=== PATIENT | male | born 1935 | race Caucasian/White ===

== ENCOUNTER 2017-05-18 08:46 | Observation (INO) | payer OTHER ==
[2017-05-10 13:59] VITALS: BMI 27.0
--- NOTE | 2017-05-10 14:23 | PAT Medication Instructions ---
Service Date May 10, 2017. Current Home Medication List Ascorbic Acid (Vitamin C/Janine Hips Tr), 1 TAB PO QAM Ciprofloxacin (Ciprofloxacin HCl), 1 TAB PO BID Finasteride (Proscar), 5 MG PO QAM Multiple Vitamins W/ Minerals (Centrum Silver Adult 50+), 1 TAB PO QAM Omeprazole (Prilosec), 20 MG PO QAM Sennosides-Docusate Sodium (Stool Softener), 2 TAB PO QAM Medication Instructions For Your Scheduled Surgery - Continue as directed: Ciprofloxacin (Ciprofloxacin HCl), 1 TAB PO BID - Hold the following medications the morning of surgery: Sennosides-Docusate Sodium (Stool Softener), 2 TAB PO QAM Multiple Vitamins W/ Minerals (Centrum Silver Adult 50+), 1 TAB PO QAM Ascorbic Acid (Vitamin C/Janine Hips Tr), 1 TAB PO QAM - Take the following medications the morning of surgery with a sip of water OTHERWISE NOTHING TO EAT OR DRINK AFTER MIDNIGHT: Finasteride (Proscar), 5 MG PO QAM Omeprazole (Prilosec), 20 MG PO QAM If you have any questions please call us at [phone] or [phone] or [phone]
--- NOTE | 2017-05-10 15:08 | DIAGNOSTIC IMAGING REPORT ---
CHEST 2 VIEWS ROUTINE CLINICAL HISTORY: pat preoperative evaluation COMPARISON STUDY: 10/07/2014 FINDINGS: Chronic fibrotic change medial left base. Lungs otherwise are clear. Diaphragms smooth. Costophrenic angles are sharp. IMPRESSION: Chronic change. No acute process. Electronically signed by: Duc Sahu M.D. 05/10/2017 3:07 PM Dictated Date/Time: 05/10/2017 3:06 PM
[2017-05-10 15:40] LABS: BASO % 0.1 %; BASO ABS # 0.01 K/uL (0-0.2); COMPLETE YES; HEMATOCRIT 37.5 % (42-52); IG% 0.2 %; LYMPH ABS # 1.25 K/uL (1.2-3.4); MEAN CELL VOLUME 89.1 fL (80-100); MEAN CORPUSCULAR HEMOGLOBIN 29.7 pg (25-34); MEAN CORPUSCULAR HGB CONC 33.3 g/dl (32-36); MEAN PLATELET VOLUME 9.5 fL (7.4-10.4); NEUT % 70.7 %; PLATELET COUNT 262 K/uL (130-400); RED BLOOD COUNT 4.21 M/uL (4.7-6.1); WHITE BLOOD COUNT 8.34 K/uL (4.8-10.8)
[2017-05-10 15:53] LABS: BUN/CREATININE RATIO 20.7 (10-20); CALCIUM 8.3 mg/dl (8.5-10.1)
[2017-05-10 15:59] LABS: INR 1.2 (0.9-1.1); PARTIAL THROMBOPLASTIN RATIO 1.2; PROTHROMBIN TIME (PATIENT) 12.5 SECONDS (9.0-12.0)
[2017-05-18] VITALS (9 sets, daily range): BP systolic 101–189; BP diastolic 50–90; PULSE 53–79; TEMP 36.4–36.6; O2SAT 93–97; Ht 165.1 cm; Wt 74.6 kg
[~2017-05-18] VITALS: Ht 165.1 cm; Wt 74.6 kg
[~2017-05-18 08:46] MED LIST: CPR250 PO; FINA5TAB PO; GENTAMICIN INJ 240 MG in DEXTROSE 5% 100ML 100 ML IV SCH; LACTATED RINGER'S 1000ML 1,000 ML IV SCH; MULT-845 PO; PRLSR20 PO; SENNTAB23 PO; [UNRECOGNIZED DRUG - CODE] PO
[2017-05-18] MEDS ORDERED: NITR-5 PO (09:30)
[2017-05-18] MEDS ORDERED: DEXAMETHASONE SOD INJ 4 MG/ML VIAL ONE (09:48)
[2017-05-18] MEDS ORDERED: PROPOFOL IV EMULSION 10 MG/ML 20 ML VIAL IV ONE (09:48)
[2017-05-18] MEDS ORDERED: ONDANSETRON INJ 2 MG/ML 2 ML VIAL ONE (09:48)
[2017-05-18] MEDS ORDERED: LIDOCAINE HCL 2% 2 ML VIAL (20MG/ML) ONE (09:48)
[2017-05-18] MEDS ORDERED: FENTANYL CITRATE INJ 50 MCG/1 ML 2 ML VIAL ONE (09:48)
[2017-05-18] MEDS ORDERED: EpHEDrine SULFATE INJ 50 MG/ML AMP IV PRN (10:00)
[2017-05-18] MEDS ORDERED: ATROPINE SULFATE 0.1 MG/ML 5ML SYR IV PRN (10:00)
[2017-05-18] MEDS ORDERED: FENTANYL CITRATE INJ 50 MCG/1 ML 2 ML VIAL IV PRN (10:00)
[2017-05-18] MEDS ORDERED: MoRPHine SULFATE 2 MG/ML CARP ONE ×2 (10:18→12:56)
--- NOTE | 2017-05-18 11:04 | History & Physical Bridge Note ---
H&P Re-Evaluation Bridge Note: I have examined the patient, reviewed the History & Physical and in the interval since the performance of the History & Physical I have noted the following changes of clinical significance: No changes noted
--- NOTE | 2017-05-18 11:25 | Anesthesiology Progress Note ---
Anesthesia Post Op Note Date & Time May 18, 2017 at 11:25 Vital Signs Pain Intensity: 0 Vital Signs Past 12 Hours Date Time Temp Pulse Resp B/P (MAP) Pulse Ox O2 Delivery O2 Flow Rate FiO2 05/18/17 09:00 36.5 65 20 170/82 (111) 95 Room Air Notes Mental Status: alert / awake / arousable, participated in evaluation Pt Amnestic to Procedure: Yes Nausea / Vomiting: adequately controlled Pain: adequately controlled Airway Patency, RR, SpO2: stable & adequate BP & HR: stable & adequate Hydration State: stable & adequate Anesthetic Complications: no major complications apparent
[2017-05-18] MEDS ORDERED: EpHEDrine SULFATE INJ 50 MG/ML AMP ONE (11:30)
--- NOTE | 2017-05-18 13:29 | [facility] Post Operative Brief Note ---
Immediate Operative Summary Operative Date May 18, 2017. Pre-Operative Diagnosis Urinary retention, benign prostate hypertrophy Post-Operative Diagnosis Same as pre-op Procedure(s) Performed Transuretheral Resection of Prostate, Bladder Biopsy Surgeon Dr Arzate Peanut Butter Maker Surgeon(s) None Estimated Blood Loss 50 Findings posterior wall of bladder with papillary changes that could not be distinguished between bladder cancer and catheter trauma was biopsied pt with moderate sized obstructing prostate Specimens A: Posterior Wall, Bladder biopsy B. prostate chips
[2017-05-18] MEDS ORDERED: MoRPHine SULFATE 2 MG/ML CARP IV PRN (13:30)
[2017-05-18] MEDS ORDERED: HYDROCODONE/ACETAMOPHEN 5/325MG TAB PO PRN (13:30)
--- NOTE | 2017-05-18 13:40 | [facility] Operative Report ---
Operative Report Operative Date May 18, 2017. Pre-Operative Diagnosis Urinary retention, benign prostate hypertrophy Surgeon Dr Arzate Cognos Bi Administrator Surgeon(s) None Estimated Blood Loss 50 Findings obstructed prostate papillary changes on posterior wall Specimens A: Posterior Wall, Bladder biopsy B. prostate chips Drains 22 polo w 30 cc ballon Disposition Recovery Room / PACU Description of Procedure The patient was taken to the cystoscopy suite where general anesthesia was administered. He was given gentamicin preoperatively and had Venodyne stockings placed prior to anesthesia. Cystoscopy was performed with a 21 Syrian cystoscope. Papillary changes on the posterior wall were biopsied and these areas were cauterized. Resectoscope was passed using the bipolar button resection was performed of the patient's prostate. The 1. loop was used to resect some prostate tissue. And then the button was replaced. Then of the procedure there was a good channel from the vera montanum into the bladder all the chips were retrieved from the bladder. The ureteral orifices were seen and away from the resection. There is no evidence of any bleeding in the prostatic urethra. A 22 Syrian Polo catheter was passed with a catheter guide and 30 mL were placed in the balloon. The catheter was irrigated and the urine was clear. The patient was transferred to the recovery room in stable condition. I attest to the content of the Intraoperative Record and any orders documented therein. Any exceptions are noted below.
[2017-05-18] MEDS ORDERED: IV FLUIDS COMPLETED PRN (13:45)
[2017-05-18] MEDS: SODIUM CHLORIDE 0.9% 1000ML 1,000 ML IV SCH (14:33)
--- NOTE | 2017-05-18 15:56 | Medical Consult ---
Consultation Date of Consultation: May 18, 2017. Attending Physician: Jeovanny Arzate M.D. Reason for Consultation: Medical Management History of Present Illness This is a 81 yo M with PMHx of urinary retention, BPH, remote smoking history from age [age] with unspecified amount, recent hx of indwelling polo x 6 weeks and now s/p TURP by Dr. Arzate. The patient, his , and daughter are all present at bedside. The patient was seen and examined this afternoon, he is doing very well s/p TURP, and reports not having any pain. He has not yet been up and moving about since the procedure, normally he ambulates without any assistance. He is wearing oxygen, but asked me why the oxygen needs to be on, he doesn't require any supplemental O2 at baseline. The patient denies passing gas or having a bowel movement yet. He has been ordered a diet although has not eaten anything yet, he is requesting to be fed. He reports that he has not previously followed with the PCP, but that he most recently saw Renaldo Townsend PA-C, in [facility]. I have asked the patient and his to follow up with him within 1-2 weeks after discharge. Past Medical/Surgical History Urinary Retention BPH s/p Turp Social History Smoking Status: Former Smoker Smokeless Tobacco Use: No Alcohol Use: none Drug Use: none Marital Status: Housing Status: lives with significant other Occupation Status: employed Allergies Coded Allergies: No Known Allergies (Unverified , 05/18/17) Current Inpatient Medications Current Inpatient Medications Medications (Trade) Dose Ordered Sig/Jolynn Route Start Time Stop Time Status Last Admin Dose Admin Lactated Ringer's 1,000 ml @ 15 mls/hr Q24H IV 05/18/17 06:00 05/19/17 05:59 05/18/17 09:10 15 MLS/HR Gentamicin Sulfate 240 mg/ Dextrose 106 ml @ 100 mls/hr PREOP@0600 IV 05/18/17 06:00 05/18/17 16:00 05/18/17 11:10 100 MLS/HR Sodium Chloride 1,000 ml @ 80 mls/hr [id number] IV 05/18/17 13:29 06/17/17 13:28 05/18/17 14:33 80 MLS/HR Morphine Sulfate (MoRPHine SULFATE INJ) 2 mg Q1H PRN IV 05/18/17 13:30 06/01/17 13:29 Acetaminophen/ Hydrocodone Bitart ([place] 5/325 Tab) 1 tab Q4H PRN PO 05/18/17 13:30 06/01/17 13:29 Trimethoprim/ Sulfamethoxazole (Septra 400/80MG Tab) 1 tab Q12H PO 05/18/17 13:45 05/19/17 13:44 UNV Miscellaneous (Iv Fluids Completed) 1 ea PRN PRN N/A 05/18/17 13:45 05/18/18 13:44 Review of Systems Constitutional: No fever, sweats or chills Eyes: No diplopia, no worsening or blurred vision ENT: normal hearing, no trouble swallowing Respiratory: No cough, sputum, dyspnea at rest or on exertion Cardiovascular: No chest pain, tightness or palpitations Abdomen: No pain, nausea, vomiting, diarrhea or constipation Musculoskeletal: No joint pain, calf pain, swelling Neurologic: No weakness, numbness/tingling, or balance problems Psychiatric: No anxiety or depression Skin: No rash or itch Physical Exam Date Time Temp Pulse Resp B/P (MAP) Pulse Ox O2 Delivery O2 Flow Rate FiO2 05/18/17 15:15 36.4 53 18 174/89 (117) 97 Nasal Cannula 3.0 05/18/17 15:07 189/89 (122) 05/18/17 14:45 53 15 188/80 (116) 96 Nasal Cannula 2.0 05/18/17 14:15 93 Nasal Cannula 3.0 05/18/17 14:15 Nasal Cannula 3.0 05/18/17 13:50 36.5 59 14 158/91 95 Nasal Cannula 3 05/18/17 13:40 64 14 145/87 96 Nasal Cannula 3 05/18/17 13:30 57 14 156/86 96 Mask 10 05/18/17 13:20 73 14 146/75 95 Mask 10 05/18/17 13:13 36.6 80 14 163/88 97 Mask 10 05/18/17 09:00 36.5 65 20 170/82 (111) 95 Room Air General: awake, alert, no apparent distress Head: Normocephalic, atraumatic ENT: PERRL, EOMI, no pharyngeal exudate, mucous membranes moist Chest: On 2 L O2 via NC, + faint crackles at bilateral bases, no wheezes rales. Cardiac: Regular rate and rhythm, no murmur, no JVD, normal peripheral pulses, good capillary refill Abdominal: NABS x 4 quadrants, soft, nontender to palpation, no rebound, guarding or tenderness : indwelling Polo catheter in place, draining clear yellow urine, no hematuria, no clots Extremities: Normal inspection, no peripheral edema or erythema, calfs nontender to palpation Psych: Normal mood and affect Neuro: AAO x 3, strength intact bilaterally and related 5/5, no motor deficits, speech is clear, no peripheral sensory deficits Skin: dark and light pigmentation changes over skin on face, chest and back. Assessment & Plan This is a 81 yo M with PMHx of urinary retention, BPH, remote smoking history from age [age] with unspecified amount, recent hx of indwelling polo x 6 weeks and now s/p TURP by Dr. Arzate. BPH / Urinary retention s/p TURP by Dr. Arzate on 05/18/17 - Pain control with [place] 1 tab Q4H prn & morphine 1 mg IV Q2H prn per the primary team - Continue indwelling Polo for now, void trial per the primary team - Patient received 1 dose of gentamicin prior to procedure, continue Bactrim Q12H per primary team - Flomax currently held Hypertension - Medical service consulted for this reason - Likely chronic as the patient has not followed with PCP in the past, and patient reports that his BP is commonly in the 140s to 150s. Today SBP has been in 160s to 180s, patient denies anxiety or pain at all today. The patient's heart rate has been in the 50s and 60s, so will not add on a beta joselo at this time. - Start the patient on lisinopril 5 mg daily, first dose now. His Cr. is good at 1.00 currently, baseline appears to be 1.1-1.2 - IV hydralazine 25 mg IV Q6H for SBP > 160 - Patient will require follow-up with newly designated PCP, Renaldo Vasqeuz, in [place] within 1-2 weeks after discharge DVT prophylaxis: Teds, SCDs CODE STATUS: Full code Disposition: Patient from home, lives with his , likely discharge within 1- 2 days. Thank you for this consultation, we will continue to follow along. Patient is seen postoperatively from a TURP, he has a history of hypertension, he presents now with continued persistent hypertension postop The patient has not had frequent medical care however this TURP resulted from BPH requiring a chronic indwelling Polo catheter Despite his hypertension he said no chest pain pressure shortness of breath Vital signs show blood pressures be elevated 170 over 90s heart rate is not tachycardic Cardiac is regular slight lungs are clear there is no peripheral edema Hypertension in poor control, the patient was started on low-dose lisinopril with backup hydralazine when necessary with instructions to follow-up his primary care provider after discharge for further titration of his medications
[2017-05-18] MEDS ORDERED: HydrALAZINE HCL 20 MG/ML VIAL IV. PRN (16:45)
[2017-05-18] MEDS: LISINOPRIL 5 MG TAB PO SCH (17:26)
[2017-05-18] MEDS: SULFAMETHOXAZOLE/TRIMETHOPRIM 400/80MG TAB PO SCH (21:15)
[2017-05-18] MEDS ORDERED: SODIUM CHLORIDE 0.65% NA SOLN 45 ML (OCEAN) ONE (23:24)
[2017-05-18] MEDS ORDERED: NURSING VERBAL MED ORDER ONE (23:30)
[2017-05-18] MEDS ORDERED: SODIUM CHLORIDE 0.65% NA SOLN 45 ML (OCEAN) PRN (23:45)
[2017-05-19] MEDS: SODIUM CHLORIDE 0.9% 1000ML 1,000 ML IV SCH (01:53)
[2017-05-19 03:32] VITALS: BP 132/55; PULSE 62; TEMP 36.6; O2SAT 96
[2017-05-19 06:55] VITALS: BP 152/71; PULSE 70; TEMP 36.6; O2SAT 97
[2017-05-19] MEDS: SULFAMETHOXAZOLE/TRIMETHOPRIM 400/80MG TAB PO SCH (07:13)
[2017-05-19] MEDS: LISINOPRIL 5 MG TAB PO SCH (07:13)
[2017-05-19] MEDS ORDERED: HydrALAZINE HCL 20 MG/ML VIAL IV. PRN (08:45)
--- NOTE | 2017-05-19 09:44 | Progress Note ---
Subjective Date of Service: May 19, 2017. Subjective Pt evaluation today including: conversation w/ patient, physical exam, chart review Voiding: polo catheter in place 81 year old male POD#[address] Arzate. Pt noted to have increased BP post op. He reports his BP is usually high. Appreciate Hospitalist input. Started on oral lisinopril as well as prn hydralazine. BP at a more normal range for pt. Otherwise he is doing well post op. Denies pain, nausea or vomiting. Ambulating in room. Tolerating diet. Polo intact draining clear yellow urine. He was on Macrobid prior to surgery for small amount (10,000) enterococcus in his urine. He has been afebrile. Review of Systems Constitutional: No fever, No chills Eyes: No worsening of vision ENT: No hearing loss Respiratory: No cough, No wheezing, No shortness of breath, No dyspnea on exertion Cardiac: No chest pain Abdomen: No pain, No nausea, No vomiting, No diarrhea, No constipation Male : + see HPI Psychiatric: No depression symptoms Heme: No abnormal bleeding/bruising Endo: No fatigue Objective Vital Signs Date Time Temp Pulse Resp B/P (MAP) Pulse Ox O2 Delivery O2 Flow Rate FiO2 05/19/17 07:15 Nasal Cannula 05/19/17 06:55 36.6 70 17 152/71 (98) 97 Nasal Cannula 3.0 05/19/17 03:32 36.6 62 16 132/55 (80) 96 Nasal Cannula 2.0 05/18/17 23:07 36.6 79 18 101/50 (67) 94 Nasal Cannula 3.0 05/18/17 20:51 36.5 57 18 167/83 (111) 95 Nasal Cannula 3.0 05/18/17 20:00 Nasal Cannula 3.0 05/18/17 17:15 36.5 56 16 177/82 (113) 97 Nasal Cannula 3.0 05/18/17 16:15 36.4 58 20 187/90 (122) 97 Nasal Cannula 3.0 05/18/17 15:15 36.4 53 18 174/89 (117) 97 Nasal Cannula 3.0 05/18/17 15:07 189/89 (122) 05/18/17 14:45 53 15 188/80 (116) 96 Nasal Cannula 2.0 05/18/17 14:15 93 Nasal Cannula 3.0 05/18/17 14:15 Nasal Cannula 3.0 05/18/17 13:50 36.5 59 14 158/91 95 Nasal Cannula 3 05/18/17 13:40 64 14 145/87 96 Nasal Cannula 3 05/18/17 13:30 57 14 156/86 96 Mask 10 05/18/17 13:20 73 14 146/75 95 Mask 10 05/18/17 13:13 36.6 80 14 163/88 97 Mask 10 Physical Exam General Appearance: WD/WN, no apparent distress Eyes: normal inspection ENT: hearing grossly normal Neck: no JVD Respiratory/Chest: no respiratory distress, no accessory muscle use Extremities: normal range of motion, non-tender Neurologic/Psychiatric: alert, normal mood/affect, oriented x 3 Assessment and Plan BPH with urinary retention s/p TURP BP decreased with lisinopril- will send him home on this and he will follow up with his PCP in 1-2 weeks. Doing well post op otherwise. Polo was removed without issue. Plan to d/c pt home today once he voids. He will continue the Macrobid he has at home until finished.
[2017-05-19] MEDS ORDERED: LISI-729 PO (09:48)
[2017-05-19] MEDS ORDERED: HYDR-5688 PO (09:48)
--- NOTE | 2017-05-19 09:52 | Discharge Instructions ---
Discharge Instructions Date of Service May 19, 2017. Admission Reason for Admission: Urinary Retention, Benign Prostatic Hyperplasia Discharge Discharge Diagnosis / Problem: Urinary retention; Benign Prostatic hyperplasia. Discharge Goals Goal(s): Improve function, Increase independence, Improve disease control, Prevent Disease Progression Activity Recommendations Activity Limitations: per Instructions/Follow-up section . Instructions / Follow-Up Instructions / Follow-Up 1. Do not lift >10lbs until follow up with Dr. Arzate. You may engage in light activity such as walking and stairs as tolerated. 2. Do not drive while taking narcotics. 3. Finish all of the antibiotic you have been prescribed. Macrobid 100 mg BID x 10 days. 4. Follow-up with your primary care provider in 1-2 weeks to discuss blood pressure. Prescription given to start Lisinopril 5 mg daily at home. 5. Follow up with Urology as scheduled. Please call our office at [phone] if you need to reschedule for any reason. . Current Hospital Diet Hospital Diet(s): Regular Diet Discharge Diet Recommended Diet: Regular Diet Procedures Procedures Performed: Transuretheral Resection of Prostate, Bladder Biopsy Pending Studies Studies pending at discharge: no Medical Emergencies . Who to Call and When: Medical Emergencies: If at any time you feel your situation is an emergency, please call 911 immediately. . Non-Emergent Contact Non-Emergency issues call your: Primary Care Provider, Urologist Call Non-Emergent contact if: temperature is above 101.5, your pain is not controlled . . "Provider Documentation" section prepared by Rosalie Ramires. . VTE Core Measure Inpt VTE Proph given/why not?: Unfractionated heparin SQ, SCD's [place] Drug Monitoring Program Search Results: no issues identified
[2017-05-19 10:27] VITALS: BP 152/71; PULSE 70; TEMP 36.6; O2SAT 97
--- NOTE | 2017-05-19 16:17 | Progress Note ---
Subjective Date of Service: May 19, 2017. Subjective Pt evaluation today including: conversation w/ patient, conversation w/ family , physical exam, chart review, lab review, review of inpatient medication list being discharged by urology. no complaints. notes that to the best of his knowledge BP only up when he's in the hospital and has had procedures done. has BP cuff at home, but he only checks his BP randomly and not frequently. relates he thinks he typically runs 140/90 or less as outpt Review of Systems all other ROS otherwise negative except for as above Objective Vital Signs Date Time Temp Pulse Resp B/P (MAP) Pulse Ox O2 Delivery O2 Flow Rate FiO2 05/19/17 10:27 36.6 70 17 97 Room Air 05/19/17 07:15 Nasal Cannula 05/19/17 06:55 36.6 70 17 152/71 (98) 97 Nasal Cannula 3.0 05/19/17 03:32 36.6 62 16 132/55 (80) 96 Nasal Cannula 2.0 05/18/17 23:07 36.6 79 18 101/50 (67) 94 Nasal Cannula 3.0 05/18/17 20:51 36.5 57 18 167/83 (111) 95 Nasal Cannula 3.0 05/18/17 20:00 Nasal Cannula 3.0 05/18/17 17:15 36.5 56 16 177/82 (113) 97 Nasal Cannula 3.0 05/18/17 16:15 36.4 58 20 187/90 (122) 97 Nasal Cannula 3.0 Physical Exam General Appearance: no apparent distress Eyes: EOMI ENT: hearing grossly normal (slightly MATCH-E-BE-NASH-SHE-WISH BAND but able to hear well with sl loud voice) Neck: trachea midline Respiratory/Chest: no respiratory distress, no accessory muscle use Extremities: normal range of motion Neurologic/Psychiatric: gold charmer II-XII nml as tested, alert, normal mood/affect Skin: normal color, warm/dry Assessment and Plan elevated BP without clear dx of HTN -since he's fairly sure he runs better at home, and is not in hypertensive crisis ranges in hospital - d/c home on no new meds -- follow BP at least daily , randomly, then f/u w PCP 1-2 weeks to review readings. if truly running high then can start lisinopril, if not then would hold off. saw that urology had written for lisinopril at discharge - will have RN Emilio contact pt to hold off on taking this for now until follows BP readings at home and better determines if truly necessary medically appears stable/acceptable for home
--- NOTE | 2017-06-20 22:24 | DISCHARGE SUMMARY ---
HISTORY OF PRESENTATION AND HOSPITAL COURSE: The patient is an 81-year-old man, who presented with acute urinary retention, who came to the hospital for a transurethral resection of his prostate on 05/18/2017. This procedure went without difficulty. Please refer to the operative report for this procedure's description. Postoperatively, he had an indwelling Zimmer catheter with relatively clear urine. He did well overnight without any significant complications. The next day, his catheter was removed and he was able to void without difficulty. His urine was relatively clear. He was discharged to home in stable condition, able to void, with an appointment to follow up in several weeks.
== END 2017-05-19 11:41 | disposition home or self-care (01) ==
LOC: C.ACU 08:46 → C.MSW 13:33 → ENRESERV 13:56
PROVIDERS: ADMIT Urology; ATTEND Urology
DX: C67.4 Malignant neoplasm of posterior wall of bladder (principal); N40.1 Benign prostatic hyperplasia with lower urinary tract symptoms; N13.8 Other obstructive and reflux uropathy; N41.1 Chronic prostatitis; Z79.899 Other long term (current) drug therapy

== ENCOUNTER → 2017-10-06 | Outpatient (CLI) | payer OTHER ==
[~2017-10-06] MED LIST changes: -CPR250 PO; -FINA5TAB PO; -GENTAMICIN INJ 240 MG in DEXTROSE 5% 100ML 100 ML IV SCH; -LACTATED RINGER'S 1000ML 1,000 ML IV SCH; +POLY335019 PO; -SENNTAB23 PO
== END | disposition home or self-care (01) ==
LOC: C.LABSPEC 15:26
PROVIDERS: ATTEND Urology
DX: R33.9 Retention of urine, unspecified (principal); N39.0 Urinary tract infection, site not specified

== ENCOUNTER → 2017-11-09 | Outpatient (CLI) | payer OTHER | END | disposition home or self-care (01) | LOC: C.LABSPEC 16:42 | PROVIDERS: ATTEND Urology | DX: R33.9 Retention of urine, unspecified (principal); N39.0 Urinary tract infection, site not specified ==

== ENCOUNTER → 2017-12-21 | Outpatient (CLI) | payer OTHER | END | disposition home or self-care (01) | LOC: C.LABSPEC 17:19 | PROVIDERS: ATTEND Urology | DX: R33.9 Retention of urine, unspecified (principal); N40.1 Benign prostatic hyperplasia with lower urinary tract symptoms ==

== ENCOUNTER 2018-06-29 14:25 | Emergency (ER) | payer OTHER ==
[~2018-06-29] VITALS: Ht 165.1 cm; Wt 74.7 kg
[2018-06-29 14:29] VITALS: Ht 165.1 cm; Wt 74.7 kg
[2018-06-29] MEDS ORDERED: SODIUM CHLORIDE 0.9% 500ML 500 ML IV STA (15:42)
[2018-06-29] MEDS ORDERED: SODIUM CHLORIDE 0.9% 1000ML 1,000 ML IV STA (15:42)
--- NOTE | 2018-06-29 15:57 | EMERGENCY ROOM VISIT NOTE ---
History Report prepared by Miki: Benita Butler Under the Supervision of: Dr. Celina Urrutia M.D. First contact with patient: 15:35 Chief Complaint: URINARY SYMPTOMS Stated Complaint: PASSING BLOOD CLOTS THROUGH URIN Nursing Triage Summary: pt c/o urinary frequency, passing clots. "I felt like I needed to go, but couldn't get anything out". Attempted to cath himself at home. Blood inurine. reports hx of Prostate Hx by Dr Arzate last year, it closed up and pt had it redone. Dr Arzate then suggested a catheter 2x/daily to keep it open, pt reports he had been doing that through May. Then decreased to every other day. Pt reports Bladder infection tried to take Azo at home. History of Present Illness The patient is an 82 year old male who presents to the Emergency Room with complaints of urinary symptoms this morning. The patient reports that this morning he felt like he had to urinate but was unable to do so. The patient states that when he was able to go that he was passing blood clots and that he had burning with urination. The patient reports that he then used a catheter and that he was able to get a good amount out but he reports that it was all bloody. Patient has urinated on his own since the catheterization. He reports a history of prostate issues and that he had laser surgery done by Dr. Arzate twice and subsequently had a polo catheter. Once the catheter was d/c, pt did straight cath twice per day from January to May 2018. He no longer requires this on a regular basis. The patient denies being on blood thinners. Source of History: patient Onset: this morning Position: other (bladder) Quality: other (urinary symptoms) Timing: constant Review of Systems See HPI for pertinent positives & negatives. A total of 10 systems reviewed and were otherwise negative. Past Medical & Surgical Medical Problems: (1) GERD (gastroesophageal reflux disease) (2) Osteoarthritis (3) Retention of urine Surgical Problems: (1) History of arthroplasty of right knee (2) History of hernia repair Family History Patient reports no known family medical history. Social History Smoking Status: Never Smoker Drug Use: none Marital Status: Housing Status: lives with significant other Occupation Status: employed Current/Historical Medications Scheduled Ascorbic Acid (Vitamin C/Janine Hips Tr), 1 TAB PO QAM Methenamine Hippurate (Methenamine Hippurate), 1 GM PO BID Multiple Vitamins W/ Minerals (Centrum Silver Adult 50+), 1 TAB PO QAM Omeprazole (Prilosec), 20 MG PO QAM Tamsulosin Hcl (Flomax), 0.8 MG PO DAILY Scheduled PRN Polyethylene Glycol 3350 (Miralax), 17 GM PO DAILY PRN for Constipation Allergies Coded Allergies: No Known Allergies (Unverified , 06/29/18) Physical Exam Vital Signs Date Time Temp Pulse Resp B/P (MAP) Pulse Ox O2 Delivery O2 Flow Rate FiO2 06/29/18 19:04 36.6 67 22 130/74 93 06/29/18 16:55 67 22 130/65 93 Room Air 06/29/18 16:30 20 117/66 06/29/18 16:15 68 06/29/18 14:29 36.6 76 18 165/86 96 Room Air Physical Exam Vital signs reviewed. General: Well-appearing elderly male, in no significant distress. HEENT: No scleral icterus, PERRLA, neck supple. Atraumatic. Cardiovascular: Regular rate and rhythm, no extra sounds. Pulmonary: Clear to auscultation bilaterally, normal work of breathing. Abdomen: Soft, mild suprapubic discomfort, nondistended, positive bowel sounds. Musculoskeletal: Atraumatic, no peripheral edema. No CVA tenderness. : Normal male genitals, no particular swelling or deformity to the scrotum/ testicles. Neurologic: Patient awake alert and oriented x 3 Skin: Warm, dry, no rash Medical Decision & Procedures ER Provider Diagnostic Interpretation: Radiology results as stated below per my review and radiologist interpretation: CT SCAN OF THE ABDOMEN AND PELVIS WITHOUT IV CONTRAST CLINICAL HISTORY: Hematuria. COMPARISON STUDY: No priors. TECHNIQUE: CT scan of the abdomen and pelvis is performed from the lung bases to the proximal femora. Images are reviewed in the axial, sagittal, and coronal planes. IV contrast was not administered for this examination as per the referring clinician. A dose lowering technique was utilized adhering to the principles of ALARA. CT DOSE: 637.64 mGycm FINDINGS: Lung bases: The heart is inlet and without pericardial effusion. There are coronary artery calcifications. A small hiatal hernia is noted. There is mild bibasilar scarring/atelectasis. No airspace consolidation or pleural effusion is identified. Liver: The unenhanced liver is normal in size, contour, and attenuation. There is no intrahepatic biliary ductal dilatation. There are scattered calcified hepatic granulomas. Gallbladder: Unremarkable. Spleen: Normal in size and attenuation. There are calcified splenic granulomas. Pancreas: The unenhanced pancreas is atrophic and grossly unremarkable. Adrenal glands: Unremarkable. Kidneys: The unenhanced kidneys are normal in size and without hydronephrosis. There is mild fullness of the right renal collecting system. There is a 3 mm nonobstructing calculus in the right upper pole. A 4 cm cyst is noted in the left upper pole. Additional subcentimeter cortical hypodensities also likely represent cysts but are too small for definitive characterization. Abdominal vasculature: The abdominal aorta is normal in course and caliber noting moderate atherosclerotic calcification. Bowel: There is moderate colonic diverticulosis without CT evidence of acute diverticulitis. No bowel obstruction is seen. Moderate fecal retention is noted in the right colon. The appendix is not clearly identified. Peritoneum: There is no intraperitoneal free air or abdominal ascites. There is a fat-containing umbilical hernia. Lymphadenopathy: None. Pelvic viscera: The bladder is decompressed around a Polo catheter and not well assessed. There is an approximately 7 x 4.5 cm hyperdense structure in the right hemipelvis seen on image #353. The density is consistent with hematoma, and this may be contained within a bladder diverticulum. The prostate gland is enlarged and heterogeneous. Skeletal structures: The skeletal structures are osteopenic. Mild/moderate lumbosacral spondylosis is observed. Degenerative change and partial fusion is noted in the sacroiliac joints. No lytic or blastic lesions are seen. IMPRESSION: 1. There is an approximately 7 x 4.5 cm hyperdense structure in the right pelvis. The attenuation values are typical for blood products/hematoma, and this may represent blood clots within a large bladder diverticulum. A hemorrhagic mass lesion is considered less likely but cannot be excluded. Follow-up with urology is recommended. 2. The bladder is decompressed around a Polo catheter and not well evaluated. 3. Nonobstructing right renal calculus. 4. Cardiomegaly. 5. Moderate colonic diverticulosis without CT evidence of acute diverticulitis. 6. Additional findings as above. Electronically signed by: Declan Nicholson M.D. 06/29/2018 5:06 PM Dictated Date/Time: 06/29/2018 4:49 PM Laboratory Results 06/29/18 16:06 Red Blood Count 3.79, Mean Corpuscular Volume 90.0, Mean Corpuscular Hemoglobin 30.3, Mean Corpuscular Hemoglobin Concent 33.7, Mean Platelet Volume 9.3, Neutrophils (%) (Auto) 87.1, Lymphocytes (%) (Auto) 7.5, Monocytes (%) (Auto) 4.9, Eosinophils (%) (Auto) 0.2, Basophils (%) (Auto) 0.1, Neutrophils # (Auto) 11.44, Lymphocytes # (Auto) 0.99, Monocytes # (Auto) 0.65, Eosinophils # (Auto) 0.02, Basophils # (Auto) 0.01 06/29/18 18:10 Test 06/29/18 15:46 06/29/18 16:06 06/29/18 17:49 06/29/18 18:10 Urine Color RED Urine Appearance CLOUDY (CLEAR) Urine pH (4.5-7.5) Urine Specific Fountain 1.017 (1.000-1.030) Urine Protein POS (NEG) Urine Glucose (UA) (NEG) Urine Ketones (NEG) Urine Occult Blood (NEG) Urine Nitrite (NEG) Urine Bilirubin (NEG) Urine Urobilinogen (NEG) Urine Leukocyte Esterase (NEG) Urine RBC >30 /hpf (0-4) Urine WBC >30 /hpf (0-5) Urine Epithelial Cells 5-10 /lpf (0-5) Urine Bacteria NEG (NEG) White Blood Count 13.14 K/uL (4.8-10.8) Red Blood Count 3.79 M/uL (4.7-6.1) Hemoglobin 11.5 g/dL (14.0-18.0) Hematocrit 34.1 % (42-52) Mean Corpuscular Volume 90.0 fL (80-100) Mean Corpuscular Hemoglobin 30.3 pg (25-34) Mean Corpuscular Hemoglobin Concent 33.7 g/dl (32-36) Platelet Count 284 K/uL (130-400) Mean Platelet Volume 9.3 fL (7.4-10.4) Neutrophils (%) (Auto) 87.1 % Lymphocytes (%) (Auto) 7.5 % Monocytes (%) (Auto) 4.9 % Eosinophils (%) (Auto) 0.2 % Basophils (%) (Auto) 0.1 % Neutrophils # (Auto) 11.44 K/uL (1.4-6.5) Lymphocytes # (Auto) 0.99 K/uL (1.2-3.4) Monocytes # (Auto) 0.65 K/uL (0.11-0.59) Eosinophils # (Auto) 0.02 K/uL (0-0.5) Basophils # (Auto) 0.01 K/uL (0-0.2) RDW Standard Deviation 42.7 fL (36.4-46.3) RDW Coefficient of Variation 13.1 % (11.5-14.5) Immature Granulocyte % (Auto) 0.2 % Immature Granulocyte # (Auto) 0.03 K/uL (0.00-0.02) Total Bilirubin 0.5 mg/dl (0.2-1) Direct Bilirubin 0.1 mg/dl (0-0.2) Aspartate Amino Transf (AST/SGOT) 19 U/L (15-37) Alanine Aminotransferase (ALT/SGPT) 22 U/L (12-78) Alkaline Phosphatase 134 U/L (45-117) Total Protein 6.8 gm/dl (6.4-8.2) Albumin 3.6 gm/dl (3.4-5.0) Bedside Hemoglobin 10.2 g/dl (14.0-18.0) Bedside Hematocrit 30 % (42-52) Bedside Sodium 128 mEq/L (135-144) Bedside Potassium 7.0 mEq/L (3.3-5.0) Bedside Chloride 94 mEq/L (101-112) Bedside Total CO2 28 mEq/l (24-31) Bedside Blood Urea Nitrogen 32 mg/dl (7-18) Bedside Creatinine 1.3 mg/dl (0.6-1.3) Bedside Glucose (other) 103 mg/dl (70-99) Bedside Ionized Calcium (Delmar) 1.04 mmol/l (1.12-1.32) Prothrombin Time 12.0 SECONDS (9.0-12.0) Prothromb Time International Ratio 1.1 (0.9-1.1) Anion Gap 6.0 mmol/L (3-11) Est Creatinine Clear Calc Drug Dose 45.2 ml/min Estimated GFR () 66.4 Estimated GFR (Non- 57.3 BUN/Creatinine Ratio 19.7 (10-20) Calcium Level 8.1 mg/dl (8.5-10.1) Laboratory results per my review. Medications Administered Medications (Trade) Dose Ordered Sig/Jolynn Route Start Time Stop Time Status Last Admin Dose Admin Sodium Chloride 500 ml @ 999 mls/hr Q31M STAT IV 06/29/18 15:42 06/29/18 16:12 DC 06/29/18 15:42 999 MLS/HR Sodium Chloride 1,000 ml @ 125 mls/hr Q8H STAT IV 06/29/18 15:42 06/29/18 19:21 DC 06/29/18 15:42 125 MLS/HR ECG Per My Interpretation Indication: other (hyperkalemia) Rate (beats per minute): 67 Rhythm: normal sinus Findings: no acute ischemic change, no ectopy, other (No T wave abnl identified ) ED Course 1546: Past medical records reviewed. The patient was evaluated in room B5. A complete history and physical examination was performed. 1708: I checked on the patient. His urine is still bloody. The nurse will continue to irrigate his catheter until it is clear. 1738: I irrigated the patient's catheter. It looks good and is clear. They will do an i-STAT on the patient. Medical Decision The patient is an 82 year old male who presents to the ED with complaints of urinary symptoms. Differentials include bladder mass, hemorrhagic cystitis, prostatitis, renal mass, anticoagulation, and kidney stone. This patient was evaluated and appeared to be in no significant distress. IV access was obtained and laboratory work was drawn. Polo catheter was placed and bladder was irrigated until clear. CT scan of the abdomen and pelvis was ordered and reveals a hematoma with a likely bladder diverticulum. Review of past records was performed and reveals a bladder diverticulum visualized on cystoscopy last year. Patient's urine had returned to dark red. Additional irrigation was performed by myself and the nurse. Polo catheter was draining well and urine was clear. Patient's laboratory work reveals a creatinine of 1.3 with a sodium of 129 and K of 5.3. I-STAT labs were performed with a potassium of 7. This is felt to be erroneous as the EKG is normal, renal function is normal. A repeat laboratory PRP was performed with a normal potassium of 4.9. She is also found to be mildly hyponatremic. Patient prefers to be discharged if possible. He was given instruction regarding irrigation of the Polo catheter if it becomes blocked. Will follow up with urology this week for reevaluation. He is advised to return to the ED for worsening of symptoms or any medical concerns. Medication Reconcilliation Current Medication List: was personally reviewed by me Blood Pressure Screening Patient's blood pressure: Elevated blood pressure Blood pressure disposition: Elevated BP felt to be situational Impression Primary Impression: Gross hematuria Additional Impression: Bladder diverticulum Scribe Attestation The scribe's documentation has been prepared under my direction and personally reviewed by me in its entirety. I confirm that the note above accurately reflects all work, treatment, procedures, and medical decision making performed by me. Departure Information Referrals Renaldo Webb PA-C (PCP) Patient Instructions My [facility] Problem Qualifiers
[2018-06-29 16:23] LABS: BASO % 0.1 %; BASO ABS # 0.01 K/uL (0-0.2); EOS % 0.2 %; EOS ABS # 0.02 K/uL (0-0.5); HEMATOCRIT 34.1 % (42-52); HEMOGLOBIN 11.5 g/dL (14.0-18.0); IG# 0.03 K/uL (0.00-0.02); LYMPH % 7.5 %; LYMPH ABS # 0.99 K/uL (1.2-3.4); MEAN CORPUSCULAR HEMOGLOBIN 30.3 pg (25-34); MEAN CORPUSCULAR HGB CONC 33.7 g/dl (32-36); MEAN PLATELET VOLUME 9.3 fL (7.4-10.4); MONO % 4.9 %; MONO ABS # 0.65 K/uL (0.11-0.59); NEUT % 87.1 %; NEUT ABS # 11.44 K/uL (1.4-6.5); PLATELET COUNT 284 K/uL (130-400); RED CELL DISTRIBUTION WIDTH CV 13.1 % (11.5-14.5); RED CELL DISTRIBUTION WIDTH SD 42.7 fL (36.4-46.3); WHITE BLOOD COUNT 13.14 K/uL (4.8-10.8)
[2018-06-29] MEDS ORDERED: TAMS0.4C38 PO (16:34)
[2018-06-29] MEDS ORDERED: METH-1305 PO (16:34)
[2018-06-29 16:45] LABS: ALBUMIN 3.6 gm/dl (3.4-5.0); CALCIUM 8.5 mg/dl (8.5-10.1); CREATININE 1.31 mg/dl (0.60-1.40); POTASSIUM 5.3 mmol/L (3.5-5.1); TOTAL PROTEIN 6.8 gm/dl (6.4-8.2)
--- NOTE | 2018-06-29 17:08 | DIAGNOSTIC IMAGING REPORT ---
CT SCAN OF THE ABDOMEN AND PELVIS WITHOUT IV CONTRAST CLINICAL HISTORY: Hematuria. COMPARISON STUDY: No priors. TECHNIQUE: CT scan of the abdomen and pelvis is performed from the lung bases to the proximal femora. Images are reviewed in the axial, sagittal, and coronal planes. IV contrast was not administered for this examination as per the referring clinician. A dose lowering technique was utilized adhering to the principles of ALARA. CT DOSE: 637.64 mGycm FINDINGS: Lung bases: The heart is inlet and without pericardial effusion. There are coronary artery calcifications. A small hiatal hernia is noted. There is mild bibasilar scarring/atelectasis. No airspace consolidation or pleural effusion is identified. Liver: The unenhanced liver is normal in size, contour, and attenuation. There is no intrahepatic biliary ductal dilatation. There are scattered calcified hepatic granulomas. Gallbladder: Unremarkable. Spleen: Normal in size and attenuation. There are calcified splenic granulomas. Pancreas: The unenhanced pancreas is atrophic and grossly unremarkable. Adrenal glands: Unremarkable. Kidneys: The unenhanced kidneys are normal in size and without hydronephrosis. There is mild fullness of the right renal collecting system. There is a 3 mm nonobstructing calculus in the right upper pole. A 4 cm cyst is noted in the left upper pole. Additional subcentimeter cortical hypodensities also likely represent cysts but are too small for definitive characterization. Abdominal vasculature: The abdominal aorta is normal in course and caliber noting moderate atherosclerotic calcification. Bowel: There is moderate colonic diverticulosis without CT evidence of acute diverticulitis. No bowel obstruction is seen. Moderate fecal retention is noted in the right colon. The appendix is not clearly identified. Peritoneum: There is no intraperitoneal free air or abdominal ascites. There is a fat-containing umbilical hernia. Lymphadenopathy: None. Pelvic viscera: The bladder is decompressed around a Zimmer catheter and not well assessed. There is an approximately 7 x 4.5 cm hyperdense structure in the right hemipelvis seen on image #353. The density is consistent with hematoma, and this may be contained within a bladder diverticulum. The prostate gland is enlarged and heterogeneous. Skeletal structures: The skeletal structures are osteopenic. Mild/moderate lumbosacral spondylosis is observed. Degenerative change and partial fusion is noted in the sacroiliac joints. No lytic or blastic lesions are seen. IMPRESSION: 1. There is an approximately 7 x 4.5 cm hyperdense structure in the right pelvis. The attenuation values are typical for blood products/hematoma, and this may represent blood clots within a large bladder diverticulum. A hemorrhagic mass lesion is considered less likely but cannot be excluded. Follow-up with urology is recommended. 2. The bladder is decompressed around a Zimmer catheter and not well evaluated. 3. Nonobstructing right renal calculus. 4. Cardiomegaly. 5. Moderate colonic diverticulosis without CT evidence of acute diverticulitis. 6. Additional findings as above. Electronically signed by: Declan Nicholson M.D. 06/29/2018 5:06 PM Dictated Date/Time: 06/29/2018 4:49 PM
[2018-06-29 18:04] LABS: ISTAT CREATININE 1.3 mg/dl (0.6-1.3); ISTAT IONIZED CALCIUM 1.04 mmol/l (1.12-1.32)
[2018-06-29 18:31] LABS: INR 1.1 (0.9-1.1)
[2018-06-29 18:37] LABS: CALCIUM 8.1 mg/dl (8.5-10.1); CREATININE 1.17 mg/dl (0.60-1.40); POTASSIUM 4.9 mmol/L (3.5-5.1)
[2018-06-29 19:04] VITALS: BP 130/74; PULSE 67; TEMP 36.6; O2SAT 93
== END 2018-06-29 19:05 | disposition home or self-care (01) ==
LOC: C.EDB 14:26
DX: R31.9 Hematuria, unspecified (principal); N32.3 Diverticulum of bladder; K21.9 Gastro-esophageal reflux disease without esophagitis; M19.90 Unspecified osteoarthritis, unspecified site

== ENCOUNTER 2018-07-01 11:44 | Emergency (ER) | payer OTHER ==
[~2018-07-01] VITALS: Ht 165.1 cm; Wt 74.1 kg
[~2018-07-01 11:44] MED LIST changes: +METH-1305 PO; +TAMS0.4C38 PO
[2018-07-01 11:46] VITALS: TEMP 36.6; Ht 165.1 cm; Wt 74.1 kg
[2018-07-01] MEDS ORDERED: SODIUM CHLORIDE 0.9% 1000ML 1,000 ML IV STA (12:01)
--- NOTE | 2018-07-01 12:02 | EMERGENCY ROOM VISIT NOTE ---
History Report prepared by Miki: Benita Butler Under the Supervision of: Dr. Celina Urrutia M.D. First contact with patient: 11:51 Chief Complaint: URINARY SYMPTOMS Stated Complaint: BLOOD IN URINE History of Present Illness The patient is an 82 year old male who presents to the Emergency Room with complaints of constant urinary symptoms beginning over the last several days. The patient states that he was here 2 days ago for blood in his urine and states that he has still had blood in his urine. The patient reports a history of a laser surgery to his prostate. He also reports feeling a little "woozy" this morning. The patient denies being on blood thinners. The patient's records were reviewed. He has a history of prostate cancer. He had it lasered. He has a bladder neck stricture and a history of bladder cancer. He was supposed to follow up with urology in January but skipped his appointment. Urology contacted him in May and he never followed through. Source of History: patient Onset: over the last several days Position: other (bladder) Quality: other (urinary symptoms) Timing: constant Associated Symptoms: + weakness Review of Systems See HPI for pertinent positives & negatives. A total of 10 systems reviewed and were otherwise negative. Past Medical & Surgical Medical Problems: (1) GERD (gastroesophageal reflux disease) (2) Osteoarthritis (3) Retention of urine Surgical Problems: (1) History of arthroplasty of right knee (2) History of hernia repair Family History Patient reports no known family medical history. Social History Smoking Status: Never Smoker Drug Use: none Marital Status: Housing Status: lives with significant other Occupation Status: employed Current/Historical Medications Scheduled Ascorbic Acid (Vitamin C/Janine Hips Tr), 1 TAB PO QAM Ciprofloxacin Hcl (Cipro), 500 MG PO BID Methenamine Hippurate (Methenamine Hippurate), 1 GM PO BID Omeprazole (Prilosec), 20 MG PO QAM Scheduled PRN Polyethylene Glycol 3350 (Miralax), 17 GM PO DAILY PRN for Constipation Allergies Coded Allergies: No Known Allergies (Unverified , 06/29/18) Physical Exam Vital Signs Date Time Temp Pulse Resp B/P (MAP) Pulse Ox O2 Delivery O2 Flow Rate FiO2 07/01/18 15:14 60 19 178/62 96 07/01/18 14:20 62 16 181/83 97 Room Air 07/01/18 13:27 66 18 171/95 97 07/01/18 11:46 36.6 127 18 171/79 97 Room Air Physical Exam Vital signs reviewed. General: Well-appearing male, in no significant distress. Zimmer catheter in place has dark red sanguinous urine. No clot appreciated. HEENT: No scleral icterus, PERRLA, neck supple. Atraumatic. Cardiovascular: Regular rate and rhythm, no extra sounds. Pulmonary: Clear to auscultation bilaterally, normal work of breathing. Abdomen: Soft, nontender, nondistended, positive bowel sounds. Musculoskeletal: Atraumatic, no peripheral edema. Neurologic: Patient awake alert and oriented x 3 Skin: Warm, dry, no rash Medical Decision & Procedures Laboratory Results 07/01/18 12:20 Red Blood Count 3.74, Mean Corpuscular Volume 89.8, Mean Corpuscular Hemoglobin 30.2, Mean Corpuscular Hemoglobin Concent 33.6, Mean Platelet Volume 9.0, Neutrophils (%) (Auto) 76.5, Lymphocytes (%) (Auto) 13.0, Monocytes (%) (Auto) 8.6, Eosinophils (%) (Auto) 1.5, Basophils (%) (Auto) 0.1, Neutrophils # (Auto) 5.92, Lymphocytes # (Auto) 1.01, Monocytes # (Auto) 0.67, Eosinophils # (Auto) 0.12, Basophils # (Auto) 0.01 07/01/18 12:20 Test 07/01/18 12:20 White Blood Count 7.75 K/uL (4.8-10.8) Red Blood Count 3.74 M/uL (4.7-6.1) Hemoglobin 11.3 g/dL (14.0-18.0) Hematocrit 33.6 % (42-52) Mean Corpuscular Volume 89.8 fL (80-100) Mean Corpuscular Hemoglobin 30.2 pg (25-34) Mean Corpuscular Hemoglobin Concent 33.6 g/dl (32-36) Platelet Count 250 K/uL (130-400) Mean Platelet Volume 9.0 fL (7.4-10.4) Neutrophils (%) (Auto) 76.5 % Lymphocytes (%) (Auto) 13.0 % Monocytes (%) (Auto) 8.6 % Eosinophils (%) (Auto) 1.5 % Basophils (%) (Auto) 0.1 % Neutrophils # (Auto) 5.92 K/uL (1.4-6.5) Lymphocytes # (Auto) 1.01 K/uL (1.2-3.4) Monocytes # (Auto) 0.67 K/uL (0.11-0.59) Eosinophils # (Auto) 0.12 K/uL (0-0.5) Basophils # (Auto) 0.01 K/uL (0-0.2) RDW Standard Deviation 42.9 fL (36.4-46.3) RDW Coefficient of Variation 13.1 % (11.5-14.5) Immature Granulocyte % (Auto) 0.3 % Immature Granulocyte # (Auto) 0.02 K/uL (0.00-0.02) Anion Gap 5.0 mmol/L (3-11) Est Creatinine Clear Calc Drug Dose 49.2 ml/min Estimated GFR () 74.0 Estimated GFR (Non- 63.9 BUN/Creatinine Ratio 13.8 (10-20) Calcium Level 8.2 mg/dl (8.5-10.1) Laboratory results per my review. Medications Administered Medications (Trade) Dose Ordered Sig/Jolynn Route Start Time Stop Time Status Last Admin Dose Admin Sodium Chloride 1,000 ml @ 150 mls/hr Q6H40M STAT IV 07/01/18 12:01 07/01/18 15:39 DC 07/01/18 12:26 150 MLS/HR Ciprofloxacin (Cipro Tab) 500 mg NOW STAT PO 07/01/18 14:33 07/01/18 14:34 DC 07/01/18 15:09 500 MG ED Course 1156: Past medical records reviewed. The patient was evaluated in room C11B. A complete history and physical examination was performed. 1240: We will put in a bigger catheter, use a coude, and will irrigate. 1440: Upon reevaluation, the patient's catheter is now draining clear urine. I discussed findings with him. He verbalized agreement of the treatment plan. He was discharged home. Medical Decision The patient is an 82 year old male who presents to the ED with complaints of urinary symptoms. Differentials include bladder mass, hemorrhagic cystitis, prostatitis, renal mass, kidney stone, bladder neck contracture, or prostatic hemorrhage. This patient was evaluated and appeared to be in no significant distress. He does seem to be somewhat concerned about the recurrence of bleeding in the catheter. He has irrigated it at home however denies any occlusion of the catheter. The patient does have a history of a bladder neck stricture, chronic prostatitis status post laser surgery, bladder diverticulum. This time I suspect the prostate as well as bleeding. A larger catheter was placed by nursing staff. Patient's urine was almost clear with just a pink tinge. He will be placed on Cipro 500 mg twice daily for 3 weeks to cover a chronic prostatitis and advised to follow-up with urology as soon as possible. He has expressed an understanding and agrees. Medication Reconcilliation Current Medication List: was personally reviewed by me Blood Pressure Screening Patient's blood pressure: Elevated blood pressure Blood pressure disposition: Referred to PCP Impression Primary Impression: Chronic prostatitis with hematuria Scribe Attestation The scribe's documentation has been prepared under my direction and personally reviewed by me in its entirety. I confirm that the note above accurately reflects all work, treatment, procedures, and medical decision making performed by me. Departure Information Dispostion Home / Self-Care Prescriptions Ciprofloxacin Hcl (CIPRO) 500 Mg Tab 500 MG PO BID, #42 TAB Prov: Celina Urrutia M.D. 07/01/18 Referrals Jose Webb DO (PCP) Jeovanny Arzate M.D. Forms HOME CARE DOCUMENTATION FORM, IMPORTANT VISIT INFORMATION Patient Instructions My [facility] Additional Instructions Diagnosis: Chronic prostatitis with hematuria Please irrigate the catheter as needed if it becomes obstructed. Cipro 500 mg twice daily for 7 days. You can stop your other antibiotic, methenamine, until otherwise instructed by urology. Drink plenty of clear fluids to keep the Zimmer catheter flushed. Case management will help arrange short-term follow-up within the next week with urology. Return to the emergency department for worsening of symptoms or any medical concerns.
[2018-07-01 12:29] LABS: BASO % 0.1 %; BASO ABS # 0.01 K/uL (0-0.2); EOS % 1.5 %; EOS ABS # 0.12 K/uL (0-0.5); HEMATOCRIT 33.6 % (42-52); HEMOGLOBIN 11.3 g/dL (14.0-18.0); IG# 0.02 K/uL (0.00-0.02); LYMPH ABS # 1.01 K/uL (1.2-3.4); MEAN CELL VOLUME 89.8 fL (80-100); MEAN CORPUSCULAR HEMOGLOBIN 30.2 pg (25-34); MEAN CORPUSCULAR HGB CONC 33.6 g/dl (32-36); MONO % 8.6 %; MONO ABS # 0.67 K/uL (0.11-0.59); NEUT % 76.5 %; NEUT ABS # 5.92 K/uL (1.4-6.5); PLATELET COUNT 250 K/uL (130-400); RED CELL DISTRIBUTION WIDTH CV 13.1 % (11.5-14.5); RED CELL DISTRIBUTION WIDTH SD 42.9 fL (36.4-46.3); WHITE BLOOD COUNT 7.75 K/uL (4.8-10.8)
[2018-07-01 12:46] LABS: CALCIUM 8.2 mg/dl (8.5-10.1); CREATININE 1.07 mg/dl (0.60-1.40); POTASSIUM 4.9 mmol/L (3.5-5.1)
[2018-07-01] MEDS ORDERED: CIPROFLOXACIN 500 MG TAB PO STA (14:33)
[2018-07-01] MEDS ORDERED: CIPR-255 PO (14:54)
[2018-07-01 15:14] VITALS: BP 178/62; PULSE 60; O2SAT 96
== END 2018-07-01 15:16 | disposition home or self-care (01) ==
LOC: C.EDB 11:45 → C.EDC 15:16
DX: N41.1 Chronic prostatitis (principal); R31.9 Hematuria, unspecified; K21.9 Gastro-esophageal reflux disease without esophagitis; Z98.890 Other specified postprocedural states; Z79.899 Other long term (current) drug therapy; Z85.46 Personal history of malignant neoplasm of prostate; Z85.51 Personal history of malignant neoplasm of bladder; Z96.0 Presence of urogenital implants

== ENCOUNTER → 2018-07-10 | Outpatient (CLI) | payer OTHER ==
[~2018-07-10] MED LIST changes: +CIPR-255 PO; -MULT-845 PO; -TAMS0.4C38 PO
== END | disposition home or self-care (01) ==
LOC: C.PATHSPEC 17:14
PROVIDERS: ATTEND Urology
DX: R82.8 Abnormal findings on cytological and histological examination of urine (principal); C67.9 Malignant neoplasm of bladder, unspecified

== ENCOUNTER 2024-08-02 18:23 | Inpatient (IN) ==
[2024-08-02 19:30] LABS: Basophils # (auto) 0.02 K/uL (0.00-0.20); Basophils % (auto) 0.2 %; Eosinophils # (auto) 0.05 K/uL (0.00-0.50); Eosinophils % (auto) 0.5 %; Hematocrit (blood only) 31.2 % (42.0-52.0); Hemoglobin 10.9 g/dl (14.0-18.0); Immature Granulocytes # (auto) 0.03 K/uL (0.01-0.20); Immature Granulocytes % (auto) 0.3 %; Lymphocytes % (auto) 4.2 %; Mean Corpuscular Hemoglobin 30.4 pg (25.0-34.0); Mean Corpuscular Hgb Conc 34.9 g/dL (32.0-36.0); Mean Corpuscular Volume 86.9 fL (80.0-100.0); Mean Platelet Volume 8.6 fL (9.4-12.4); Monocytes # (auto) 1.09 K/uL (0.11-0.59); Monocytes % (auto) 11.5 %; Neutrophils # (auto) 7.89 K/uL (1.40-6.50); Neutrophils % (auto) 83.3 %; Platelet Count 337 K/uL (130-400); RDW Coefficient of Variation 12.6 % (11.5-14.5); RDW Standard Deviation 40.2 fL (36.4-46.3); Red Blood Count 3.59 M/uL (4.70-6.10); White Blood Count 9.48 K/ul (4.8-10.8)
[2024-08-02 19:55] LABS: Alanine Aminotransferase 23 U/L (7-52); Albumin Globulin Ratio 1.7 (0.9-2); Albumin Level 4.3 gm/dl (3.4-5.0); Alkaline Phosphatase 178 U/L (34-104); Anion Gap 4 (3-11); Aspartate Aminotransferase 28 U/L (13-39); BUN Creatinine Ratio 13.8 (10-20); Bilirubin,Total 0.4 mg/dl (0.2-1.0); Blood Urea Nitrogen 20 mg/dl (6-23); Calcium 8.9 mg/dl (8.6-10.3); Carbon Dioxide 29 mmol/L (21-32); Chloride 83 mmol/L (98-107); Est GFR (African American) 49.1 ml/min; Est GFR (Non-African American) 42.4 ml/min; Globulin 2.5 gm/dl (2.5-4.0); Glucose 113 mg/dl (70-99(Fasting)); Lipase 7 U/L (11-82); Potassium 5.5 mmol/L (3.5-5.1); Sodium 116 mmol/L (136-145); Total Protein 6.8 gm/dl (6.0-8.3)
[2024-08-02] MEDS: SODIUM CHLORIDE 0.9% 500 ML IV ONE (20:14)
--- NOTE | 2024-08-02 20:29 | Emergency Department Note ---
Impression & Plan Weakness, Anemia, Vomiting, Acute hyponatremia, Acute UTI ED Provider Note NAME: WOO GREGORIO AGE: 88 SEX: M : 1935 ARRIVES VIA: Walk-In INFORMANT: [Patient][family] ED PROVIDER(S): [Declan Gaviria MD] CHIEF COMPLAINT: Vomiting, weak HISTORY OF PRESENT ILLNESS: The patient is an 88-year-old male whose had some issues recently with his urinary flow. He had some procedures performed and then after, developed a UTI. He has been on Bactrim now for around 10 days. This week, for the last few days, the patient has been weak and vomiting. No one-sided weakness, he is just generally weak. There has been no chest pain or abdominal pain. No fever, he appears to be a bit short of breath when he is up and doing things. No cough or congestion. PMHx/PSHx/Social Hx: See Below PHYSICAL EXAM: GENERAL: Patient is in no acute distress. HEENT: No acute trauma, normocephalic atraumatic, mucous membranes moist, no nasal congestion. NECK: No stridor, no adenopathy, no meningismus, trachea is midline. LUNGS: Clear to auscultation bilaterally, no wheeze, no rhonchi, breath sounds equal. HEART: Without murmurs gallops or rubs, regular rate and rhythm. ABDOMEN: Soft, nontender, no peritonitis. EXTREMITIES: No cyanosis, full range of motion of all the joints without pain or difficulty. NEUROLOGIC: Oriented x 3, no acute motor or sensory deficits, no focal weakness. SKIN: No jaundice, no diaphoresis. Slightly pale. DIFFERENTIAL DIAGNOSIS: Dehydration, medication reaction, electrolyte imbalance, UTI, renal failure, among others. EMERGENCY DEPARTMENT PROCEDURES: MEDICAL DECISION MAKING: There is no leukocytosis. There is an anemia present however, this appears baseline. There was a normal platelet count. Sodium was quite low at 116. Chloride was low at 87. Potassium somewhat elevated at just over 5. There was some mild acute kidney injury with a slight elevation to the creatinine. No concerning liver enzyme elevation. No evidence for pancreatitis. Urinalysis does show findings of infection. Abdominal and pelvis CT did not show any urinary obstruction, constipation was noted. ECG showed a sinus rhythm, no ischemia. Cardiac enzyme testing x 1 was not consistent with acute cardiac injury. On exam, the patient was not febrile or toxic. The patient was found to be quite hyponatremic. He was dehydrated. He still appeared to have a UTI. Hospitalization was indicated. The patient received IV Zofran for nausea. He was given IV saline for hydration and to help correct his hyponatremia. He received IV ceftriaxone as coverage for his UTI. I did speak with the patient and family, I spoke with case management, the on- call hospitalist was consulted. Prior/Outside records/notes reviewed: None ECG per my interpretation: Indication was weakness. The ECG shows a normal sinus rhythm with a rate of 72. There is no acute ST elevation, no PVCs. The QTc is 411. Continuous Cardiac Monitoring per my interpretation: An order was placed for continuous cardiac monitoring. The monitor shows a rate of 72 with normal sinus rhythm. Imaging/x-ray results per my interpretation: Chronic Medical/Social conditions affecting care: Advanced age. Care/Management discussed with: Case management, the on-call hospitalist. Level of care consideration(s): After review of the information above and other included data: --I believe the patient requires escalation of care to admission DISPOSITION: Admission Past Med/Surg History Problem List (Updated 08/03/24 @ 12:17 by Declan Gaviria MD) Acute UTI (Acute) Acute hyponatremia (Acute) Vomiting (Acute) Anemia (Acute) Weakness (Acute) Hyperkalemia Vomiting Hyponatremia VERENICE (acute kidney injury) Osteoarthritis (Chronic) GERD (gastroesophageal reflux disease) (Chronic) Post-operative state (Acute 11/24/14) Post-operative state (Acute 01/05/15) History of arthroplasty of right knee (Chronic) "11/2014" History of hernia repair (Chronic) Retention of urine Medical History Anemia UTI (urinary tract infection) Social History Smoking Status: Never smoker Hx Alcohol Use: No Hx Substance Use: No Preferred Language: Greek Watch Repairer Required: No Current Living Situation: Spouse Feels Safe at Home: Yes Safety Concerns: Feels Safe At This Time Assistive Devices: None Allergies Allergies Allergy/AdvReac Type Severity Reaction Status Date / Time No Known Allergies Allergy Unverified 06/29/18 16:34 Home Meds Home Medications Medication Instructions Recorded Confirmed OMEPRAZOLE (PRILOSEC) 20 mg PO QAM #0 caps 05/10/17 08/02/24 amlodipine 5 mg tablet 5 mg PO DAILY 08/02/24 08/02/24 loratadine-pseudoephedrine ER 10 1 tab PO DAILY 08/02/24 08/02/24 mg-240 mg tablet,extended [id number] (Claritin-D 24 Hour) omeprazole 20 mg tablet,delayed 20 mg PO DAILY 08/02/24 08/02/24 release polyethylene glycol 3350 17 gram 17 g PO DAILY 08/02/24 08/02/24 oral powder packet (Miralax) Results & Data (ED) Vital Signs Vital Signs - 24 hr 08/02/24 18:24 08/02/24 20:25 08/02/24 20:30 Temperature 36.6 C Temperature Source Temporal Artery Scan Pulse Rate 72 67 Pulse Rate from SpO2 Sensor Respiratory Rate 18 Blood Pressure 148/77 H 142/68 H Blood Pressure Mean 100 106 Pulse Oximetry 99 Sepsis Recent Fever Within 48 Hours No Sepsis New/Unexplained Change in Mental Status N/A Sepsis Action Taken by Nursing No Action Required 08/02/24 20:30 08/02/24 20:33 08/02/24 21:00 Temperature Temperature Source Pulse Rate 68 72 Pulse Rate from SpO2 Sensor 70 72 Respiratory Rate 22 23 Blood Pressure 142/68 H 153/73 H Blood Pressure Mean 106 99 Pulse Oximetry 91 96 Sepsis Recent Fever Within 48 Hours Sepsis New/Unexplained Change in Mental Status Sepsis Action Taken by Retirement Medications Current Medication List: was personally reviewed by me Laboratory Data Attestation: I reviewed the patient's lab results. 08/03/24 02:59 08/03/24 02:59 Lab Results 08/02/24 08/02/24 08/02/24 Range/Units 19:15 19:18 21:12 WBC 9.48 (4.8-10.8) K/ul RBC 3.59 L (4.70-6.10) M/uL Hgb 10.9 L (14.0-18.0) g/dl Hct 31.2 L (42.0-52.0) % MCV 86.9 (80.0-100.0) fL MCH 30.4 (25.0-34.0) pg MCHC 34.9 (32.0-36.0) g/dL RDW Std Deviation 40.2 (36.4-46.3) fL RDW Coeff of Callie 12.6 (11.5-14.5) % Plt Count 337 (130-400) K/uL MPV 8.6 L (9.4-12.4) fL Immature Gran % (Auto) 0.3 % Neut % (Auto) 83.3 % Lymph % (Auto) 4.2 % [place] % (Auto) 11.5 % Eos % (Auto) 0.5 % Baso % (Auto) 0.2 % Neut # (Auto) 7.89 H (1.40-6.50) K/uL Lymph # (Auto) 0.40 L (1.20-3.40) K/uL [place] # (Auto) 1.09 H (0.11-0.59) K/uL Eos # (Auto) 0.05 (0.00-0.50) K/uL Baso # (Auto) 0.02 (0.00-0.20) K/uL Immature Gran # (Auto) 0.03 (0.01-0.20) K/uL Sodium 116 L* (136-145) mmol/L Potassium 5.5 H (3.5-5.1) mmol/L Chloride 83 L (98-107) mmol/L Carbon Dioxide 29 (21-32) mmol/L Anion Gap 4 (3-11) BUN 20 (6-23) mg/dl Creatinine 1.45 H (0.6-1.4) mg/dl Est Cr Clr Drug Dosing Not Reportable Est GFR ( Amer) 49.1 ml/min Est GFR (Non-Af Amer) 42.4 ml/min BUN/Creatinine Ratio 13.8 (10-20) Glucose 113 H (70-99(Fasting)) mg/dl Osmolality 253 L (280-300) mOsm/kg Calcium 8.9 (8.6-10.3) mg/dl Magnesium 2.1 (1.7-2.4) mg/dl Total Bilirubin 0.4 (0.2-1.0) mg/dl AST 28 (13-39) U/L ALT 23 (7-52) U/L Alkaline Phosphatase 178 H (34-104) U/L Troponin I High Sens 4.8 (0-20) pg/ml Total Protein 6.8 (6.0-8.3) gm/dl Albumin 4.3 (3.4-5.0) gm/dl Globulin 2.5 (2.5-4.0) gm/dl Albumin/Globulin Ratio 1.7 (0.9-2) Lipase 7 L (11-82) U/L Urine Color Yellow Urine Appearance Turbid A (Clear) Urine pH 8.0 H (4.5-7.5) Ur Specific [place] 1.010 (1.000-1.030) Urine Protein 1+ H (Negative) Urine Glucose (UA) Negative (Negative) Urine Ketones Negative (Negative) Urine Blood 2+ H (Negative) Urine Nitrite Negative (Negative) Urine Bilirubin Negative (Negative) Urine Urobilinogen Negative (Negative) Ur Leukocyte Esterase 3+ H (Negative) Urine WBC (Auto) >50 H (0-5) /hpf Urine RBC (Auto) >20 H (0-2) /hpf U Hyaline Cast (Auto) 0-2 (0-2) /lpf U Epithel Cells (Auto) 0-2 (0-2) /hpf Urine Bacteria (Auto) 2+ H (None Seen) Urine Osmolality 300 L (500-800) mOsm/kg Ur Random Sodium 37 mmol/L Administered Medications Amlodipine Besylate (Amlodipine Besylate 5 Mg Tab) 5 mg PO DAILY BERT Stop: 09/02/24 08:59 Last Admin: 08/03/24 08:41 Dose: 5 mg Documented By: ENRIQUE Heparin Sodium (Porcine) (Heparin Sod 5,000 Unit/0.5 Ml Vial) 5,000 units SQ Q12 BERT Stop: 09/02/24 08:59 Last Admin: 08/03/24 08:40 Dose: 5,000 units Documented By: MLK Sodium Chloride (Nss) 1,000 mls @ 100 mls/hr IV .Q10H BERT Stop: 08/03/24 17:44 Last Admin: 08/03/24 08:40 Dose: 100 mls/hr Documented By: Infusion: 08/03/24 08:21 Dose: Infused Documented By: Admin: 08/02/24 22:21 Dose: 100 mls/hr Documented By: ALLISON Pantoprazole Sodium (Pantoprazole 40 Mg Tab) 40 mg PO DAILY BERT Stop: 09/02/24 08:59 Last Admin: 08/03/24 08:41 Dose: 40 mg Documented By: ENRIQUE Polyethylene Glycol (Polyethylene (Miralax) 17 Gm Pack) 17 gm PO DAILY BERT Stop: 09/02/24 08:59 Last Admin: 08/03/24 08:40 Dose: 17 gm Documented By: ENRIQUE Sodium Chloride (Sodium Chloride 1 Gm Tablet) 1 gm PO BID BERT Stop: 09/02/24 08:59 Last Admin: 08/03/24 08:41 Dose: 1 gm Documented By: ENRIQUE Discontinued Medications Docusate Sodium (Docusate Sodium 100 Mg Cap) 100 mg PO NOW ONE Stop: 08/03/24 07:51 Last Admin: 08/03/24 08:41 Dose: 100 mg Documented By: ENRIQUE Sodium Chloride (Nss) 500 mls @ 999 mls/hr IV .Q31M ONE Stop: 08/02/24 20:40 Last Infusion: 08/02/24 22:19 Dose: Infused Documented By: Admin: 08/02/24 20:14 Dose: 999 mls/hr Documented By: ALLISON Ceftriaxone Sodium (Rocephin) 2,000 mg in 50 mls @ 100 mls/hr IV NOW STA Stop: 08/02/24 21:11 Last Infusion: 08/02/24 22:18 Dose: Infused Documented By: Admin: 08/02/24 21:06 Dose: 100 mls/hr Documented By: ALLISON Lidocaine HCl (Lidocaine 2% Jelly 5 Ml Tube) Confirm Administered Dose 5 ml EXT .STK-MED ONE Stop: 08/02/24 23:09 Last Admin: 08/03/24 07:05 Dose: Not Given Documented By: KILEY Ondansetron HCl (Ondansetron Inj 2 Mg/Ml 2 Ml Vial) 4 mg IV NOW STA Stop: 08/02/24 20:24 Last Admin: 08/02/24 21:06 Dose: 4 mg Documented By: ALLISON Sodium Chloride (Sodium Chloride 1 Gm Tablet) 1 gm PO NOW STA Stop: 08/02/24 22:01 Last Admin: 08/02/24 22:19 Dose: 1 gm Documented By: ALLISON Tamsulosin HCl (Tamsulosin Hcl 0.4 Mg Cap) 0.4 mg PO NOW ONE Stop: 08/02/24 22:26 Last Admin: 08/02/24 23:11 Dose: 0.4 mg Documented By: BMK Discharge Plan Visit Data Chief Complaint: Vomiting Stated Complaint: VOMIT, WEAK, UTI ED Provider: Declan Gaviria Discharge Problem: Weakness, Anemia, Vomiting, Acute hyponatremia, Acute UTI Patient Disposition: Admitted As Inpatient Condition: Fair Discharge Instructions Interventions: ED Discharge Assessment Last Done: 08/03/24 02:17 Discharge Problem: Anemia Qualifiers: Anemia type: unspecified type Qualified Code(s): D64.9 - Anemia, unspecified Vomiting Qualifiers: Vomiting type: unspecified Nausea presence: with nausea Qualified Code(s): R 11.2 - Nausea with vomiting, unspecified
[2024-08-02 20:30] LABS: Appearance Urine Turbid (Clear); Bacteria Urine Automated 2+ (None Seen); Bilirubin Urine Negative (Negative); Blood Urine 2+ (Negative); Cast Urine Automated 0-2 /lpf (0-2); Color Urine Yellow; Epithelial Cell Urine Auto 0-2 /hpf (0-2); Glucose Urine UA Negative (Negative); Ketones Urine Negative (Negative); Leukocyte Esterase Urine 3+ (Negative); Nitrite Urine Negative (Negative); Protein Urine 1+ (Negative); RBC Urine Automated >20 /hpf (0-2); Urobilinogen Urine Negative (Negative); WBC Urine Automated >50 /hpf (0-5)
--- NOTE | 2024-08-02 20:37 | History & Physical Report ---
Date of Service August 02, 2024 Assessment & Plan (1) VERENICE (acute kidney injury): Plan: Patient came in on 08/02 for nausea, vomiting, and fatigue Patient was placed on Bactrim x 10 days for UTI on Tuesday 07/24 BUN 20, creatinine 1.45 (only other baseline is 1.07 from 2018), EGFR 42.4 Avoid nephrotoxic agents where possible IVF resuscitation with NSS at 100mL/hr x 2 L A.m. CBC, BMP, mag (2) Hyponatremia: Plan: Severe acute hyponatremia at 116 on arrival Suspect this is secondary to VERENICE/UTI SIADH labs ordered, pending Sodium chloride tablets 1000 mg BID NSS 1000 mL bolus + IVF maintenance (as above) Trend BMP q4h for now; monitor for overcorrection (3) UTI (urinary tract infection): Plan: UA positive on arrival Clinically, patient endorses hematuria and burning with urination (which have largely resolved over the past week) Working to obtain records from Dr. Delgado's office for notes on recent urologic procedures + prior UCxs Ceftriaxone 2000 mg IV q24h for now (4) Retention of urine: Plan: Post-void residual on bladder scan was 560cc Zimmer ordered Tansulosin 0.4mg HS (5) Vomiting: Plan: Nausea x 3 days, and acute onset of vomiting around noon on 08/02 A/P CT without contrast ordered, pending IV antiemetics as needed (6) Hyperkalemia: Plan: K 5.5 on arrival In the setting of VERENICE IVF (as above) Continuous telemetry monitoring Trend BMP; signed out to overnight team to add calcium gluconate, insulin, D5 if K>6.0 (7) Anemia: Plan: Chronic; mild; Hgb 10.9 on arrival; MCV WNL at 86.9 No signs of bleeding on clinical exam Recheck a.m. CBC [facility] Full [facility] Regular diet VTE PPx: Heparin 5000u SQ q12h History of Present Illness Chief Complaint: Vomiting Primary Care Provider: DO Jameson Mcdowell is an 88-year-old male with PMH of urinary retention, GERD, and osteoarthritis. He presented on 08/02 for new onset nausea, vomiting, and generalized weakness. Patient reports that he was started on Bactrim 800-160 mg BID last Tuesday 07/24 for his UTI. He completed the course of 10 days and was set to take his last pill tonight. Patient reports he has had nausea over the past 3 days and began vomiting today around noon. He has had decreased appetite, and is only been able to eat things like Jell-O. Patient took his regular morning medications today; only recent change in medication was Bactrim. He was previously having burning with urination, but this has resolved. He al so reports that he had blood in his urine a couple days ago but this also resolved. He has had decreased urine Marlo frequency over the past week. Patient had a surgical procedure a couple months ago with Dr. Nathan Delgado (Urology) at [facility]. He was having urinary retention, he reports he had a procedure done to "open up". After this he had a CAUTI and had to have a second procedure done. Besides recent UTIs, he has had not had UTIs in the past several years. No supplemental oxygen at baseline. No CPAP at night. He denies any recent falls or injuries to the abdomen or pelvis. Patient denies smoking, tobacco use, or recent alcohol use. He is hypertensive at 148/77 at time of admission; vitals otherwise stable. ED course: Rocephin 2000 mg IV Zofran 4 mg IV NSS 500 mL IV ROS: Patient endorses dizziness, lightheadedness, nausea, loss of appetite, vomiting x 1, hematuria (resolved several days ago), decreased urinary frequency, and dry cough. Patient denies fever, chills, night-sweats, CESPEDES, CP, SOB, abdominal pain, burning with urination, dysuria, lower back pain, or numbness/tingling in the legs. Allergies Allergy/AdvReac Type Severity Reaction Status Date / Time No Known Allergies Allergy Unverified 06/29/18 16:34 Home Medications Medication Instructions Recorded Confirmed Type OMEPRAZOLE (PRILOSEC) 20 mg PO QAM #0 caps 05/10/17 08/02/24 History amlodipine 5 mg tablet 5 mg PO DAILY 08/02/24 08/02/24 History loratadine-pseudoephedrine ER 10 1 tab PO DAILY 08/02/24 08/02/24 History mg-240 mg tablet,extended [id number] (Claritin-D 24 Hour) omeprazole 20 mg tablet,delayed 20 mg PO DAILY 08/02/24 08/02/24 History release polyethylene glycol 3350 17 gram 17 g PO DAILY 08/02/24 08/02/24 History oral powder packet (Miralax) Past Med/Surg History Problem List (Updated 08/03/24 @ 15:04 by Kayla Foote MD) Acute hyponatremia (Acute) Vomiting (Acute) Anemia (Acute) Weakness (Acute) Hyperkalemia Vomiting Hyponatremia VERENICE (acute kidney injury) Osteoarthritis (Chronic) GERD (gastroesophageal reflux disease) (Chronic) Post-operative state (Acute 11/24/14) Post-operative state (Acute 01/05/15) History of arthroplasty of right knee (Chronic) "11/2014" History of hernia repair (Chronic) Retention of urine Medical History Anemia UTI (urinary tract infection) Social History Smoking Status: Never smoker Hx Alcohol Use: No Hx Substance Use: No Preferred Language: Pashto Manager Presentation Required: No Current Living Situation: Spouse Feels Safe at Home: Yes Safety Concerns: Feels Safe At This Time Assistive Devices: None Review of Systems Review of Systems: See HPI above Physical Exam Physical Exam: General: no acute distress; pleasant affect; non-toxic appearing; frail appearing; cooperative; SpO2 90% on RA HEENT: normocephalic, atraumatic; no scleral icterus; PERRLA; vision intact; hard of hearing Neck: supple; no lymphadenopathy; trachea midline Skin: warm, dry without signs of tenting; no cyanosis; no rashes, bruising, lesions, or erythema noted CV: chest wall NTP; RRR; S1/S2 normal; no murmurs/rubs/gallops; pulses intact and symmetric at radial, DP, and PT Lungs: no acute respiratory distress; symmetrical chest wall expansion; clear breath sounds across all lung thrasher w/o adventitious sounds; no wheezing ABD: Soft, NTP; negative suprapubic tenderness; BS present; no rebound/guarding; no distention; no rashes or bruising on the abdomen Back: Negative CVA tenderness bilaterally MSK: no tics or fasciculations; +1 pitting edema around the ankles bilaterally, nonerythematous Neuro: A&Ox3; normal mood and affect; fluent speech; no focal deficits; sensation grossly intact in the LEs b/l Results & Data Results & Data Vital Signs (Past 12 Hours) Vital Signs Temp Pulse Resp BP Pulse Ox 08/02/24 20:25 67 08/02/24 18:24 36.6 C 72 18 148/77 H 99 Laboratory Results Abnormal lab results 08/02/24 08/02/24 Range/Units 19:15 19:18 RBC 3.59 L (4.70-6.10) M/uL Hgb 10.9 L (14.0-18.0) g/dl Hct 31.2 L (42.0-52.0) % MPV 8.6 L (9.4-12.4) fL Neut # (Auto) 7.89 H (1.40-6.50) K/uL Lymph # (Auto) 0.40 L (1.20-3.40) K/uL [place] # (Auto) 1.09 H (0.11-0.59) K/uL Sodium 116 L* (136-145) mmol/L Potassium 5.5 H (3.5-5.1) mmol/L Chloride 83 L (98-107) mmol/L Creatinine 1.45 H (0.6-1.4) mg/dl Glucose 113 H (70-99(Fasting)) mg/dl Alkaline Phosphatase 178 H (34-104) U/L Lipase 7 L (11-82) U/L Urine Appearance Turbid A (Clear) Urine pH 8.0 H (4.5-7.5) Urine Protein 1+ H (Negative) Urine Blood 2+ H (Negative) Ur Leukocyte Esterase 3+ H (Negative) Urine WBC (Auto) >50 H (0-5) /hpf Urine RBC (Auto) >20 H (0-2) /hpf Urine Bacteria (Auto) 2+ H (None Seen) ECG Additional Comments: ECG revealed NSR 72 bpm; QTc 411 Code Status & VTE Plan Code Status Full code VTE Prophylaxis Plan VTE Prophylaxis will be ordered: Yes Supervising Physician Co-Signing Physician Notes Attending addendum: I have physically seen this patient, have supervised the CIPRIANO's activities, and agree with the H&P unless as otherwise noted. Assessment and Plan: Acute kidney injury- Creatinine 1.45 with baseline 1.07 May be secondary to being on bactrim for 10 days Placed on NSS at 100 mL/h for 2 L Recheck laboratories in a.m. Hyponatremia/hyperkalemia- Sodium 116 admission Potassium 5.5. Give calcium gluconate 1 g IV now, and repeat after rehydration Order serum osmolality and urine osmolality Associated with VERENICE and use of Bactrim Sodium chloride 1 g p.o. twice daily NSS 1 L bolus now, and then 100mL per hour x 2 L Urinary tract infection/urinary retention- Previously on Bactrim as outpatient Ceftriaxone 2 g IV daily Add tamsulosin 0.4 daily6 PG Care Time/CCT Total # of Minutes Spent Total Time Spent with Patient: Total time spent is greater than 50% in coordination of care (as documented) at patient's floor/unit and/or counseling patient: [place] [address] INT INP/OBS CARE 3/75MIN Patient Type New Medical Decision Making High Complexity Diagnoses VERENICE (acute kidney injury) N17.9 Hyponatremia E87.1 UTI (urinary tract infection) N39.0 Retention of urine R33.9 Vomiting R11.10 Hyperkalemia E87.5 Anemia D64.9
[2024-08-02 20:40] LABS: Magnesium 2.1 mg/dl (1.7-2.4); Troponin I High Sensitivity 4.8 pg/ml (0-20)
[2024-08-02] MEDS: cefTRIAXone SODIUM 2,000 MG/50 ML BAG IV STA (21:06)
[2024-08-02] MEDS: ONDANSETRON INJ 2 MG/ML 2 ML VIAL IV STA (21:06)
[2024-08-02] MEDS ORDERED: LACTATED RINGER'S 1,000 ML IV SCH (21:45)
[2024-08-02] MEDS ORDERED: PLASMA-LYTE A 1,000 ML IV SCH (21:45)
--- OUTSIDE RECORDS SUMMARY | 2024-08-02 22:17 | External Medical Summary | Continuity of Care Document ---
Author Name Unknown Address [address] [place] [address] Phone Organization [facility] Address [address] [place] [address] Phone Support Name Relationship Address Phone Mark Ocampo Primary Care Provider [address] [place] [address] Jb Garber Emergency Provider [address] [place] [address] Tripp Rice Emergency Provider [address] [place] [address] Nathan Delgado Attending Provider [address] [place] [address] Chief Complaint and Reason for Visit Chief Complaint CULTURE polo placement urinary catheter problem labs Allergies, Adverse Reactions, Alerts No known allergies Social History Smoking Status Status Start Date End Date Date of Observa tion Never smoked tobacco (finding) June 20, 2024 11:29am Observation Status Observation Response Date of Response Current Tobacco Use None June 17, 024 4:02pm Current Tobacco Use None June 20, 2024 11:29am Additional Data Assigned Sex Male Family History Relationship Condition Age at Onset Recorded Date/T selene Not Specified No pertinent family history Unknown Problems Active Problems Medical Problem Onset Date Status BPH (benign prostatic hyperplasia) Active Polo catheter problem Active Status post right knee replacement Active Status post left knee replacement Active Hyponatremia Active Chronic hypertension April 11, 2019 Active Otitis media Active Urinary retention Active Status post hernia repair Active Left shoulder pain Active Right shoulder pain Active Bilateral shoulder pain Active HTN (hypertension) Active Inactive/Resolved Problems Medical Problem Onset Date Status History of bilateral knee replacement Resolved History of hernia repair Resolve d Medications Medication Status Dose Units Route Directions Qty Days St art Date End Date Instructions Omeprazole Active 20 MG PO daily y 2020 7:19am Amlodipine Besylate (Norvasc) 5 mg tablet Active 5 MG PO Daily June 08, 2021 3:54pm Amlodipine Besylate (Norvasc) 5 MG tablet Discontin ued 5 MG PO Daily March 29, 2019 12:00am June 30, 2020 2:00pm Amoxicillin Discontin ued 875 MG PO Twice Daily July 12, 2020 12:00am [facility] 3:24pm Cefuroxime Axetil (Ceftin) 500 MG tablet Active 500 MG PO Twice Daily June 17, 2024 12:00am Tamsulosin Hcl (Flomax) 0.4 MG capsule Active 0.4 MG PO Daily June 17, 2024 12:00am Amlodipine Besylate (Norvasc) 5 mg tablet Discontin ued 5 MG PO Daily June 30, 2020 1:59pm June 08, 2021 3:54pm Magnesium Oxide (Mag-Ox) 400 mg (241.3 mg magnesium) tablet Active 400 MG PO daily June 30, 2020 12:00am garlic 5,000 mcg tablet Active 5 MG PO Once December 17, 2020 1:00am Tramadol Hcl Discontin ued 50 MG PO Every Night December 18, 2020 1:00am Februa ry 2020 1:02am continued therapy Multivitamin Active 1 TAB PO daily Apr l 2019 12:00am Omeprazole Discontin ued 20 MG PO daily February 24, 2020 12:00am ua 2020 7:19am Ascorbic Acid (Vitamin C) 1,000 mg tablet Active 1 G PO daily February 24, 2020 12:00am Prednisone Discontin ued 0 PO per package directions December 03, 2020 1:00am Januar y 2020 3:58pm PO PER PKG DIR Tramadol Hcl Discontin ued 50 MG PO Q12H 60 December 03, 2020 1:00am Januar y 2020 3:58pm Immunizations Immunization Event Date Not Given Reason Dose Number Wrapper Sheeter Lot Number Vaccine Information Statement (VIS) Detail SARS-COV-2 (COVID-19) MODERNA July 11, 2021 [id number] Procedures Procedure Date Performed Status Urine Culture June 17, 2024 completed Urine Culture June 17, 2024 completed Relevant Diagnostic Tests and/or Laboratory Data Laboratory Results Test Date/Time Result Interpretation Reference Range Result Comment Performing Site White Blood Count June 17, 2024 4:13pm 7.6 10^3/uL 4.1-10.2 [facility] [id number] [address] [facility] [place] [address] Red Blood Count June 17, 2024 4:13pm 3.89 10^6/uL 4.20-5.80 [facility] [id number] [address] [facility] [place] [address] Hemoglobin June 17, 2024 4:13pm 11.8 g/dL 13.0-17.0 [facility] [id number] [address] [facility] [place] [address] Hematocrit June 17, 2024 4:13pm 35.4 % 38-51 [facility] [id number] [address] [facility] [place] [address] Mean Corpuscular Volume June 17, 2024 4:13pm 91.0 fL 82.0-98.0 [facility] [id number] [address] [facility] [place] [address] Mean Corpuscular Hemoglobin June 17, 2024 4:13pm 30.3 pg 27.0-34.0 [facility] [id number] [address] [facility] [place] [address] Mean Corpuscular Hemoglobin Concent June 17, 2024 4:13pm 33.3 g/dL 31.0-36.0 [facility] [id number] [address] [facility] [place] [address] RDW Standard Deviation June 17, 2024 4:13pm 43.4 fL 37-49 [facility] [id number] [address] [facility] [place] [address] RDW Coefficient of Variation June 17, 2024 4:13pm 13.2 % 11.8-14.8 [facility] [id number] [address] [facility] [place] [address] Platelet Count June 17, 2024 4:13pm 300 10^3/uL 150-360 [facility] [id number] [address] [place] [address] Mean Platelet Volume June 17, 2024 4:13pm 8.9 fL 9.4-12.4 [facility] [id number] [address] [facility] [place] [address] Neutrophils (%) (Auto) June 17, 2024 4:13pm 72.8 % 42-75 [facility] [id number] [address] [facility] [place] [address] Lymphocytes (%) (Auto) June 17, 2024 4:13pm 15.2 % 14-42 [facility] [id number] [address] [facility] [place] [address] Monocytes (%) (Auto) June 17, 2024 4:13pm 8.5 % 4-13 [facility] [id number] [address] [facility] [place] [address] Eosinophils (%) (Auto) June 17, 2024 4:13pm 3.3 % 0-6 [facility] [id number] [address] [facility] [place] [address] Basophils (%) (Auto) June 17, 2024 4:13pm 0.1 % 0-2 [facility] [id number] [address] [facility] [place] [address] Immature Granulocytes % June 17, 2024 4:13pm 0.1 % 0.0-0.7 [facility] [id number] [address] [facility] [place] [address] Neutrophils # (Auto) June 17, 2024 4:13pm 5.5 10^3uL 1.8-6.6 [facility] [id number] [address] [facility] [place] [address] Lymphocytes # (Auto) June 17, 2024 4:13pm 1.2 10^3/uL 1.0-3.1 [facility] [id number] [address] [facility] [place] [address] Monocytes # (Auto) June 17, 2024 4:13pm 0.6 10^3uL 0.0-1.0 [facility] [id number] [address] [place] [address] Eosinophils # (Auto) June 17, 2024 4:13pm 0.3 10^3uL 0.0-0.5 [facility] [id number] [address] [place] [address] Basophils # (Auto) June 17, 2024 4:13pm 0.0 10^3/uL 0.0-0.1 [facility] [id number] [address] [place] [address] Urine Color June 17, 2024 4:05pm Lt yellow [facility] [id number] [address] [place] [address] Urine Color July 19, 2024 4:19pm Dk. yellow [facility] [id number] [address] [place] [address] Urine Clarity June 17, 2024 4:05pm Cloudy Clear [facility] [id number] [address] [place] [address] Urine Clarity July 19, 2024 4:19pm Slightly cloudy Clear [facility] [id number] [address] [place] [address] Urine pH June 17, 2024 4:05pm 6.0 6.0-8.0 [facility] [id number] [address] [place] [address] Urine pH July 19, 2024 4:19pm 6.0 6.0-8.0 [facility] [id number] [address] [place] [address] Urine Specific [place] June 17, 2024 4:05pm 1.007 1.000-1.03 0 [facility] [id number] [address] [place] [address] Urine Specific [place] July 19, 2024 4:19pm 1.010 1.000-1.03 0 [facility] [id number] [address] [place] [address] Urine Protein June 17, 2024 4:05pm Negative Negative [facility] [id number] [address] [place] [address] Urine Protein July 19, 2024 4:19pm 1+ Negative [facility] [id number] [address] [place] [address] Urine Glucose (UA) June 17, 2024 4:05pm Negative Negative [facility] [id number] [address] [place] [address] Urine Glucose (UA) July 19, 2024 4:19pm Trace Negative [facility] [id number] [address] [place] [address] Urine Ketones June 17, 2024 4:05pm Negative Negative [facility] [id number] [address] [place] [address] Urine Ketones July 19, 2024 4:19pm Negative Negative [facility] [id number] [address] [place] [address] Urine Occult Blood June 17, 2024 4:05pm Negative Negative [facility] [id number] [address] [place] [address] Urine Occult Blood July 19, 2024 4:19pm 3+ Negative [facility] [id number] [address] [place] [address] Urine Nitrate June 17, 2024 4:05pm Positive Negative [facility] [id number] [address] [place] [address] Urine Nitrate July 19, 2024 4:19pm Positive Negative [facility] [id number] [address] [place] [address] Urine Bilirubin June 17, 2024 4:05pm Negative Negative [facility] [id number] [address] [place] [address] Urine Bilirubin July 19, 2024 4:19pm Negative Negative [facility] [id number] [address] [place] [address] Urine Urobilinogen June 17, 2024 4:05pm 0.2 0.2-1.0 [facility] [id number] [address] [place] [address] Urine Urobilinogen July 19, 2024 4:19pm 1.0 0.2-1.0 [facility] [id number] [address] [place] [address] Urine Leukocyte Esterase June 17, 2024 4:05pm 3+ Negative [facility] [id number] [address] [place] [address] Urine Leukocyte Esterase July 19, 2024 4:19pm 3+ Negative [facility] [id number] [address] [place] [address] Urine RBC July 19, 2024 4:19pm Tntc /HPF 0-3 [facility] [id number] [address] [place] [address] Urine WBC June 17, 2024 4:05pm 20-30 /HPF 0-3 [facility] [id number] [address] [place] [address] Urine WBC July 19, 2024 4:19pm Tntc /HPF 0-3 [facility] [id number] [address] [place] [address] Urine Culture Indicated June 17, 2024 4:05pm Yes Urine culture to follow. [facility] [id number] [address] [place] [address] Urine Culture Indicated July 19, 2024 4:19pm Yes Urine culture to follow. [facility] [id number] [address] [place] [address] Urine Epithelial Cells July 19, 2024 4:19pm 3-6 /HPF 0-4 [facility] [id number] [address] [place] [address] Urine Bacteria June 17, 2024 4:05pm 2+ /HPF NONE SEEN [facility] [id number] [address] [place] [address] Urine Bacteria July 19, 2024 4:19pm 3+ /HPF NONE SEEN [facility] [id number] [address] [facility] [place] [address] Sodium Level June 17, 2024 4:13pm 124 mmol/L 136-145 Results checked & Critical results called to JINNY IN ER on 06/17/24 at 1649 by YOLANDA. [facility] [id number] [address] [facility] [place] [address] Potassium Level June 17, 2024 4:13pm 4.5 mmol/L 3.5-5.1 [facility] [id number] [address] [facility] [place] [address] Chloride Level June 17, 2024 4:13pm 93 mmol/L 98-107 [facility] [id number] [address] [facility] [place] [address] Carbon Dioxide Level June 17, 2024 4:13pm 27 mmol/L 21-32 [facility] [id number] [address] [facility] [place] [address] Anion Gap June 17, 2024 4:13pm 4.0 MMOL/L 1.0-15.0 [facility] [id number] [address] [facility] [place] [address] Blood Urea Nitrogen June 17, 2024 4:13pm 24 mg/dL 7-18 [facility] [id number] [address] [facility] [place] [address] Creatinine June 17, 2024 4:13pm 1.24 mg/dL 0.70-1.30 [facility] [id number] [address] [facility] [place] [address] Estimated GFR (MDRD) June 17, 2024 4:13pm 55 UNITS= mL/min/1.73m squared Unable to flag low results Results less than 60 may warrant further investigationPat ients race is not known. If the patient is , multiply the calculated GFR result provided by 1.21. GFR Estimate should not be used to alter drug dosages. [facility] [id number] [address] [facility] [place] [address] BUN/Creatinine Ratio June 17, 2024 4:13pm 19.4 10.0-20.00 [facility] [id number] [address] [facility] [place] [address] Glucose Level June 17, 2024 4:13pm 112 mg/dL 70-99 [facility] [id number] [address] [facility] [place] [address] Calculated Osmolality June 17, 2024 4:13pm 255 275-295 [facility] [id number] [address] [facility] [place] [address] Calcium Level June 17, 2024 4:13pm 8.7 mg/dL 8.5-10.1 [facility] [id number] [address] [facility] [place] [address] Aspartate Amino Transf (AST/SGOT) June 17, 2024 4:13pm 21 U/L 15-37 [facility] [id number] [address] [facility] [place] [address] Alanine Aminotransfera se (ALT/SGPT) June 17, 2024 4:13pm 25 U/L 16-61 [facility] [id number] [address] [facility] [place] [address] Alkaline Phosphatase June 17, 2024 4:13pm 156 U/L 45-117 [facility] [id number] [address] [facility] [place] [address] Total Bilirubin June 17, 2024 4:13pm 0.35 mg/dL 0.20-1.00 [facility] [id number] [address] [facility] [place] [address] Total Protein June 17, 2024 4:13pm 6.9 g/dL 6.40-8.20 [facility] [id number] [address] [facility] [place] [address] Albumin June 17, 2024 4:13pm 3.7 g/dL 3.4-5.0 [facility] [id number] [address] [facility] [place] [address] Globulin June 17, 2024 4:13pm 3.2 Ratio 1.3-4.9 [facility] [id number] [address] [facility] [place] [address] Albumin/Globul in Ratio June 17, 2024 4:13pm 1.2 Ratio 1.2-2.3 [facility] [id number] [address] [facility] [place] [address] Microbiology Results Procedure Source Result Collection Date/Time Result Date/Time Result Comment Performing Site Urine Culture Urine,Evelia n Catch Escherichia coli June 17, 2024 3:31pm June 20, 2024 7:36am [facility] [id number] [address] [facility] [place] [address] Urine,Evelia n Catch Strep-alpha hemolytic June 17, 2024 3:31pm June 20, 2024 7:36am [facility] [id number] [address] [facility] [place] [address] Urine Culture Urine,Evelia n Catch June 17, 2024 4:19pm June 18, 2024 8:24am [facility] [id number] [address] [facility] [place] [address] Vital Signs Vital Reading Result Reference Range Collection Date/Time Weight 74.84 kg June 17, 2024 3:48pm Body Temperature 98 [degF] 97.6-99.6 June 17, 2024 3:48pm Heart Rate 64 /min 60-90 June 17, 2024 3:48pm Respiratory rate 18 /min -June 17, 2024 3:48pm Oxygen saturation by Pulse oximetry 95 % 95-100 June 17, 2024 3:48 pm BP Systolic 112 mm[Hg] June 17, 2024 3:48pm BP Diastolic 101 mm[Hg] June 17, 2024 3:48pm Height 65 [in_i] June 20 11:29am Weight 72.57 kg June 20 11:29am Body Temperature 99.2 [degF] 97.6-99.6 June 20, 2024 11:29am Heart Rate 76 /min 60-90 June 20 11:29am Respiratory rate 20 /min -June 20, 2024 11:29am Oxygen saturation by Pulse oximetry 94 % 95-100 June 20, 2024 11: 29am BP Systolic 130 mm[Hg] June 20 11:29am BP Diastolic 70 mm[Hg] June 20 11:29am Advance Directives Advance Directive Response Recorded Date/ Time Do you have Advance Directives? No December 03, 2020 10:26am Insurance Providers Guarantor Jameson Reyes Cam Address [address] [facility] [address] [facility] [address] Contact Info. Home Phone: Payer Policy Id Coverage Id Subscriber's Name Subscriber Id Effective Date Expiration Date [employer] Medicare MCREP [id number] Jameson Levy [id number] Cristhian Gold MCREP [id number] Jameson Levy [id number] Self Pay Self N/A Encounters Encounter Location(s) Arrival/Admit Date Discharge/Depart Date Provider(s) Departed Referred [facility] Drop Off June 17, 2024 3:22pm June 17, 2024 3:23pm Mark Ocampo MD Departed Emergency [facility] June 17, 2024 3:47pm June 17, 2024 5:29pm null Departed Emergency [facility] June 20, 2024 11:29am June 20, 2024 1:27pm null Departed Referred [facility] y July 19, 2024 3:59pm July 19, 2024 4:00pm Nathan Delgado , Plan of Treatment Future Tests Future scheduled test information is unavailable Pending Tests Test Name Ordered Date Scheduled Date Urine Culture July 19, 2024 6:00pm Future Visits Future appointment information is unavailable Referrals to Other Providers Referral information is unavailable Future Procedures Future procedure information is unavailable Future Medications Future medication information is unavailable Patient Instructions Urinary Tract Infection, Filippo lt (DC) Hyponatremia (DC) Urinary Retention (DC) How to Care for Your Goran lucero, Male
--- OUTSIDE RECORDS SUMMARY | 2024-08-02 22:18 | External Medical Summary | Continuity of Care Document ---
Author Name [facility] [address] [facility] [place] [address] Phone [phone] Care Team Providers Care Utilities Service Investigator Name Role Phone Jb Garber DO Care Team Information Retail Manager In Training [phone] Jb Garber DO Primary Care Physician [phone] Problems Active Problems Provider Date Shoulder pain Onset: 1 Otitis media Onset: 0 Hypertensive disorder Onset: History of total knee arthroplasty Onset: 09/11/2018 Postoperative state Onset: 09/11 Social History Type Date Description Comments Sex Unknown Tobacco Use Reviewed: 06/17/24 Never Used Smokeless T obacco ETOH Use 06/22/2022 Denies alcohol use Tobacco Use Reviewed: 06/17/24 Patient has never smok ed Recreational Drug Use 06/22/2022 Denies Drug Use Smoking Status Reviewed: 06/17/24 Patient has never sm oked Allergies and adverse reactions Inactive Allergies Criticality Reaction | Severity Comment s Date No Known Substance Allergies Unable to assess criticality 12/22/2021 Medications Active Medications SIG Qnty Indications Order ing Provider Date Ciprofloxacin [id number] Tablets 1 tab by mouth twice a day for infection 14tabs Mark Ocampo MD 06/17/2024 Tamsulosin HCL0.4mg Capsules 1 by mouth every day at bedtime for prostate 30caps Mark Ocampo MD 06/17/2024 Amlodipine [id number] Tablets 1 by mouth every day 90tabs Jb Garber DO 06/08/[id number] daily 90tabs Unknown 12/22/2020 Magnesium Vuslt563(240Mg) mg Tablets daily 30tabs Unknown 06/30/2020 Vitamin [id number] Tablets daily Unknown 02/24/2020 Immunizations CPT Code Status Date Vaccine Lot # [id number] Given 07/11/2021 Moderna (Covid- 19) vaccine, mRNA, LNP-S, PF, 100 mcg/ 0.5 mL Vital Signs Date Vital Result Comment 06/17/2024 2:45pm Height 63 inches 5'3" Weight 165.12 lb Weight 74.901 kg BMI (Body Mass Index) 29.2 kg/m2 BP Systolic 132 mmHg BP Diastolic 66 mmHg Body Temperature 98.8 F Heart Rate 69 /min Respiratory Rate 20 /min O2 % BldC Oximetry 96 % Pain Level 10 leg cramps 08/15/2023 3:42pm Height 63 inches 5'3" Weight 162.38 lb Weight 73.653 kg BMI (Body Mass Index) 28.8 kg/m2 BP Systolic 140 mmHg BP Diastolic 82 mmHg Body Temperature 97.4 F Heart Rate 91 /min Respiratory Rate 20 /min O2 % BldC Oximetry 92 % Results Test Acquired Date Facility Test Result H/L Range Note Laboratory test finding 06/17/2024 [facility] [address] [facility] [place] [address] [phone] Urine Culture (SEE NOTE) 1 CBC W/ Auto Diff 06/17/2024 [facility] [address] [place] [address] [phone] White Blood Count 7.6 10^3/uL Normal 4.1-10.2 Red Blood Count 3.89 10^6/uL Low 4.20-5.80 Hemoglobin 11.8 g/dL Low 13.0-17.0 Hematocrit 35.4 % Low 38-51 Mean Corpuscular Volume 91.0 fL Normal 82.0-98.0 Mean Corpuscular Hemoglobin 30.3 pg Normal 27.0-34.0 Mean Corpuscular Hgb Conc 33.3 g/dL Normal 31.0-36.0 RDW-SD 43.4 fL Normal 37-49 RDW-CV 13.2 % Normal 11.8-14.8 Platelet Count 300 10^3/uL Normal 150-360 Mean Platelet Volume 8.9 fL Low 9.4-12.4 Neutrophils %(Auto) 72.8 % Normal 42-75 Lymphocytes % (Auto) 15.2 % Normal 14-42 Monocytes % (Auto) 8.5 % Normal 4-13 Eosinophils % (Auto) 3.3 % Normal 0-6 Basophils % (Auto) 0.1 % Normal 0-2 Immature Granulocytes % (Auto) 0.1 % Normal 0.0-0.7 NRBC% (Auto) 0.0 /100WBC Normal 0.0-0.2 Neutrophils # (Auto) 5.5 103uL Normal 1.8-6.6 Lymphocytes # (Auto) 1.2 10^3/uL Normal 1.0-3.1 Monocytes # (Auto) 0.6 103uL Normal 0.0-1.0 Eosinophils # (Auto) 0.3 103uL Normal 0.0-0.5 Basophils # (Auto) 0.0 10^3/uL Normal 0.0-0.1 Immature Granulocytes # (Auto) 0.0 10^3/uL Normal 0.0-0.0 NRBC # (Auto) 0.000 10^3/uL Normal 0.000-0.01 2 Comprehensive Metabolic Panel 06/17/2024 [facility] [place] [address] [facility] [place] [address] [phone] Sodium 124 mmol/L Critical low 136-145 2 Potassium 4.5 mmol/L Normal 3.5-5.1 Chloride 93 mmol/L Low 98-107 Carbon Dioxide 27 mmol/L Normal 21-32 [facility] Anion Gap 4.0 mmol/L Normal 1.0-15 .0 Blood Urea Nitrogen 24 mg/dL High 7-18 Creatinine,Ser um 1.24 mg/dL Normal 0.70-1.30 GFR 55 3 BUN/Creatinine Ratio 19.4 Normal 10.0-20.00 Glucose 112 mg/dL High 70-99 Osmolality,Romario culated 255 Low 275-295 Calcium 8.7 mg/dL Normal 8.5-10.1 Aspartate Aminotrans(Sgo t) 21 U/L Normal 15-37 Alanine Aminotran (SGPT) 25 U/L Normal 16-61 Alkaline Phosphatase 156 U/L High 45-117 Bilirubin,Tota l 0.35 mg/dL Normal 0.20-1.00 Total Protein 6.9 g/dL Normal 6.40-8.20 Albumin 3.7 g/dL Normal 3.4-5.0 Globulin 3.2 Ratio Normal 1.3-4.9 Albumin/Globul in Ratio 1.2 Ratio Normal 1.2-2.3 Urine Microscopic 06/17/[address] [address] Color,Urine Lt Yellow Yellow Clarity,Urine Cloudy Clear PH,Urine 6.0 Normal 6.0-8.0 Specific [place],Urine 1.007 Normal 1.000-1.03 0 Protein,Urine Negative Negative Glucose, Urine (Ua) Negative Negative Ketones,Urine Negative Negative Blood,Urine Negative Negative Nitrate,Urine Positive Negative Bilirubin,Urin e Negative Negative Urobilinogen,U rine 0.2 0.2-1.0 Leukocyte Esterase ,Urine 3+ Negative WBC,Urine 20-30 /HPF 0-3 Add Urine Culture YES 4 Bacteria,Urine 2+ /HPF None Seen Urine Culture 06/17/2024 [facility] [address] [place] [address] O:GNR Gram negative ro <SEE NOTE> 5 Urine Culture [place] Count 6 .Urinalysis 06/17/2024 Office In House Clia Ua Leukocytes Manual Count 3+ Ua Nitrate Positive Urine Urobilin QL Random Trace Ua Protein 6.0 Ua PH Test Strip Trace Ua Blood Qual Trace Urine Specific [place] 1.010 Urine Ketone Auto Test Strip Negative Urine Bilirubin Auto Test STRP Negative Urine Glucose, Dipstick QL Negative 1 Clean Catch See [id number] for work up 2 Results checked Crit ical results called to JINNY IN ER on 06/17/24 at 1649 by YOLANDA. 3 UNITS= mL/min/1.73m squared Unable to flag low results Results less than 60 may warrant further investigation Patients race is not known. If the patient is , multiply the calculated GFR result provided by 1.21. GFR Estimate should not be used to alter drug dosages. 4 Urine culture to fol low. 5 Gram negative rods 6 >100,000 Sensi ID SENSI TO FOLLOW Procedures Date Code Description Status 06/17/2024 3008F Body Mass Index (BMI), Docum ented (pv) Completed 06/17/2024 1125F Amnt Pain Noted; Pain Persis tant Completed Medical Devices Description No Information Available Encounters Description No Information Available Assessments Date Code Description Provider 06/17/2024 I10 Essential hypertension Mark Ocampo MD 06/17/2024 R30.0 Dysuria Mark Ocampo MD 06/17/2024 N40.1 Benign prostatic hyperplasia with lower urinary tract symptoms Mark Ocampo MD 06/17/2024 Z68.29 Body mass index [BMI] 29.0-2 9.9, adult Mark Ocampo MD Plan of Treatment 06/17/2024 - Mark Ocampo MD* I10 Essential hypertension * R30.0 Dysuria * N40.1 Benign prostatic hyperplasia with lower urinary tract symptoms * Z68.29 Body mass index [BMI] 29.0-29.9, adult* New Labs:* CBC W/ Auto Diff, Ordered: 06/17/24 * Comprehensive Metabolic Panel, Ordered: 06/17/24 * Lipid Panel, Ordered: 06/17/24 * PSA Screen, Ordered: 06/17/24 * Thyroid [place], Ordered: 06/17/24 * Comments:* Above Normal BMI, Diet counseling performed. Helpful resource: www.myplate.gov Exercise counseling performed. Helpful resource: www.nutrition.gov/topics/dxlvefyg-baj-wuvtfyf * Follow up:* 1 week * All* New Medication:* Ciprofloxacin HCL 500 mg - 1 tab by mouth twice a day for infection * Tamsulosin HCL 0.4 mg - 1 by mouth every day at bedtime for prostate Functional Status Description No Information Available Mental Status Description No Information Available Referrals Refer to Reason for Referral Status Appt Nathan Hale, DO Hard to Urinate and urine infe ction Sent 07/01/[address] [place] [address] [place] [address]
--- OUTSIDE RECORDS SUMMARY | 2024-08-02 22:18 | External Medical Summary | Continuity of Care Document ---
Author Name Unknown Address [address] [place] [address] [facility] Address [address] [place] [address] Phone Support Name Relationship Address Phone Mark Ocamop Primary Care Provider [address] [place] [address] Jb Garber Emergency Provider [address] [place] [address] Chief Complaint and Reason for Visit Chief Complaint CULTURE polo placement Allergies, Adverse Reactions, Alerts No known allergies Social History Smoking Status Status Start Date End Date Date of Observa tion Never smoked tobacco (finding) June 17, 2024 4:02pm Observation Status Observation Response Date of Response Current Tobacco Use None June 17 4:02pm Additional Data Assigned Sex Male Family History Relationship Condition Age at Onset Recorded Date/T selene Not Specified No pertinent family history Unknown Problems Active Problems Medical Problem Onset Date Status BPH (benign prostatic hyperplasia) Active Status post right knee replacement Active [...] Instructions Omeprazole Active 20 MG PO daily 2020 7:19am Amlodipine Besylate (Norvasc) 5 mg tablet Active 5 MG PO Daily June 08, 2021 3:54pm Amlodipine Besylate (Norvasc) 5 MG tablet Discontin ued 5 MG PO Daily March 29, 2019 12:00am June 30, 2020 2:00pm Amoxicillin Discontin ued 875 MG PO Twice Daily July 12, 2020 12:00am Decemb er 2019 3:24pm Cefuroxime Axetil (Ceftin) 500 MG [...] 5,000 mcg tablet Active 5 MG PO December 17, 2020 1:00am Tramadol Hcl Discontin ued 50 MG PO Every Night December 18, 2020 1:00am Februa ry 2020 1:02am continued therapy Multivitamin Active 1 TAB PO daily Apr2019 12:00am Omeprazole Discontin ued 20 MG PO daily February 24, 2020 12:00am Februa ry 2020 7:19am Ascorbic Acid (Vitamin C) 1,000 [...] Event Date Not Given Reason Dose Number [employer] As[employer]er Lot Number Vaccine Information Statement (VIS) Detail SARS-COV-2 (COVID-19) MODERNA July 11, 2021 [id number] Relevant Diagnostic Tests and/or Laboratory Data Laboratory Results Test Date/Time Result Interpretation Reference Range Result Comment Performing Site White Blood Count June 17, 2024 4:13pm 7.6 10^3/uL 4.1-10.2 [facility] [id number] [address] [place] [address] Red Blood Count June 17, 2024 4:13pm 3.89 10^6/uL 4.20-5.80 [facility] [id number] [address] [place] [address] Hemoglobin June 17, 2024 4:13pm 11.8 g/dL 13.0-17.0 [facility] [id number] [address] [place] [address] Hematocrit June 17, 2024 4:13pm 35.4 % 38-51 [facility] [id number] [address] [place] [address] Mean Corpuscular Volume June 17, 2024 4:13pm 91.0 fL 82.0-98.0 [facility] [id number] [address] [place] [address] Mean Corpuscular Hemoglobin June 17, 2024 4:13pm 30.3 pg 27.0-34.0 [facility] [id number] [address] [place] [address] Mean Corpuscular Hemoglobin Concent June 17, 2024 4:13pm 33.3 g/dL 31.0-36.0 [facility] [id number] [address] [place] [address] RDW Standard Deviation June 17, 2024 4:13pm 43.4 fL 37-49 [facility] [id number] [address] [facility] [place] [address] RDW Coefficient of Variation June 17, 2024 4:13pm 13.2 % 11.8-14.8 [facility] [id number] [address] [place] [address] Platelet Count June 17, 2024 4:13pm 300 10^3/uL 150-360 [facility] [id number] [address] [place] [address] Mean Platelet Volume June 17, 2024 4:13pm 8.9 fL 9.4-12.4 [facility] [id number] [address] [place] [address] Neutrophils (%) (Auto) June 17, 2024 4:13pm 72.8 % 42-75 [facility] [id number] [address] [facility] [place] [address] Lymphocytes (%) (Auto) June 17, 2024 4:13pm 15.2 % 14-42 [facility] [id number] [address] [facility] [place] [address] Monocytes (%) (Auto) June 17, 2024 4:13pm 8.5 % 4-13 [facility] [id number] [address] [facility] [place] [address] Eosinophils (%) (Auto) June 17, 2024 4:13pm 3.3 % 0-6 [facility] [id number] [address] [facility] [place] [address] Basophils (%) (Auto) June 17, 2024 4:13pm 0.1 % 0-2 [facility] [id number] [address] [place] [address] Immature Granulocytes % June 17, 2024 4:13pm 0.1 % 0.0-0.7 [facility] [id number] [address] [facility] [place] [address] Neutrophils # (Auto) June 17, 2024 4:13pm 5.5 10^3uL 1.8-6.6 [facility] [id number] [address] [facility] [place] [address] Lymphocytes # (Auto) June 17, 2024 4:13pm 1.2 10^3/uL 1.0-3.1 [facility] [id number] [address] [facility] [place] [address] Monocytes # (Auto) June 17, 2024 4:13pm 0.6 10^3uL 0.0-1.0 [facility] [id number] [address] [facility] [place] [address] Eosinophils # (Auto) June 17, 2024 4:13pm 0.3 10^3uL 0.0-0.5 [facility] [id number] [address] [facility] [place] [address] Basophils # (Auto) June 17, 2024 4:13pm 0.0 10^3/uL 0.0-0.1 [facility] [id number] [address] [place] [address] Urine Color June 17, 2024 4:05pm Lt yellow Yellow [facility] [id number] [address] [place] [address] Urine Clarity June 17, 2024 4:05pm Cloudy Clear [facility] [id number] [address] [place] [address] Urine pH June 17, 2024 4:05pm 6.0 6.0-8.0 [facility] [id number] [address] [place] [address] Urine Specific [place] June 17, 2024 4:05pm 1.007 1.000-1.03 0 [facility] [id number] [address] [place] [address] Urine Protein June 17, 2024 4:05pm Negative Negative [facility] [id number] [address] [place] [address] Urine Glucose (UA) June 17, 2024 4:05pm Negative Negative [facility] [id number] [address] [place] [address] Urine Ketones June 17, 2024 4:05pm Negative Negative [facility] [id number] [address] [place] [address] Urine Occult Blood June 17, 2024 4:05pm Negative Negative [facility] [id number] [address] [place] [address] Urine Nitrate June 17, 2024 4:05pm Positive Negative [facility] [id number] [address] [place] [address] Urine Bilirubin June 17, 2024 4:05pm Negative Negative [facility] [id number] [address] [place] [address] Urine Urobilinogen June 17, 2024 4:05pm 0.2 0.2-1.0 [facility] [id number] [address] [place] [address] Urine Leukocyte Esterase June 17, 2024 4:05pm 3+ Negative [facility] [id number] [address] [facility] [place] [address] Urine WBC June 17, 2024 4:05pm 20-30 /HPF 0-3 [facility] [id number] [address] [facility] [place] [address] Urine Culture Indicated June 17, 2024 4:05pm Yes Urine culture to follow. [facility] [id number] [address] [facility] [place] [address] Urine Bacteria June 17, 2024 4:05pm 2+ /HPF NONE SEEN [facility] [id number] [address] [facility] [place] [address] Sodium Level June 17, 2024 4:13pm 124 mmol/L 136-145 Results checked & Critical results called to JINNY IN ER on 06/17/24 at 1649 by YOLANDA. [facility] [id number] [address] [facility] [place] [address] Potassium Level June 17, 2024 4:13pm 4.5 mmol/L 3.5-5.1 [facility] [id number] [address] [facility] [place] [address] Chloride Level June 17, 2024 4:13pm 93 mmol/L 98-107 [facility] [id number] [address] [facility] [place] [address] Carbon Dioxide Level June 17, 2024 4:13pm 27 mmol/L 21-32 [facility] [id number] [address] [facility] [place] [address] Anion Gap June 17, 2024 4:13pm 4.0 MMOL/L 1.0-15.0 [facility] [id number] [address] [facility] [place] [address] Blood Urea Nitrogen June 17, 2024 4:13pm 24 mg/dL 7-18 [facility] [id number] [address] [facility] [place] [address] Creatinine June 17, 2024 4:13pm 1.24 mg/dL 0.70-1.30 [facility] [id number] [address] [place] [address] Estimated GFR (MDRD) June 17, 2024 4:13pm 55 UNITS= mL/min/1.73m squared Unable to flag low results Results less than 60 may warrant further investigationPat ients race is not known. If the patient is , multiply the calculated GFR result provided by 1.21. GFR Estimate should not be used to alter drug dosages. [facility] [id number] [address] [facility] [place] [address] BUN/Creatinine Ratio June 17, 2024 4:13pm 19.4 10.0-20.00 [facility] [id number] [address] [facility] [place] [address] Glucose Level June 17, 2024 4:13pm 112 mg/dL 70-99 [facility] [id number] [address] [facility] [place] [address] Calculated Osmolality June 17, 2024 4:13pm 255 275-295 [facility] [id number] [address] [facility] [place] [address] Calcium Level June 17, 2024 4:13pm 8.7 mg/dL 8.5-10.1 [facility] [id number] [address] [place] [address] Aspartate Amino Transf (AST/SGOT) June 17, 2024 4:13pm 21 U/L 15-37 [facility] [id number] [address] [facility] [place] [address] Alanine Aminotransfera se (ALT/SGPT) June 17, 2024 4:13pm 25 U/L 16-61 [facility] [id number] [address] [facility] [place] [address] Alkaline Phosphatase June 17, 2024 4:13pm 156 U/L 45-117 [facility] [id number] [address] [place] [address] [place] [address] Total Bilirubin June 17, 2024 4:13pm 0.35 mg/dL 0.20-1.00 [facility] [id number] [address] [facility] [place] [address] Total Protein June 17, 2024 4:13pm 6.9 g/dL 6.40-8.20 [facility] [id number] [address] [facility] [place] [address] Albumin June 17, 2024 4:13pm 3.7 g/dL 3.4-5.0 [facility] [id number] [address] [facility] [place] [address] Globulin June 17, 2024 4:13pm 3.2 Ratio 1.3-4.9 [facility] [id number] [address] [facility] [place] [address] Albumin/Globul in Ratio June 17, 2024 4:13pm 1.2 Ratio 1.2-2.3 [facility] [id number] [address] [facility] [place] [address] Vital Signs Vital Reading Result Reference Range Collection Date/Time Weight 74.84 kg June 17, 2024 3:48pm Body Temperature 98 [degF] 97.6-99.6 June 17, 2024 3:48pm Heart Rate 64 /min 60-90 June 17, 2024 3:48pm Respiratory rate 18 /min 12-24 June 17, 2024 3:48pm Oxygen saturation by Pulse oximetry 95 % 95-10 0 June 17, 2024 3:48pm BP Systolic 112 mm[Hg] June 17, 2024 3:48pm BP Diastolic 101 mm[Hg] June 17, 2024 3:48pm Advance Directives Advance Directive Response Recorded Date/ Time Do you have Advance Directives? No December 03, 2020 10:26am Insurance Providers Guarantor Jameson Levy Address [address] [place] [address] Contact Info. Home Phone: Payer Policy Id Coverage Id Subscriber's Name Subscriber Id Effective Date Expiration Date [employer] Medicare [facility] [id number] Jameson Levy [id number] [facility] Gold MCREP [id number] Jameson Levy [id number] Self Pay Self N/A Encounters Encounter Location(s) Arrival/Admit Date Discharge/Depart Date Provider(s) Departed Referred [facility]-Lab Drop Off June 17, 2024 3:22pm June 17, 2024 3:23pm Mark Ocampo MD Departed Emergency [facility]-Emergency Room June 17, 2024 3:47pm June 17, 2024 5:29pm null Plan of Treatment Future Tests Future scheduled test information is unavailable Pending Tests Test Name Ordered Date Scheduled Date Urine Culture June 17, 2024 3:31pm Urine Culture June 17, 2024 4:19pm Future Visits Future appointment information is unavailable Referrals to Other Providers Referral information is unavailable Future Procedures Future procedure information is unavailable Future Medications Future medication information is unavailable Patient Instructions Urinary Tract Infection, Filippo lt (DC) Hyponatremia (DC) Urinary Retention (DC)
--- OUTSIDE RECORDS SUMMARY | 2024-08-02 22:18 | External Medical Summary | Continuity of Care Document ---
Author Name Unknown Address [address] [place] [address] Phone Organization [facility] Address [address] [place] [address] Phone Support Name Relationship Address Phone Mark Ocampo Primary Care Provider [address] [place] [address] Jb Garber Emergency Provider [address] [place] [address] Chief Complaint and Reason for Visit Chief [...] Event Date Not Given Reason Dose Number [employer] Lot Number Vaccine Information Statement (VIS) Detail SARS-COV-2 (COVID-19) MODERNA July 11, 2021 [id number] Relevant Diagnostic Tests and/or Laboratory Data Laboratory Results Test Date/Time Result Interpretation Reference Range Result Comment Performing Site White Blood Count June 17, 2024 4:13pm 7.6 10^3/uL 4.1-10.2 [facility] [id number] [address] [place] [address] Red Blood Count June 17, 2024 4:13pm 3.89 10^6/uL 4.20-5.80 [facility] [id number] [address] [place] [address] Hemoglobin June 17, 2024 4:13pm 11.8 g/dL 13.0-17.0 [facility] [id number] [address] [place] [address] Hematocrit June 17, 2024 4:13pm 35.4 % 38-51 [facility] [id number] [address] [place] [address] Mean Corpuscular Volume June 17, 2024 4:13pm 91.0 fL 82.0-98.0 [facility] [id number] [address] [place] [address] Mean Corpuscular Hemoglobin June 17, 2024 4:13pm 30.3 pg 27.0-34.0 [facility] [id number] [address] [place] [address] Mean Corpuscular Hemoglobin Concent June 17, 2024 4:13pm 33.3 g/dL 31.0-36.0 [facility] [id number] [address] [place] [address] RDW Standard Deviation June 17, 2024 4:13pm 43.4 fL 37-49 [facility] [id number] [address] [facility] [place] [address] RDW Coefficient of Variation June 17, 2024 4:13pm 13.2 % 11.8-14.8 [facility] [id number] [address] [place] [address] Platelet Count June 17, 2024 4:13pm 300 10^3/uL 150-360 [facility] [id number] [address] [place] [address] Mean Platelet Volume June 17, 2024 4:13pm 8.9 fL 9.4-12.4 [facility] [id number] [address] [place] [address] Neutrophils (%) (Auto) June 17, 2024 4:13pm 72.8 % 42-75 [facility] [id number] [address] [facility] [place] [address] Lymphocytes (%) (Auto) June 17, 2024 4:13pm 15.2 % 14-42 [facility] [id number] [address] [facility] [place] [address] Monocytes (%) (Auto) June 17, 2024 4:13pm 8.5 % 4-13 [facility] [id number] [address] [facility] [place] [address] Eosinophils (%) (Auto) June 17, 2024 4:13pm 3.3 % 0-6 [facility] [id number] [address] [facility] [place] [address] Basophils (%) (Auto) June 17, 2024 4:13pm 0.1 % 0-2 [facility] [id number] [address] [place] [address] Immature Granulocytes % June 17, 2024 4:13pm 0.1 % 0.0-0.7 [facility] [id number] [address] [facility] [place] [address] Neutrophils # (Auto) June 17, 2024 4:13pm 5.5 10^3uL 1.8-6.6 [facility] [id number] [address] [facility] [place] [address] Lymphocytes # (Auto) June 17, 2024 4:13pm 1.2 10^3/uL 1.0-3.1 [facility] [id number] [address] [facility] [place] [address] Monocytes # (Auto) June 17, 2024 4:13pm 0.6 10^3uL 0.0-1.0 [facility] [id number] [address] [facility] [place] [address] Eosinophils # (Auto) June 17, 2024 4:13pm 0.3 10^3uL 0.0-0.5 [facility] [id number] [address] [facility] [facility] [place] [address] Basophils # (Auto) June 17, 2024 4:13pm 0.0 10^3/uL 0.0-0.1 [facility] [id number] [address] [place] [address] Urine Color June 17, 2024 4:05pm Lt yellow Yellow [facility] [id number] [address] [place] [address] Urine Clarity June 17, 2024 4:05pm Cloudy Clear [facility] [id number] [address] [place] [address] Urine pH June 17, 2024 4:05pm 6.0 6.0-8.0 [facility] [id number] [address] [place] [address] Urine Specific [place] June 17, 2024 4:05pm 1.007 1.000-1.03 0 [facility] [id number] [address] [place] [address] Urine Protein June 17, 2024 4:05pm Negative Negative [facility] [id number] [address] [place] [address] Urine Glucose (UA) June 17, 2024 4:05pm Negative Negative [facility] [id number] [address] [place] [address] Urine Ketones June 17, 2024 4:05pm Negative Negative [facility] [id number] [address] [place] [address] Urine Occult Blood June 17, 2024 4:05pm Negative Negative [facility] [id number] [address] [place] [address] Urine Nitrate June 17, 2024 4:05pm Positive Negative [facility] [id number] [address] [place] [address] Urine Bilirubin June 17, 2024 4:05pm Negative Negative [facility] [id number] [address] [place] [address] Urine Urobilinogen June 17, 2024 4:05pm 0.2 0.2-1.0 [facility] [id number] [address] [place] [address] Urine Leukocyte Esterase June 17, 2024 4:05pm 3+ Negative [facility] [id number] [address] [facility] [place] [address] Urine WBC June 17, 2024 4:05pm 20-30 /HPF 0-3 [facility] [id number] [address] [facility] [place] [address] Urine Culture Indicated June 17, 2024 4:05pm Yes Urine culture to follow. [facility] [id number] [address] [facility] [place] [address] Urine Bacteria June 17, 2024 4:05pm 2+ /HPF NONE SEEN [facility] [id number] [address] [facility] [place] [address] Sodium Level June 17, 2024 4:13pm 124 mmol/L 136-145 Results checked & Critical results called to JINNY IN ER on 06/17/24 at 1649 by YOLANDA. [facility] [id number] [address] [facility] [place] [address] Potassium Level June 17, 2024 4:13pm 4.5 mmol/L 3.5-5.1 [facility] [id number] [address] [facility] [place] [address] Chloride Level June 17, 2024 4:13pm 93 mmol/L 98-107 [facility] [id number] [address] [facility] [place] [address] Carbon Dioxide Level June 17, 2024 4:13pm 27 mmol/L 21-32 [facility] [id number] [address] [facility] [place] [address] Anion Gap June 17, 2024 4:13pm 4.0 MMOL/L 1.0-15.0 [facility] [id number] [address] [facility] [place] [address] Blood Urea Nitrogen June 17, 2024 4:13pm 24 mg/dL 7-18 [facility] [id number] [address] [facility] [place] [address] Creatinine June 17, 2024 4:13pm 1.24 mg/dL 0.70-1.30 [facility] [id number] [address] [facility] [place] [address] Estimated GFR (MDRD) June 17, 2024 4:13pm 55 UNITS= mL/min/1.73m squared Unable to flag low results Results less than 60 may warrant further investigationPat ients race is not known. If the patient is , multiply the calculated GFR result provided by 1.21. GFR Estimate should not be used to alter drug dosages. [facility] [id number] [address] [facility] [place] [address] BUN/Creatinine Ratio June 17, 2024 4:13pm 19.4 10.0-20.00 [facility] [id number] [address] [facility] [place] [address] Glucose Level June 17, 2024 4:13pm 112 mg/dL 70-99 [facility] [id number] [address] [facility] [place] [address] Calculated Osmolality June 17, 2024 4:13pm 255 275-295 [facility] [id number] [address] [facility] [place] [address] Calcium Level June 17, 2024 4:13pm 8.7 mg/dL 8.5-10.1 [facility] [id number] [address] [facility] [place] [address] Aspartate Amino Transf (AST/SGOT) June 17, 2024 4:13pm 21 U/L 15-37 [facility] [id number] [address] [facility] [place] [address] Alanine Aminotransfera se (ALT/SGPT) June 17, 2024 4:13pm 25 U/L 16-61 [facility] [id number] [address] [facility] [place] [address] Alkaline Phosphatase June 17, 2024 4:13pm 156 U/L 45-117 [facility] [id number] [address] [place] [address] [place] [address] Total Bilirubin June 17, 2024 4:13pm 0.35 mg/dL 0.20-1.00 [facility] [id number] [address] [facility] [place] [address] Total Protein June 17, 2024 4:13pm 6.9 g/dL 6.40-8.20 [facility] [id number] [address] [facility] [place] [address] Albumin June 17, 2024 4:13pm 3.7 g/dL 3.4-5.0 [facility] [id number] [address] [facility] [place] [address] Globulin June 17, 2024 4:13pm 3.2 Ratio 1.3-4.9 [facility] [id number] [address] [facility] [place] [address] Albumin/Globul in Ratio June 17, 2024 4:13pm 1.2 Ratio 1.2-2.3 [facility] [id number] [address] [facility] [place] [address] Vital Signs Vital Reading Result Reference Range [...] 10:26am Insurance Providers Guarantor Jameson Levy Address [address] [place] [id number] Contact Info. Home Phone: Payer Policy Id Coverage Id Subscriber's Name Subscriber Id Effective Date Expiration Date [employer] [facility] [id number] Jameson Levy [id number] [facility] Gold MCREP [id number] Jameson Levy [id number] Self Pay Self N/A Encounters Encounter Location(s) Arrival/Admit Date Discharge/Depart Date Provider(s) Departed Referred [facility] Drop Off June 17, 2024 3:22pm June 17, 2024 3:23pm Mark Ocampo MD Departed Emergency [facility]Emergency Room June 17, 2024 3:47pm June [...]
--- OUTSIDE RECORDS SUMMARY | 2024-08-02 22:18 | External Medical Summary | Continuity of Care Document ---
Author Name Unknown Address [address] [place] [address] Phone [facility] Address [address] [place] [address] Phone Support Name Relationship Address Phone Mark Ocampo Primary Care Provider [address] [place] [address] Jb Garber Emergency Provider [address] [place] [address] Tripp Rice Emergency Provider [address] [place] [address] Chief Complaint and Reason for Visit Chief Complaint CULTURE polo placement urinary catheter problem Allergies, Adverse Reactions, Alerts No known allergies [...] Instructions Omeprazole Active 20 MG PO daily 90 2020 7:19am Amlodipine Besylate (Norvasc) 5 mg tablet Active 5 MG PO Daily June 08, 2021 3:54pm Amlodipine Besylate (Norvasc) 5 MG tablet Discontin ued 5 MG PO Daily March 29, 2019 12:00am June 30, 2020 2:00pm Amoxicillin Discontin ued 875 MG PO Twice Daily July 12, 2020 12:00am [facility] 2019 3:24pm Cefuroxime Axetil (Ceftin) 500 MG [...] therapy Multivitamin Active 1 TAB PO daily 2019 12:00am Omeprazole Discontin ued 20 MG [...] Event Date Not Given Reason Dose Number [employer] Lot Number Vaccine Information Statement (VIS) Detail SARS-COV-2 (COVID-19) MODERNYadi July 11, 2021 [id number] Procedures Procedure Date Performed Status Urine Culture June 17, 2024 completed Urine Culture June 17, 2024 completed Relevant Diagnostic Tests and/or Laboratory Data Laboratory Results Test Date/Time Result Interpretation Reference Range Result Comment Performing Site White Blood Count June 17, 2024 4:13pm 7.6 10^3/uL 4.1-10.2 [facility] [id number] [address] [place] [address] Red Blood Count June 17, 2024 4:13pm 3.89 10^6/uL 4.20-5.80 [facility] [id number] [address] [place] [address] Hemoglobin June 17, 2024 4:13pm 11.8 g/dL 13.0-17.0 [facility] [id number] [address] [facility] [place] [address] Hematocrit June 17, 2024 4:13pm 35.4 % 38-51 [facility] [id number] [address] [facility] [place] [address] Mean Corpuscular Volume June 17, 2024 4:13pm 91.0 fL 82.0-98.0 [facility] [id number] [address] [facility] [place] [address] Mean Corpuscular Hemoglobin June 17, 2024 4:13pm 30.3 pg 27.0-34.0 [facility] [id number] [address] [facility] [place] [address] Mean Corpuscular Hemoglobin Concent June 17, 2024 4:13pm 33.3 g/dL 31.0-36.0 [facility] [id number] [address] [facility] [place] [address] RDW Standard Deviation June 17, 2024 4:13pm 43.4 fL 37-49 [facility] [id number] [address] [facility] [place] [address] RDW Coefficient of Variation June 17, 2024 4:13pm 13.2 % 11.8-14.8 [facility] [id number] [address] [facility] [place] [address] Platelet Count June 17, 2024 4:13pm 300 10^3/uL 150-360 [facility] [id number] [address] [facility] [place] [address] Mean Platelet Volume June 17, 2024 4:13pm 8.9 fL 9.4-12.4 [facility] [id number] [address] [place] [address] Neutrophils (%) (Auto) June 17, 2024 4:13pm 72.8 % 42-75 [facility] [id number] [address] [facility] [place] [address] Lymphocytes (%) (Auto) June 17, 2024 4:13pm 15.2 % 14-42 [facility] [id number] [address] [facility] [place] [address] Monocytes (%) (Auto) June 17, 2024 4:13pm 8.5 % 4-13 [facility] [id number] [address] [facility] [place] [address] Eosinophils (%) (Auto) June 17, 2024 4:13pm 3.3 % 0-6 [facility] [id number] [address] [facility] [place] [address] Basophils (%) (Auto) June 17, 2024 4:13pm 0.1 % 0-2 [facility] [id number] [address] [facility] [place] [address] Immature Granulocytes % June 17, 2024 4:13pm 0.1 % 0.0-0.7 [place] [id number] [address] [facility] [place] [address] Neutrophils # (Auto) June 17, 2024 4:13pm 5.5 10^3uL 1.8-6.6 [facility] [id number] [address] [facility] [place] [address] Lymphocytes # (Auto) June 17, 2024 4:13pm 1.2 10^3/uL 1.0-3.1 [facility] [id number] [address] [facility] [place] [address] Monocytes # (Auto) June 17, 2024 4:13pm 0.6 10^3uL 0.0-1.0 [facility] [id number] [address] [place] [address] Eosinophils # (Auto) June 17, 2024 4:13pm 0.3 10^3uL 0.0-0.5 [facility] [id number] [address] [place] [address] Basophils # (Auto) June 17, 2024 4:13pm 0.0 10^3/uL 0.0-0.1 [facility] [id number] [address] [place] [address] Urine Color June 17, 2024 4:05pm Lt yellow Yellow [facility] [id number] [address] [place] [address] Urine Clarity June 17, 2024 4:05pm Cloudy Clear [facility] [id number] [address] [place] [address] Urine pH June 17, 2024 4:05pm 6.0 6.0-8.0 [facility] [id number] [address] [place] [address] Urine Specific [place] June 17, 2024 4:05pm 1.007 1.000-1.03 0 [facility] [id number] [address] [place] [address] Urine Protein June 17, 2024 4:05pm Negative Negative [facility] [id number] [address] [place] [address] Urine Glucose (UA) June 17, 2024 4:05pm Negative Negative [facility] [id number] [address] [place] [address] Urine Ketones June 17, 2024 4:05pm Negative Negative [facility] [id number] [address] [place] [address] Urine Occult Blood June 17, 2024 4:05pm Negative Negative [facility] [id number] [address] [place] [address] Urine Nitrate June 17, 2024 4:05pm Positive Negative [facility] [id number] [address] [place] [address] Urine Bilirubin June 17, 2024 4:05pm Negative Negative [facility] [id number] [address] [place] [address] Urine Urobilinogen June 17, 2024 4:05pm 0.2 0.2-1.0 [facility] [id number] [address] [place] [address] Urine Leukocyte Esterase June 17, 2024 4:05pm 3+ Negative [facility] [id number] [address] [place] [address] Urine WBC June 17, 2024 4:05pm 20-30 /HPF 0-3 [facility] [id number] [address] [place] [address] Urine Culture Indicated June 17, 2024 4:05pm Yes Urine culture to follow. [facility] [id number] [address] [place] [address] Urine Bacteria June 17, 2024 4:05pm 2+ /HPF NONE SEEN [facility] [id number] [address] [facility] [place] [address] Sodium Level June 17, 2024 4:13pm 124 mmol/L 136-145 Results checked & Critical results called to JINNY IN ER on 06/17/24 at 1649 by YOLANDA. [facility] [id number] [address] [facility] [place] [address] Potassium Level June 17, 2024 4:13pm 4.5 mmol/L 3.5-5.1 [facility] [id number] [address] [facility] [place] [address] Chloride Level June 17, 2024 4:13pm 93 mmol/L 98-107 [facility] [id number] [address] [facility] [place] [address] Carbon Dioxide Level June 17, 2024 4:13pm 27 mmol/L 21-32 [facility] [id number] [address] [place] [address] Anion Gap June 17, 2024 4:13pm 4.0 MMOL/L 1.0-15.0 [facility] [id number] [address] [facility] [place] [address] Blood Urea Nitrogen June 17, 2024 4:13pm 24 mg/dL 7-18 [facility] [id number] [address] [facility] [place] [address] Creatinine June 17, 2024 4:13pm 1.24 mg/dL 0.70-1.30 [facility] [id number] [address] [place] [address] Estimated GFR (MDRD) June 17, 2024 4:13pm 55 UNITS= mL/min/1.73m squared Unable to flag low results Results less than 60 may warrant further investigationPat ients race is not known. If the patient is , multiply the calculated GFR result provided by 1.21. GFR Estimate should not be used to alter drug dosages. [facility] [id number] [address] [place] [address] BUN/Creatinine Ratio June 17, 2024 4:13pm 19.4 10.0-20.00 [facility] [id number] [address] [facility] [place] [address] Glucose Level June 17, 2024 4:13pm 112 mg/dL 70-99 [facility] [id number] [address] [facility] [place] [address] Calculated Osmolality June 17, 2024 4:13pm 255 275-295 [facility] [id number] [address] [facility] [place] [address] Calcium Level June 17, 2024 4:13pm 8.7 mg/dL 8.5-10.1 [facility] [id number] [address] [facility] [place] [address] Aspartate Amino Transf (AST/SGOT) June 17, 2024 4:13pm 21 U/L 15-37 [facility] [id number] [address] [facility] [place] [address] Alanine Aminotransfera se (ALT/SGPT) June 17, 2024 4:13pm 25 U/L 16-61 [facility] [id number] [address] [place] [address] Alkaline Phosphatase June 17, 2024 4:13pm 156 U/L 45-117 [facility] [id number] [address] [facility] [place] [address] Total Bilirubin June 17, 2024 4:13pm 0.35 mg/dL 0.20-1.00 [facility] [id number] [address] [facility] [place] [address] Total Protein June 17, 2024 4:13pm 6.9 g/dL 6.40-8.20 [facility] [id number] [address] [facility] [place] [address] Albumin June 17, 2024 4:13pm 3.7 g/dL 3.4-5.0 [facility] [id number] [address] [facility] [place] [address] Globulin June 17, 2024 4:13pm 3.2 Ratio 1.3-4.9 [facility] [id number] [address] [facility] [place] [address] Albumin/Globul in Ratio June 17, 2024 4:13pm 1.2 Ratio 1.2-2.3 [facility] [id number] [address] [facility] [place] [address] Microbiology Results Procedure Source Result Collection Date/Time Result Date/Time Result Comment Performing Site Urine Culture Urine,Evelia n Catch Escherichia coli June 17, 2024 3:31pm June 20, 2024 7:36am [facility] [id number] [address] [facility] [place] [address] Urine,Evelia n Catch Strep-alpha hemolytic June 17, 2024 3:31pm June 20, 2024 7:36am [facility] [id number] [address] [facility] [place] [address] Urine Culture Urine,Evelia n Catch June 17, 2024 4:19pm June 18, 2024 8:24am [facility] [id number] [address] [facility] [place] [address] Vital Signs Vital Reading Result Reference Range [...] 10:26am Insurance Providers Guarantor Jameson Levy Address [address] [place] [address] Contact Info. Home Phone: Payer Policy Id Coverage Id Subscriber's Name Subscriber Id Effective Date Expiration Date [employer] Medicare MCREP [id number] Jameson Levy [id number] [facility] [id number] Jameson Levy [id number] Self Pay Self N/A Encounters Encounter Location(s) Arrival/Admit Date Discharge/Depart Date Provider(s) Departed Referred [facility] Drop Off June 17, 2024 3:22pm June 17, 2024 3:23pm Mark Ocampo MD Departed Emergency [facility]-Emergency Room June 17, 2024 3:47pm June 17, 2024 5:29pm null Departed Emergency [facility]Emergency Room June 20, 2024 11:29am June 20, 2024 1:27pm null Plan of Treatment Future Tests Future scheduled test information is unavailable Pending Tests Pending diagnostic test information is unavailable Future Visits Future appointment information is unavailable Referrals to Other Providers Referral information is unavailable Future Procedures Future procedure information is unavailable Future Medications Future medication information is unavailable Patient Instructions Urinary Tract Infection, Filippo lt (DC) Hyponatremia (DC) Urinary Retention (DC) How to Care for Your [facility] Discharge Instructions Additional Instructions Please make sure you stay hydrated, increase your water intake. Take your antibiotic as prescribed. Call Dr. Russell to make an appointment to be seen. If any worsening symptoms or concerns call him or return to the ER for reevaluation
--- OUTSIDE RECORDS SUMMARY | 2024-08-02 22:18 | External Medical Summary | Continuity of Care Document ---
Author Name Unknown Organization [facility] Address [address] [place] [address] Phone [phone] Care Team Providers Care Allocations Clerk Name Role Phone Jb Garber DO Care Team Information Anesthesiology Faculty [phone] Jb Garber DO Primary Care Physician Problems Active Problems Provider Date Shoulder pain [...] Qnty Indications Order ing Provider Date Ciprofloxacin [id number] Tablets 1 tab by mouth twice a day for infection 14tabs Mark Ocampo MD 06/17/2024 Tamsulosin HCL0.4mg Capsules 1 by mouth every day at bedtime for prostate 30caps Mark Ocampo MD 06/17/2024 Amlodipine Zkxsrtti7jh Tablets 1 by mouth every day 90tabs Jb Garber DO 06/08/[address] daily 90tabs Unknown 12/22/2020 Magnesium Aswtk761(240Mg) mg Tablets daily 30tabs Unknown 06/30/2020 Vitamin T4140vk Tablets daily Unknown 02/24/2020 Immunizations CPT Code Status Date Vaccine Lot # [id number] Given 07/11/2021 Moderna (Covid- 19) vaccine, mRNA, [...] Date Facility Test Result H/L Range Note CBC W/ Auto Diff 06/17/2024 [facility] [address] White Blood Count 7.6 10^3/uL Normal 4.1-10.2 [...] Normal 0.000-0.01 2 Comprehensive Metabolic Panel 06/17/[address] [address] [phone] Sodium 124 mmol/L Critical low 136-145 1 Potassium 4.5 mmol/L Normal 3.5-5.1 Chloride 93 mmol/L Low 98-107 Carbon Dioxide 27 mmol/L Normal 21-32 [facility] Anion Gap 4.0 mmol/L Normal 1.0-15 .0 Blood Urea Nitrogen 24 mg/dL High 7-18 Creatinine,Ser um 1.24 mg/dL Normal 0.70-1.30 GFR 55 2 BUN/Creatinine Ratio 19.4 Normal 10.0-20.00 Glucose 112 [...] 1.2 Ratio Normal 1.2-2.3 Urine Microscopic 06/17/2024 [facility] [address] [place] [address] [phone] Color,Urine Lt Yellow Yellow Clarity,Urine Cloudy Clear PH,Urine 6.0 Normal 6.0-8.0 Specific [place],Urine 1.007 Normal 1.000-1.03 0 Protein,Urine Negative Negative Glucose, Urine (Ua) Negative Negative Ketones,Urine Negative Negative Blood,Urine Negative Negative Nitrate,Urine Positive Negative Bilirubin,Urin e Negative Negative Urobilinogen,U rine 0.2 0.2-1.0 Leukocyte Esterase ,Urine 3+ Negative WBC,Urine 20-30 /HPF 0-3 Add Urine Culture YES 3 Bacteria,Urine 2+ /HPF None Seen .Urinalysis 06/17/2024 Office In House Clia Ua Leukocytes Manual Count 3+ Ua Nitrate Positive Urine Urobilin QL Random Trace Ua Protein 6.0 Ua PH Test Strip Trace Ua Blood Qual Trace Urine Specific [place] 1.010 Urine Ketone Auto Test Strip Negative Urine Bilirubin Auto Test STRP Negative Urine Glucose, Dipstick QL Negative 1 Results checked Crit ical results called to JINNY IN ER on 06/17/24 at 1649 by YOLANDA. 2 UNITS= mL/min/1.73m squared Unable to flag low results Results less than 60 may warrant further investigation Patients race is not known. If the patient is , multiply the calculated GFR result provided by 1.21. GFR Estimate should not be used to alter drug dosages. 3 Urine culture to fol low. Procedures Date Code Description Status 06/17/2024 3008F [...] Ocampo MD* I10 Essential hypertension * R30.0 Dysuria* New Labs:* Urine Culture, Ordered: 06/17/24 * N40.1 Benign prostatic hyperplasia with lower urinary tract symptoms * Z68.29 Body mass index [BMI] 29.0-29.9, adult* New Labs:* CBC W/ Auto Diff, Ordered: 06/17/24 * Comprehensive Metabolic Panel, Ordered: 06/17/24 * Lipid Panel, Ordered: 06/17/24 * PSA Screen, Ordered: 06/17/24 * Thyroid [place], Ordered: 06/17/24 * Comments:* Above Normal BMI, Diet counseling performed. Helpful resource: www.myplate.gov Exercise counseling performed. Helpful resource: www.nutrition.gov/topics/jkvemijr-vem-zyeeqeo * Follow up:* 1 week * All* [...] Urinate and urine infe ction Sent 07/01/[address] [place] [address] [place] [address]
--- OUTSIDE RECORDS SUMMARY | 2024-08-02 22:18 | External Medical Summary | Continuity of Care Document ---
Author Name Unknown Organization [facility] ce Address [address] [place] [address] Phone [phone] Care Team Providers Care Chart Calculator Name Role Phone Jb Garber DO Care Team Information Education Research Analyst [phone] Jb Garber DO Primary Care Physician [phone] Problems Active Problems Provider Date Shoulder pain [...] 12/22/2021 Medications Active Medications SIG Qnty Indications Ordering Provider Date Tamsulosin HCL0.4mg Capsules 1 by mouth every day at bedtime for prostate 30bogdan Ocampo MD 06/17/2024 Amlodipine Fqkurhft8gu Tablets 1 by mouth every day 90tabs Jb Garber DO 06/08/[address] daily 90tabs Unknown 12/22/2020 Magnesium Gmtss101(240Mg) mg Tablets daily 30tabs Unknown 06/30/2020 Vitamin E4062re Tablets daily Unknown 02/24/2020 Cefuroxime Dbdksz087bk Tablets Take 1 Tablet By Mouth Twice Daily Jb Garber DO History Medications Ciprofloxacin JYN518pm Tablets 1 tab by mouth twice a day for infection 14tabs Mark Ocampo MD 06/17/2024 - 06/19/2024 Immunizations CPT Code Status Date Vaccine Lot # [id number] Given 07/11/2021 Moderna (Covid- 19) vaccine, mRNA, [...] Result H/L Range Note Laboratory test finding [address] [address] Urine Culture (SEE NOTE) 1 CBC W/ Auto Diff [address] [address] White Blood Count 7.6 10^3/uL Normal 4.1-10.2 Red Blood Count 3.89 10^6/uL Low 4.2 0-5.80 Hemoglobin 11.8 g/dL Low 13.0-17.0 Hematocrit 35.4 % Low 38-51 Mean Corpuscular Volume 91.0 fL Normal 82.0-98.0 Mean Corpuscular Hemoglobin 30.3 pg Normal 27.0-34.0 Mean Corpuscular Hgb Conc 33.3 g/dL Normal 31.0-36.0 RDW-SD 43.4 fL Normal 37-49 RDW-CV 13.2 % Normal 11.8-14.8 Platelet Count 300 10^3/uL Normal 150-3 60 Mean Platelet Volume 8.9 fL Low 9.4-12.4 [...] 0.0-0.0 NRBC # (Auto) 0.000 10^3/uL Normal 0.000-0.0 12 Comprehensive Metabolic Panel 4 [facility] [address] [place] [address] Sodium 124 mmol/L Critical low 136-145 2 Potassium 4.5 mmol/L Normal 3.5-5.1 Chloride 93 mmol/L Low 98-107 Carbon Dioxide 27 mmol/L Normal 21-32 [facility] Anion Gap 4.0 mmol/L Normal 1.0-15 .0 Blood Urea Nitrogen 24 mg/dL High 7-18 Creatinine,Seru m 1.24 mg/dL Normal 0.70-1.30 GFR 55 3 BUN/Creatinine Ratio 19.4 Normal 10.0-20.0 0 Glucose 112 mg/dL High 70-99 Osmolality,Calc ulated 255 Low 275-295 Calcium 8.7 mg/dL Normal 8.5-10.1 Aspartate Aminotrans(Sgot ) 21 U/L Normal 15-37 Alanine Aminotran (SGPT) 25 U/L Normal 16-61 Alkaline Phosphatase 156 U/L High 45-117 Bilirubin,Total 0.35 mg/dL Normal 0.20- 1.00 Total Protein 6.9 g/dL Normal 6.40-8.20 Albumin 3.7 g/dL Normal 3.4-5.0 Globulin 3.2 Ratio Normal 1.3-4.9 Albumin/Globuli n Ratio 1.2 Ratio Normal 1.2-2.3 Urine Microscopic [address] [address] Color,Urine Lt Yellow Yellow Clarity,Urine Cloudy Clear PH,Urine 6.0 Normal 6.0-8.0 Specific [place],Urine 1.007 Normal 1.000-1.0 30 Protein,Urine Negative Negative Glucose, Urine (Ua) Negative Negative Ketones,Urine Negative Negative Blood,Urine Negative Negative Nitrate,Urine Positive Negative Bilirubin,Urine Negative Negativ e Urobilinogen,Ur ine 0.2 0.2-1.0 Leukocyte Esterase ,Urine 3+ Negative WBC,Urine 20-30 /HPF 0-3 Add Urine Culture YES 4 Bacteria,Urine 2+ /HPF None Seen Urine Culture [address] [address] [phone] O:GNR Gram negative ro <SEE NOTE> 5 Urine Culture [place] Count 6 O:Esccol Escherichia coli O:GPC Gram positive co <SEE NOTE> 7 O:Stralph Strep-alpha hemo <SEE NOTE> 8 Gram Negative Id Uzair [address] [address] [phone] Ampicillin ^<=4 Susceptible Ampicillin/Sulb actam ^2/1 Susceptible Aztreonam ^<=2 Susceptible Cefepime ^<=1 Susceptible Ceftazidime ^<=2 Susceptible Ceftriaxone ^<=1 Susceptible Ciprofloxacin ^>2 Resistant Ertapenem ^<=0.25 Susceptible Gentamicin ^<=2 Susceptible Levofloxacin ^2 Resistant Meropenem ^<=0.5 Susceptible Nitrofurantoin ^<=16 Susceptible Piperacillin/Ta zobactam ^<=2/4 Susceptible Trimethoprim/Doherty lfamethoxazole ^<=0.5/9.5 Susceptible .Urinalysis 4 Office In House Clia Ua Leukocytes Manual Count 3+ Ua Nitrate Positive Urine Urobilin QL Random Trace Ua Protein 6.0 Ua PH Test Strip Trace Ua Blood Qual Trace Urine Specific [place] 1.010 Urine Ketone Auto Test Strip Negative [...] fol low. 5 Gram negative rods 6 50,000 Sensi Sensitivity Not Routinely Performed 7 Gram positive cocci 8 Strep-alpha hemolyti c Procedures Date Code Description Status 06/17/2024 3008F Body Mass Index (BMI), Docum ented (pv) Completed 06/17/2024 1125F Amnt Pain Noted; Pain Persis tant Completed Medical Devices Description No Information Available Encounters Type Date Location Provider Dx Diagnosis Office Visit 06/17/2024 2:45p [facility] Mark Ocampo MD I10 Essential (primary) hypertension R30.0 Dysuria N40.1 Benign prostatic hyp erplasia with lower urinary tract symp Z68.29 Body mass index [BMI ] 29.0-29.9, adult Assessments Date Code Description Provider 06/17/2024 I10 [...] * PSA Screen, Ordered: 06/17/24 * Thyroid [place], Ordered: 06/17/24 * Comments:* Above Normal BMI, Diet counseling performed. Helpful resource: www.myplate.gov Exercise counseling performed. Helpful resource: www.nutrition.gov/topics/sdnesdur-rev-kuaxghl * Follow up:* 1 week * All* New Medication:* Tamsulosin HCL 0.4 mg - 1 by mouth every day at bedtime for prostate * Ciprofloxacin HCL 500 mg - 1 tab by mouth twice a day for infection Functional Status Description No Information Available Mental Status Description No Information Available Referrals Refer to Dr Reason for Referral Status Appt Marlo Nathan Pantoja, DO Hard to Urinate and urine infe ction Sent 07/01/[address] [place] [address] [place] [address]
--- OUTSIDE RECORDS SUMMARY | 2024-08-02 22:18 | External Medical Summary | Continuity of Care Document ---
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 Vaccine Information Statement (VIS) Detail SARS-COV-2 (COVID-19) MODERNYadi July 11, 2021 [id number] Procedures Procedure Date Performed Status Urine Culture June 17, 2024 completed Urine Culture June 17, 2024 completed Relevant Diagnostic Tests and/or Laboratory Data Laboratory Results Test Date/Time Result Interpretation Reference Range Result Comment Performing Site White Blood Count June 17, 2024 4:13pm 7.6 10^3/uL 4.1-10.2 [facility] [id number] [address] [place] [address] Red Blood Count June 17, 2024 4:13pm 3.89 10^6/uL 4.20-5.80 [facility] [id number] [address] [place] [address] Hemoglobin June 17, 2024 4:13pm 11.8 g/dL 13.0-17.0 [facility] [id number] [address] [facility] [address] Hematocrit June 17, 2024 4:13pm 35.4 % 38-51 [facility] [id number] [address] [facility] [address] Mean Corpuscular Volume June 17, 2024 4:13pm 91.0 fL 82.0-98.0 [facility] [id number] [address] [facility] [address] Mean Corpuscular Hemoglobin June 17, 2024 4:13pm 30.3 pg 27.0-34.0 [facility] [id number] [address] [facility] [address] Mean Corpuscular Hemoglobin Concent June 17, 2024 4:13pm 33.3 g/dL 31.0-36.0 [facility] [id number] [address] [facility] [address] RDW Standard Deviation June 17, 2024 4:13pm 43.4 fL 37-49 [facility] [id number] [address] [facility] [address] RDW Coefficient of Variation June 17, 2024 4:13pm 13.2 % 11.8-14.8 [facility] [id number] [address] [facility] [place] [address] Platelet Count June 17, 2024 4:13pm 300 10^3/uL 150-360 [facility] [id number] [address] [facility] [place] [address] Mean Platelet Volume June 17, 2024 4:13pm 8.9 fL 9.4-12.4 [facility] [id number] [address] [place] [address] Neutrophils (%) (Auto) June 17, 2024 4:13pm 72.8 % 42-75 [facility] [id number] [address] [facility] [place] [address] Lymphocytes (%) (Auto) June 17, 2024 4:13pm 15.2 % 14-42 [facility] [id number] [address] [facility] [place] [address] Monocytes (%) (Auto) June 17, 2024 4:13pm 8.5 % 4-13 [facility] [id number] [address] [facility] [place] [address] Eosinophils (%) (Auto) June 17, 2024 4:13pm 3.3 % 0-6 [facility] [id number] [address] [facility] [place] [address] Basophils (%) (Auto) June 17, 2024 4:13pm 0.1 % 0-2 [facility] [id number] [address] [facility] [place] [address] Immature Granulocytes % June 17, 2024 4:13pm 0.1 % 0.0-0.7 [place] [id number] [address] [facility] [place] [address] Neutrophils # (Auto) June 17, 2024 4:13pm 5.5 10^3uL 1.8-6.6 [facility] [id number] [address] [facility] [place] [address] Lymphocytes # (Auto) June 17, 2024 4:13pm 1.2 10^3/uL 1.0-3.1 [facility] [id number] [address] [facility] [place] [address] Monocytes # (Auto) June 17, 2024 4:13pm 0.6 10^3uL 0.0-1.0 [facility] [id number] [address] [place] [address] Eosinophils # (Auto) June 17, 2024 4:13pm 0.3 10^3uL 0.0-0.5 [facility] [id number] [address] [place] [address] Basophils # (Auto) June 17, 2024 4:13pm 0.0 10^3/uL 0.0-0.1 [facility] [id number] [address] [place] [address] Urine Color June 17, 2024 4:05pm Lt yellow Yellow [facility] [id number] [address] [place] [address] Urine Clarity June 17, 2024 4:05pm Cloudy Clear [facility] [id number] [address] [place] [address] Urine pH June 17, 2024 4:05pm 6.0 6.0-8.0 [facility] [id number] [address] [place] [address] Urine Specific [place] June 17, 2024 4:05pm 1.007 1.000-1.03 0 [facility] [id number] [address] [place] [address] Urine Protein June 17, 2024 4:05pm Negative Negative [facility] [id number] [address] [place] [address] Urine Glucose (UA) June 17, 2024 4:05pm Negative Negative [facility] [id number] [address] [place] [address] Urine Ketones June 17, 2024 4:05pm Negative Negative [facility] [id number] [address] [place] [address] Urine Occult Blood June 17, 2024 4:05pm Negative Negative [facility] [id number] [address] [place] [address] Urine Nitrate June 17, 2024 4:05pm Positive Negative [facility] [id number] [address] [place] [address] Urine Bilirubin June 17, 2024 4:05pm Negative Negative [facility] [id number] [address] [place] [address] Urine Urobilinogen June 17, 2024 4:05pm 0.2 0.2-1.0 [facility] [id number] [address] [place] [address] Urine Leukocyte Esterase June 17, 2024 4:05pm 3+ Negative [facility] [id number] [address] [place] [address] Urine WBC June 17, 2024 4:05pm 20-30 /HPF 0-3 [facility] [id number] [address] [place] [address] Urine Culture Indicated June 17, 2024 4:05pm Yes Urine culture to follow. [facility] [id number] [address] [place] [address] Urine Bacteria June 17, 2024 4:05pm 2+ /HPF NONE SEEN [facility] [id number] [address] [facility] [address] Sodium Level June 17, 2024 4:13pm 124 mmol/L 136-145 Results checked & Critical results called to JINNY IN ER on 06/17/24 at 1649 by YOLANDA. [facility] [id number] [address] [facility] [place] [address] Potassium Level June 17, 2024 4:13pm 4.5 mmol/L 3.5-5.1 [facility] [id number] [address] [facility] [place] [address] Chloride Level June 17, 2024 4:13pm 93 mmol/L 98-107 [facility] [id number] [address] [facility] [address] Carbon Dioxide Level June 17, 2024 4:13pm 27 mmol/L 21-32 [facility] [id number] [address] [place] [address] Anion Gap June 17, 2024 4:13pm 4.0 MMOL/L 1.0-15.0 [facility] [id number] [address] [facility] [address] Blood Urea Nitrogen June 17, 2024 4:13pm 24 mg/dL 7-18 [facility] [id number] [address] [facility] [address] Creatinine June 17, 2024 4:13pm 1.24 mg/dL 0.70-1.30 [facility] [id number] [address] [facility] [address] Estimated GFR (MDRD) June 17, 2024 4:13pm 55 UNITS= mL/min/1.73m squared Unable to flag low results Results less than 60 may warrant further investigationPat ients race is not known. If the patient is , multiply the calculated GFR result provided by 1.21. GFR Estimate should not be used to alter drug dosages. [facility] [id number] [address] [facility] [address] BUN/Creatinine Ratio June 17, 2024 4:13pm 19.4 10.0-20.00 [facility] [id number] [address] [facility] [address] Glucose Level June 17, 2024 4:13pm 112 mg/dL 70-99 [facility] [id number] [address] [facility] [address] Calculated Osmolality June 17, 2024 4:13pm 255 275-295 [facility] [id number] [address] [facility] [address] Calcium Level June 17, 2024 4:13pm 8.7 mg/dL 8.5-10.1 [facility] [id number] [address] [facility] [address] Aspartate Amino Transf (AST/SGOT) June 17, 2024 4:13pm 21 U/L 15-37 [facility] [id number] [address] [facility] [address] Alanine Aminotransfera se (ALT/SGPT) June 17, 2024 4:13pm 25 U/L 16-61 [facility] [id number] [address] [place] [address] Alkaline Phosphatase June 17, 2024 4:13pm 156 U/L 45-117 [facility] [id number] [address] [facility] [address] Total Bilirubin June 17, 2024 4:13pm 0.35 mg/dL 0.20-1.00 [facility] [id number] [address] [facility] [place] [address] Total Protein June 17, 2024 4:13pm 6.9 g/dL 6.40-8.20 [facility] [id number] [address] [facility] [place] [address] Albumin June 17, 2024 4:13pm 3.7 g/dL 3.4-5.0 [facility] [id number] [address] [facility] [place] [address] Globulin June 17, 2024 4:13pm 3.2 Ratio 1.3-4.9 [facility] [id number] [address] [facility] [place] [address] Albumin/Globul in Ratio June 17, 2024 4:13pm 1.2 Ratio 1.2-2.3 [facility] [id number] [address] [facility] [place] [address] Microbiology Results Procedure Source Result Collection Date/Time Result Date/Time Result Comment Performing Site Urine Culture Urine,Evelia n Catch Escherichia coli June 17, 2024 3:31pm June 20, 2024 7:36am [facility] [id number] [address] [facility] [address] Urine,Evelia n Catch Strep-alpha hemolytic June 17, 2024 3:31pm June 20, 2024 7:36am [facility] [id number] [address] [facility] [address] Urine Culture Urine,Evelia n Catch June 17, 2024 4:19pm June 18, 2024 8:24am [facility] [id number] [address] [facility] [address] Vital Signs Vital Reading Result Reference Range [...] 10:26am Insurance Providers Guarantor Jameson Levy Address [address] [place] [address] Contact Info. Home Phone: Payer Policy Id Coverage Id Subscriber's Name Subscriber Id Effective Date Expiration Date [employer] Medicare MCREP [id number] Jameson Levy [id number] [facility] [id number] Jameson Levy [id number] Self Pay Self N/A Encounters Encounter Location(s) Arrival/Admit Date Discharge/Depart Date Provider(s) Departed Referred [facility] Drop Off June 17, 2024 3:22pm June 17, 2024 3:23pm Mark Ocampo MD Departed Emergency [facility]-Emergency Room June 17, 2024 3:47pm June 17, 2024 5:29pm null Departed Emergency [facility]-Emergency Room June 20, 2024 11:29am [...]
--- OUTSIDE RECORDS SUMMARY | 2024-08-02 22:18 | External Medical Summary | Continuity of Care Document ---
Author Name Unknown Organization [facility] ce Address [address] [place] [address] Phone [phone] Care Team Providers Care Publication Distributor Name Role Phone Jb Garber DO Care Team Information [employer] [phone] Jb Garber DO Primary Care Physician Problems [...] for prostate 30bogdan Ocampo MD 06/17/2024 Amlodipine Ayjipwtp7dz Tablets 1 by mouth every day 90tabs Jb Garber DO 06/08/[address] daily 90tabs Unknown 12/22/2020 Magnesium Ldvoq993(240Mg) mg Tablets daily 30tabs Unknown 06/30/2020 Vitamin M1096oy Tablets daily Unknown 02/24/2020 Cefuroxime Aeaovp250dr Tablets Take 1 Tablet By Mouth Twice Daily Jb Garber DO History Medications Ciprofloxacin WHM235qg Tablets 1 tab by mouth twice a day for infection 14tabs Mark Ocampo MD 06/17/2024 - 06/19/2024 Immunizations CPT Code Status Date Vaccine Lot # [id number] Given 07/11/2021 Moderna (Covid- 19) vaccine, mRNA, [...] H/L Range Note Laboratory test finding [address] [address] [phone] Urine Culture (SEE NOTE) 1 CBC W/ Auto Diff [address] [address] [phone] White Blood Count 7.6 10^3/uL Normal 4.1-10.2 [...] Normal 0.000-0.0 12 Comprehensive Metabolic Panel 4 [facility] [address] [place] [address] Sodium 124 mmol/L Critical low 136-145 2 [...] 1.2 Ratio Normal 1.2-2.3 Urine Microscopic [address] [address] [phone] Color,Urine Lt Yellow Yellow Clarity,Urine Cloudy Clear PH,Urine 6.0 Normal 6.0-8.0 Specific [place],Urine 1.007 Normal 1.000-1.0 30 Protein,Urine Negative Negative Glucose, Urine (Ua) Negative Negative Ketones,Urine Negative Negative Blood,Urine Negative Negative Nitrate,Urine Positive Negative Bilirubin,Urine Negative Negativ e Urobilinogen,Ur ine 0.2 0.2-1.0 Leukocyte Esterase ,Urine 3+ Negative WBC,Urine 20-30 /HPF 0-3 Add Urine Culture YES 4 Bacteria,Urine 2+ /HPF None Seen Urine Culture [address] [address] O:GNR Gram negative ro <SEE NOTE> 5 Urine Culture [place] Count 6 O:Esccol Escherichia coli O:GPC Gram positive co <SEE NOTE> 7 O:Stralph Strep-alpha hemo <SEE NOTE> 8 Gram Negative Id Uzair [address] [address] Ampicillin ^<=4 Susceptible Ampicillin/Sulb actam ^2/1 Susceptible [...] Trace Ua Blood Qual Trace Urine Specific [place] 1.010 Urine Ketone Auto Test Strip Negative [...] * PSA Screen, Ordered: 06/17/24 * Thyroid [place], Ordered: 06/17/24 * Comments:* Above Normal BMI, Diet counseling performed. Helpful resource: www.myplate.gov Exercise counseling performed. Helpful resource: www.nutrition.gov/topics/qveiialb-pud-hiheeda * Follow up:* 1 week * All* New Medication:* Tamsulosin HCL 0.4 mg - 1 by mouth every day at bedtime for prostate * Ciprofloxacin HCL 500 mg - 1 tab by mouth twice a day for infection Functional Status Description No Information Available Mental Status Description No Information Available Referrals Refer to Dr Reason for Referral Status Appt Marlo e Nathan Delgado, DO Hard to Urinate and urine infe ction Sent 07/01/[address] [place] [address] SCOTT Stark [address]
--- OUTSIDE RECORDS SUMMARY | 2024-08-02 22:18 | External Medical Summary ---
Author Name Unknown Address Unknown Organization [facility] [address] [place] [address] Laboratory Report Ordering Provider Test Date Status Danny Naranjo 07/19/2024 18:00 Final FAXED TO [phone] ON 06/22
Clean Catch Observation Date Value Abnormality Reference (Units ) Status O:ESCCOL 07/23/2024 07:01 Escherichia coli Final Urine Culture 07/23/2024 07:01 [place] Count Final Urine Culture 07/23/2024 07:01 >100,000 CFU/ml (CFU/ml) Final O:ENTAER 07/23/2024 07:01 Klebsiella aerogenes Final Urine Culture 07/23/2024 07:01 [place] Count Final Urine Culture 07/23/2024 07:01 50,000 CFU/ml (CFU/ml) Final Performing Location [facility] [address] [place] [address] Ordering Provider Test Date Status Danny Naranjo 07/19/2024 18:00 Final Observation Date Value Abnormality Reference (Units ) Status Ampicillin 07/23/2024 07:01 >16 Resistant Final Ampicillin/Sulbactam 07/23/2024 07:01 16/8 Intermediate Final Aztreonam 07/23/2024 07:01 <=2 Susceptible Final Cefepime 07/23/2024 07:01 <=1 Susceptible Final Ceftazidime 07/23/2024 07:01 <=2 Susceptible Final Ceftriaxone 07/23/2024 07:01 <=1 Susceptible Final Ciprofloxacin 07/23/2024 07:01 >2 Resistant Final Ertapenem 07/23/2024 07:01 <=0.25 Susceptible Final Gentamicin 07/23/2024 07:01 >8 Resistant Final Levofloxacin 07/23/2024 07:01 >4 Resistant Final Meropenem 07/23/2024 07:01 <=0.5 Susceptible Final Nitrofurantoin 07/23/2024 07:01 <=16 Susceptible Final Piperacillin/Tazobactam 07/23/2024 07:01 4/4 Susceptible Final Trimethoprim/Sulfamethox azole 07/23/2024 07:01 <=0.5/9.5 Susceptible Final Performing Location [address] [address] Ordering Provider Test Date Status Danny Naranjo 07/19/2024 18:00 Final Observation Date Value Abnormality Reference (Units ) Status Ampicillin 07/23/2024 07:01 >16 Resistant Final Ampicillin/Sulbactam 07/23/2024 07:01 >16/8 Resistant Final Aztreonam 07/23/2024 07:01 <=2 Susceptible Final Cefazolin 07/23/2024 07:01 >16 Resistant Final Cefepime 07/23/2024 07:01 <=1 Susceptible Final Ceftazidime 07/23/2024 07:01 <=2 Susceptible Final Ceftriaxone 07/23/2024 07:01 <=1 Susceptible Final Ciprofloxacin 07/23/2024 07:01 <=0.25 Susceptible Final Ertapenem 07/23/2024 07:01 <=0.25 Susceptible Final Gentamicin 07/23/2024 07:01 <=2 Susceptible Final Levofloxacin 07/23/2024 07:01 <=0.5 Susceptible Final Meropenem 07/23/2024 07:01 <=0.5 Susceptible Final Nitrofurantoin 07/23/2024 07:01 64 Intermediate Final Piperacillin/Tazobactam 07/23/2024 07:01 4/4 Susceptible Final Trimethoprim/Sulfamethox azole 07/23/2024 07:01 <=0.5/9.5 Susceptible Final Performing Location [address] [address]
--- OUTSIDE RECORDS SUMMARY | 2024-08-02 22:18 | External Medical Summary | Continuity of Care Document ---
Author Name Unknown Address [address] [place] [address] Phone Organization [facility] Address [address] [facility] [place] [address] Phone Support Name Relationship Address Phone Mark Ocampo Primary Care Provider [address] [place] [address] Jb Garber Emergency Provider [address] [place] [address] Tripp Rice Emergency Provider [address] [place] [address] Nathan Delgado Attending Provider [address] [place] [address] Chief Complaint and Reason for Visit Chief [...] PO Twice Daily July 12, 2020 12:00am [facility] 3:24pm Cefuroxime Axetil (Ceftin) 500 MG [...] Event Date Not Given Reason Dose Number Tape Calender Lot Number Vaccine Information Statement (VIS) Detail SARS-COV-2 (COVID-19) MODERNA July 11, 2021 [id number] Procedures Procedure Date Performed Status Urine Culture June 17, 2024 completed Urine Culture June 17, 2024 completed Relevant Diagnostic Tests and/or Laboratory Data Laboratory Results Test Date/Time Result Interpretation Reference Range Result Comment Performing Site White Blood Count June 17, 2024 4:13pm 7.6 10^3/uL 4.1-10.2 [facility] [id number] [address] [facility] [place] [address] Red Blood Count June 17, 2024 4:13pm 3.89 10^6/uL 4.20-5.80 [facility] [id number] [address] [facility] [place] [address] Hemoglobin June 17, 2024 4:13pm 11.8 g/dL 13.0-17.0 [facility] [id number] [address] [facility] [place] [address] Hematocrit June 17, 2024 4:13pm 35.4 % 38-51 [facility] [id number] [address] [facility] [place] [address] Mean Corpuscular Volume June 17, 2024 4:13pm 91.0 fL 82.0-98.0 [facility] [id number] [address] [facility] [place] [address] Mean Corpuscular Hemoglobin June 17, 2024 4:13pm 30.3 pg 27.0-34.0 [facility] [id number] [address] [facility] [place] [address] Mean Corpuscular Hemoglobin Concent June 17, 2024 4:13pm 33.3 g/dL 31.0-36.0 [facility] [id number] [address] [facility] [place] [address] RDW Standard Deviation June 17, 2024 4:13pm 43.4 fL 37-49 [facility] [id number] [address] [facility] [place] [address] RDW Coefficient of Variation June 17, 2024 4:13pm 13.2 % 11.8-14.8 [facility] [id number] [address] [facility] [place] [address] Platelet Count June 17, 2024 4:13pm 300 10^3/uL 150-360 [facility] [id number] [address] [place] [address] Mean Platelet Volume June 17, 2024 4:13pm 8.9 fL 9.4-12.4 [facility] [id number] [address] [facility] [place] [address] Neutrophils (%) (Auto) June 17, 2024 4:13pm 72.8 % 42-75 [facility] [id number] [address] [facility] [place] [address] Lymphocytes (%) (Auto) June 17, 2024 4:13pm 15.2 % 14-42 [facility] [id number] [address] [facility] [place] [address] Monocytes (%) (Auto) June 17, 2024 4:13pm 8.5 % 4-13 [facility] [id number] 214 [facility] [place] [address] Eosinophils (%) (Auto) June 17, 2024 4:13pm 3.3 % 0-6 [facility] [id number] 214 [facility] [place] [address] Basophils (%) (Auto) June 17, 2024 4:13pm 0.1 % 0-2 [facility] [id number] [address] [facility] [place] [address] Immature Granulocytes % June 17, 2024 4:13pm 0.1 % 0.0-0.7 [facility] [id number] [address] [facility] [place] [address] Neutrophils # (Auto) June 17, 2024 4:13pm 5.5 10^3uL 1.8-6.6 [facility] [id number] [address] [facility] [place] [address] Lymphocytes # (Auto) June 17, 2024 4:13pm 1.2 10^3/uL 1.0-3.1 [facility] [id number] [address] [facility] [place] [address] Monocytes # (Auto) June 17, 2024 4:13pm 0.6 10^3uL 0.0-1.0 [facility] [id number] [address] [place] [address] Eosinophils # (Auto) June 17, 2024 4:13pm 0.3 10^3uL 0.0-0.5 [facility] [id number] [address] [place] [address] Basophils # (Auto) June 17, 2024 4:13pm 0.0 10^3/uL 0.0-0.1 [facility] [id number] [address] [place] [address] Urine Color June 17, 2024 4:05pm Lt yellow [facility] [id number] [address] [place] [address] Urine Color July 19, 2024 4:19pm Dk. yellow [facility] [id number] [address] [place] [address] Urine Clarity June 17, 2024 4:05pm Cloudy Clear [facility] [id number] [address] [place] [address] Urine Clarity July 19, 2024 4:19pm Slightly cloudy Clear [facility] [id number] [address] [place] [address] Urine pH June 17, 2024 4:05pm 6.0 6.0-8.0 [facility] [id number] [address] [place] [address] Urine pH July 19, 2024 4:19pm 6.0 6.0-8.0 [facility] [id number] [address] [place] [address] Urine Specific [place] June 17, 2024 4:05pm 1.007 1.000-1.03 0 [facility] [id number] [address] [place] [address] Urine Specific [place] July 19, 2024 4:19pm 1.010 1.000-1.03 0 [facility] [id number] [address] [place] [address] Urine Protein June 17, 2024 4:05pm Negative Negative [facility] [id number] [address] [place] [address] Urine Protein July 19, 2024 4:19pm 1+ Negative [facility] [id number] [address] [place] [address] Urine Glucose (UA) June 17, 2024 4:05pm Negative Negative [facility] [id number] [address] [place] [address] Urine Glucose (UA) July 19, 2024 4:19pm Trace Negative [facility] [id number] [address] [place] [address] Urine Ketones June 17, 2024 4:05pm Negative Negative [facility] [id number] [address] [place] [address] Urine Ketones July 19, 2024 4:19pm Negative Negative [facility] [id number] [address] [place] [address] Urine Occult Blood June 17, 2024 4:05pm Negative Negative [facility] [id number] [address] [place] [address] Urine Occult Blood July 19, 2024 4:19pm 3+ Negative [facility] [id number] [address] [place] [address] Urine Nitrate June 17, 2024 4:05pm Positive Negative [facility] [id number] [address] [place] [address] Urine Nitrate July 19, 2024 4:19pm Positive Negative [facility] [id number] [address] [place] [address] Urine Bilirubin June 17, 2024 4:05pm Negative Negative [facility] [id number] [address] [place] [address] Urine Bilirubin July 19, 2024 4:19pm Negative Negative [facility] [id number] [address] [place] [address] Urine Urobilinogen June 17, 2024 4:05pm 0.2 0.2-1.0 [facility] [id number] [address] [place] [address] Urine Urobilinogen July 19, 2024 4:19pm 1.0 0.2-1.0 [facility] [id number] [address] [place] [address] Urine Leukocyte Esterase June 17, 2024 4:05pm 3+ Negative [facility] [id number] [address] [place] [address] Urine Leukocyte Esterase July 19, 2024 4:19pm 3+ Negative [facility] [id number] [address] [place] [address] Urine RBC July 19, 2024 4:19pm Tntc /HPF 0-3 [facility] [id number] [address] [place] [address] Urine WBC June 17, 2024 4:05pm 20-30 /HPF 0-3 [facility] [id number] [address] [place] [address] Urine WBC July 19, 2024 4:19pm Tntc /HPF 0-3 [facility] [id number] [address] [place] [address] Urine Culture Indicated June 17, 2024 4:05pm Yes Urine culture to follow. [facility] [id number] [address] [place] [address] Urine Culture Indicated July 19, 2024 4:19pm Yes Urine culture to follow. [facility] [id number] [address] [place] [address] Urine Epithelial Cells July 19, 2024 4:19pm 3-6 /HPF 0-4 [facility] [id number] [address] [place] [address] Urine Bacteria June 17, 2024 4:05pm 2+ /HPF NONE SEEN [facility] [id number] [address] [place] [address] Urine Bacteria July 19, 2024 4:19pm 3+ /HPF NONE SEEN [facility] [id number] [address] [facility] [place] [address] Sodium Level June 17, 2024 4:13pm 124 mmol/L 136-145 Results checked & Critical results called to JINNY IN ER on 06/17/24 at 1649 by YOLANDA. [facility] [id number] [address] [facility] [place] [address] Potassium Level June 17, 2024 4:13pm 4.5 mmol/L 3.5-5.1 [facility] [id number] [address] [facility] [place] [address] Chloride Level June 17, 2024 4:13pm 93 mmol/L 98-107 [facility] [id number] [address] [facility] [place] [address] Carbon Dioxide Level June 17, 2024 4:13pm 27 mmol/L 21-32 [facility] [id number] [address] [facility] [place] [address] Anion Gap June 17, 2024 4:13pm 4.0 MMOL/L 1.0-15.0 [facility] [id number] [address] [facility] [place] [address] Blood Urea Nitrogen June 17, 2024 4:13pm 24 mg/dL 7-18 [facility] [id number] [address] [facility] [place] [address] Creatinine June 17, 2024 4:13pm 1.24 mg/dL 0.70-1.30 [facility] [id number] [address] [place] [address] Estimated GFR (MDRD) June 17, 2024 4:13pm 55 UNITS= mL/min/1.73m squared Unable to flag low results Results less than 60 may warrant further investigationPat ients race is not known. If the patient is , multiply the calculated GFR result provided by 1.21. GFR Estimate should not be used to alter drug dosages. [facility] [id number] [address] [facility] [place] [address] BUN/Creatinine Ratio June 17, 2024 4:13pm 19.4 10.0-20.00 [facility] [id number] [address] [facility] [address] Glucose Level June 17, 2024 4:13pm 112 mg/dL 70-99 [facility] [id number] [address] [facility] [address] Calculated Osmolality June 17, 2024 4:13pm 255 275-295 [facility] [id number] [address] [facility] [place] [address] Calcium Level June 17, 2024 4:13pm 8.7 mg/dL 8.5-10.1 [facility] [id number] [address] [facility] [place] [address] Aspartate Amino Transf (AST/SGOT) June 17, 2024 4:13pm 21 U/L 15-37 [facility] [id number] 214 [facility] [place] [address] Alanine Aminotransfera se (ALT/SGPT) June 17, 2024 4:13pm 25 U/L 16-61 [facility] [id number] [address] [facility] [place] [address] Alkaline Phosphatase June 17, 2024 4:13pm 156 U/L 45-117 [facility] [id number] [address] [facility] [place] [address] Total Bilirubin June 17, 2024 4:13pm 0.35 mg/dL 0.20-1.00 [facility] [id number] [address] [facility] [place] [address] Total Protein June 17, 2024 4:13pm 6.9 g/dL 6.40-8.20 [facility] [id number] [address] [facility] [place] [address] Albumin June 17, 2024 4:13pm 3.7 g/dL 3.4-5.0 [facility] [id number] [address] [facility] [place] [address] Globulin June 17, 2024 4:13pm 3.2 Ratio 1.3-4.9 [facility] [id number] [address] [facility] [place] [address] Albumin/Globul in Ratio June 17, 2024 4:13pm 1.2 Ratio 1.2-2.3 [facility] [id number] [address] [facility] [place] [address] Microbiology Results Procedure Source Result Collection Date/Time Result Date/Time Result Comment Performing Site Urine Culture Urine,Evelia n Catch Escherichia coli June 17, 2024 3:31pm June 20, 2024 7:36am [facility] [id number] [address] [facility] [place] [address] Urine,Evelia n Catch Strep-alpha hemolytic June 17, 2024 3:31pm June 20, 2024 7:36am [facility] [id number] [address] [facility] [place] [address] Urine Culture Urine,Evelia n Catch June 17, 2024 4:19pm June 18, 2024 8:24am [facility] [id number] [address] [facility] [place] [address] Vital Signs Vital Reading Result Reference Range [...] Insurance Providers Guarantor Jameson Reyes Cam Address [address] [facility] [address] Contact Info. Home Phone: Payer Policy Id Coverage Id Subscriber's Name Subscriber Id Effective Date Expiration Date [employer] Medicare MCREP [id number] Jameson Levy [id number] Cristhian Gold MCREP [id number] Jameson Levy [id number] Self Pay Self N/A Encounters Encounter Location(s) Arrival/Admit Date Discharge/Depart Date Provider(s) Departed Referred [facility]-Lab Drop Off June 17, 2024 3:22pm June 17, 2024 3:23pm Mark Ocampo MD Departed Emergency [facility]-Emergency Room June 17, 2024 3:47pm June 17, 2024 5:29pm null Departed Emergency [facility]Emergency Room June 20, 2024 11:29am June 20, 2024 1:27pm null Departed Referred [facility]Laborator y July 19, 2024 3:59pm July 19, [...]
--- OUTSIDE RECORDS SUMMARY | 2024-08-02 22:18 | External Medical Summary | Continuity of Care Document ---
Author Name Unknown Organization [facility] Address [address] [facility] [place] [address] Phone [phone] Care Team Providers Care Biometrics Technician Name Role Phone Jb Garber DO Care Team Information Management Consulting [phone] Jb Garber DO Primary Care Physician Problems [...] Qnty Indications Order ing Provider Date Ciprofloxacin [id number] Tablets 1 tab by mouth twice a day for infection 14tabs Mark Ocampo MD 06/17/2024 Tamsulosin HCL0.4mg Capsules 1 by mouth every day at bedtime for prostate 30caps Mark Ocampo MD 06/17/2024 Amlodipine Tgmcicxu1in Tablets 1 by mouth every day 90tabs Jb Gabrer DO 06/08/[id number] daily 90tabs Unknown 12/22/2020 Magnesium Ypgew318(240Mg) mg Tablets daily 30tabs Unknown 06/30/2020 Vitamin [id number] Tablets daily Unknown 02/24/2020 Immunizations CPT Code Status Date Vaccine Lot # [id number] Given 07/11/2021 Moderna (Covid- 19) vaccine, mRNA, [...] H/L Range Note Laboratory test finding 06/17/2024 [facility] [address] [facility] [place] [address] Urine Culture (SEE NOTE) 1 CBC W/ Auto Diff 06/17/2024 [facility] 214 [place] [address] White Blood Count 7.6 10^3/uL Normal 4.1-10.2 [...] Normal 0.000-0.01 2 Comprehensive Metabolic Panel 06/17/2024 [facility] [address] [facility] [place] [address] Sodium 124 mmol/L Critical low 136-145 2 Potassium 4.5 mmol/L Normal 3.5-5.1 Chloride 93 mmol/L Low 98-107 Carbon Dioxide 27 mmol/L Normal 21-32 [facility] Anion Gap 4.0 mmol/L Normal 1.0-15 .0 [...] 1.2 Ratio Normal 1.2-2.3 Urine Microscopic 06/17/[address] [address] Color,Urine Lt Yellow Yellow Clarity,Urine Cloudy Clear PH,Urine 6.0 Normal 6.0-8.0 Specific [place],Urine 1.007 Normal 1.000-1.03 0 Protein,Urine Negative Negative Glucose, Urine (Ua) Negative Negative Ketones,Urine Negative Negative Blood,Urine Negative Negative Nitrate,Urine Positive Negative Bilirubin,Urin e Negative Negative Urobilinogen,U rine 0.2 0.2-1.0 Leukocyte Esterase ,Urine 3+ Negative WBC,Urine 20-30 /HPF 0-3 Add Urine Culture YES 4 Bacteria,Urine 2+ /HPF None Seen Urine Culture 06/17/2024 [facility] [address] [place] [address] O:GNR Gram negative ro <SEE NOTE> 5 Urine Culture [place] Count 6 .Urinalysis 06/17/2024 Office In House Clia Ua Leukocytes Manual Count 3+ Ua Nitrate Positive Urine Urobilin QL Random Trace Ua Protein 6.0 Ua PH Test Strip Trace Ua Blood Qual Trace Urine Specific [place] 1.010 Urine Ketone Auto Test Strip Negative [...] * PSA Screen, Ordered: 06/17/24 * Thyroid [place], Ordered: 06/17/24 * Comments:* Above Normal BMI, Diet counseling performed. Helpful resource: www.myplate.gov Exercise counseling performed. Helpful resource: www.nutrition.gov/topics/wgrnltie-llz-wpuepwa * Follow up:* 1 week * All* [...] Urinate and urine infe ction Sent 07/01/[address] [place] [address] [place] [address]
--- OUTSIDE RECORDS SUMMARY | 2024-08-02 22:18 | External Medical Summary | Continuity of Care Document ---
Author Name [facility] Address [address] [facility] [place] [place] [address] Phone [phone] Care Team Providers Care English And Reading Instructor Name Role Phone Jb Garber DO Care Team Information Control Clerk Subassembly [phone] Jb Garber DO Primary Care Physician Problems [...] prostate 30caps Mark Ocampo MD 06/17/2024 Amlodipine Nxgivzcg8cd Tablets 1 by mouth every day 90tabs Jb Garber DO 06/08/[address] daily 90tabs Unknown 12/22/2020 Magnesium Kctuu914(240Mg) mg Tablets daily 30tabs Unknown 06/30/2020 Vitamin F4737ay Tablets daily Unknown 02/24/2020 History Medications Ciprofloxacin [id number] Tablets 1 tab by mouth twice a day for infection 14tabs Mark Ocampo MD 06/17/2024 - 06/19/2024 Immunizations CPT Code Status Date Vaccine Lot # [id number] Given 07/11/2021 Moderna (Covid- 19) vaccine, mRNA, [...] H/L Range Note Laboratory test finding [address] [id number] Urine Culture (SEE NOTE) 1 CBC W/ Auto Diff 4 [facility] [address] [place] [address] [phone] White Blood Count 7.6 10^3/uL Normal 4.1-10.2 [...] Normal 0.000-0.0 12 Comprehensive Metabolic Panel 4 [facility] [address] [place] [address] [phone] Sodium 124 mmol/L Critical low 136-145 2 Potassium 4.5 mmol/L Normal 3.5-5.1 Chloride 93 mmol/L Low 98-107 Carbon Dioxide 27 mmol/L Normal 21-32 [facility] Anion Gap 4.0 mmol/L Normal 1.0-15 .0 [...] 1.2 Ratio Normal 1.2-2.3 Urine Microscopic [address] [address] [phone] Color,Urine Lt Yellow Yellow Clarity,Urine Cloudy Clear PH,Urine 6.0 Normal 6.0-8.0 Specific [place],Urine 1.007 Normal 1.000-1.0 30 Protein,Urine Negative Negative Glucose, Urine (Ua) Negative Negative Ketones,Urine Negative Negative Blood,Urine Negative Negative Nitrate,Urine Positive Negative Bilirubin,Urine Negative Negativ e Urobilinogen,Ur ine 0.2 0.2-1.0 Leukocyte Esterase ,Urine 3+ Negative WBC,Urine 20-30 /HPF 0-3 Add Urine Culture YES 4 Bacteria,Urine 2+ /HPF None Seen Urine Culture [address] [address] O:GNR Gram negative ro <SEE NOTE> 5 Urine Culture [place] Count 6 O:Esccol Escherichia coli O:GPC Gram positive co <SEE NOTE> 7 Gram Negative Id Uzair [address] [address] [phone] Ampicillin ^<=4 Susceptible Ampicillin/Sulb actam ^2/1 Susceptible [...] Trace Ua Blood Qual Trace Urine Specific [place] 1.010 Urine Ketone Auto Test Strip Negative [...] 5 Gram negative rods 6 >100,000 Sensi SUBCULTURE TO ISOLATE 7 Gram positive cocci Procedures Date Code Description Status 06/17/2024 [id number] [...] * PSA Screen, Ordered: 06/17/24 * Thyroid [place], Ordered: 06/17/24 * Comments:* Above Normal BMI, Diet counseling performed. Helpful resource: www.myplate.gov Exercise counseling performed. Helpful resource: www.nutrition.gov/topics/mhoipwgi-dmf-bmadjok * Follow up:* 1 week * All* New Medication:* Tamsulosin HCL 0.4 mg - 1 by mouth every day at bedtime for prostate * Ciprofloxacin HCL 500 mg - 1 tab by mouth twice a day for infection Functional Status Description No Information Available Mental Status Description No Information Available Referrals Refer to Dr Reason for Referral Status Appt Nathan Hale, DO Hard to Urinate and urine infe ction Sent 07/01/[address] [place] [address] [place] [address]
--- OUTSIDE RECORDS SUMMARY | 2024-08-02 22:18 | External Medical Summary ---
Author Name Unknown Address Unknown Organization [facility] [address] [place] [address] Laboratory Report Ordering Provider Test Date Status Danny Naranjo 07/19/2024 16:19 Final FAXED TO [phone] ON 06/22 Observation Date Value Abnormality Reference (Units ) Status Color, Urine 07/19/2024 17:58 DK. YELLOW Yellow Final Clarity, Urine 07/19/2024 17:58 Slightly Cloudy Clear Final pH, Urine 07/19/2024 17:58 6.0 Normal 6.0-8.0 Final Specific gravity of Urine by Automated test strip 07/19/2024 17:58 1.010 Normal 1.000-1.030 Final Protein [Presence] in Urine 07/19/2024 17:58 1+ Abnormal Negative Final Glucose [Presence] in Urine 07/19/2024 17:58 TRACE Negative Final Ketones [Mass/volume] in Urine by Automated test strip 07/19/2024 17:58 Negative Negative Final Blood,Urine 07/19/2024 17:58 3+ Negative Final Nitrate [Mass/volume] in Urine 07/19/2024 17:58 Positive Negative Final Bilirubin, Urine 07/19/2024 17:58 Negative Negative Final Urobilinogen [Presence] in Urine by Automated test strip 07/19/2024 17:58 1.0 0.2-1.0 Final Leukocyte esterase [Presence] in Urine by Automated test strip 07/19/2024 17:58 3+ Negative Final Erythrocytes [#/volume] in Urine sediment by Microscopy high power field 07/19/2024 18:06 TNTC 0-3 (/HPF) Final Leukocytes [Presence] in Urine sediment by Light microscopy 07/19/2024 18:06 TNTC 0-3 (/HPF) Final Bacteria identified in Urine by Culture 07/19/2024 18:00 YES Final Urine culture to follow. Epithelial cells, Urine 07/19/2024 18:06 3-6 0-4 (/HPF) Final Bacteria, Urine 07/19/2024 18:06 3+ NONE SE EN (/HPF) Final Performing Location [facility] [address] [place] [address]
[2024-08-02] MEDS: SODIUM CHLORIDE 1 GM TABLET PO STA (22:19)
--- OUTSIDE RECORDS SUMMARY | 2024-08-02 22:19 | External Medical Summary ---
Author Name Unknown Address Unknown Organization L1E:[facility] [address] [place] [address] Laboratory Report Ordering Provider Test Date Status Terrence Flores 06/17/2024 15:31 Final Clean Catch Observation Date Value Abnormality Reference (Units ) Status O:ESCCOL 06/20/2024 07:36 Escherichia coli Final Urine Culture 06/20/2024 07:36 Gilman Count Final Urine Culture 06/20/2024 07:36 >100,000 CFU/ml (CFU/ml) Final O:STRALPH 06/20/2024 07:36 Strep-alpha hemolytic Final Urine Culture 06/20/2024 07:36 Gilman Count Final Urine Culture 06/20/2024 07:36 50,000 CFU/ml (CFU/ml) Final Urine Culture 06/20/2024 07:36 Sensi Final Urine Culture 06/20/2024 07:36 Sensitivity Not Routinely Performed Final Performing Location [facility] [address] [place] [address] Ordering Provider Test Date Status Terrence Flores 06/17/2024 15:31 Final Observation Date Value Abnormality Reference (Units ) Status Ampicillin 06/20/2024 07:36 <=4 Susceptible Final Ampicillin/Sulbactam 06/20/2024 07:36 2/1 Susceptible Final Aztreonam 06/20/2024 07:36 <=2 Susceptible Final Cefepime 06/20/2024 07:36 <=1 Susceptible Final Ceftazidime 06/20/2024 07:36 <=2 Susceptible Final Ceftriaxone 06/20/2024 07:36 <=1 Susceptible Final Ciprofloxacin 06/20/2024 07:36 >2 Resistant Final Ertapenem 06/20/2024 07:36 <=0.25 Susceptible Final Gentamicin 06/20/2024 07:36 <=2 Susceptible Final Levofloxacin 06/20/2024 07:36 2 Resistant Final Meropenem 06/20/2024 07:36 <=0.5 Susceptible Final Nitrofurantoin 06/20/2024 07:36 <=16 Susceptible Final Piperacillin/Tazobactam 06/20/2024 07:36 <=2/4 Susceptible Final Trimethoprim/Sulfamethox azole 06/20/2024 07:36 <=0.5/9.5 Susceptible Final Performing Location [facility] [address] [place] [address]
--- OUTSIDE RECORDS SUMMARY | 2024-08-02 22:19 | External Medical Summary | Continuity of Care Document ---
Author Name Unknown Address [address] [place] [address] Phone Organization [facility] Address [address] [place] [address] Phone Support Name Relationship Address Phone Mark Ocampo Primary Care Provider [address] [place] [address] Jb Garber Emergency Provider [address] [place] [address] Chief Complaint and Reason for Visit Chief [...] Event Date Not Given Reason Dose Number [employer] Lot Number Vaccine Information Statement (VIS) Detail SARS-COV-2 (COVID-19) MODERNA July 11, 2021 [id number] Relevant Diagnostic Tests and/or Laboratory Data Laboratory Results Test Date/Time Result Interpretation Reference Range Result Comment Performing Site White Blood Count June 17, 2024 4:13pm 7.6 10^3/uL 4.1-10.2 [facility] [id number] [address] [place] [address] Red Blood Count June 17, 2024 4:13pm 3.89 10^6/uL 4.20-5.80 [facility] [id number] [address] [place] [address] Hemoglobin June 17, 2024 4:13pm 11.8 g/dL 13.0-17.0 [facility] [id number] [address] [place] [address] Hematocrit June 17, 2024 4:13pm 35.4 % 38-51 [facility] [id number] [address] [place] [address] Mean Corpuscular Volume June 17, 2024 4:13pm 91.0 fL 82.0-98.0 [facility] [id number] [address] [place] [address] Mean Corpuscular Hemoglobin June 17, 2024 4:13pm 30.3 pg 27.0-34.0 [facility] [id number] [address] [place] [address] Mean Corpuscular Hemoglobin Concent June 17, 2024 4:13pm 33.3 g/dL 31.0-36.0 [facility] [id number] [address] [place] [address] RDW Standard Deviation June 17, 2024 4:13pm 43.4 fL 37-49 [facility] [id number] [address] [facility] [place] [address] RDW Coefficient of Variation June 17, 2024 4:13pm 13.2 % 11.8-14.8 [facility] [id number] [address] [place] [address] Platelet Count June 17, 2024 4:13pm 300 10^3/uL 150-360 [facility] [id number] [address] [place] [address] Mean Platelet Volume June 17, 2024 4:13pm 8.9 fL 9.4-12.4 [facility] [id number] [address] [place] [address] Neutrophils (%) (Auto) June 17, 2024 4:13pm 72.8 % 42-75 [facility] [id number] [address] [facility] [place] [address] Lymphocytes (%) (Auto) June 17, 2024 4:13pm 15.2 % 14-42 [facility] [id number] [address] [facility] [place] [address] Monocytes (%) (Auto) June 17, 2024 4:13pm 8.5 % 4-13 [facility] [id number] [address] [facility] [place] [address] Eosinophils (%) (Auto) June 17, 2024 4:13pm 3.3 % 0-6 [facility] [id number] [address] [facility] [place] [address] Basophils (%) (Auto) June 17, 2024 4:13pm 0.1 % 0-2 [facility] [id number] [address] [place] [address] Immature Granulocytes % June 17, 2024 4:13pm 0.1 % 0.0-0.7 [facility] [id number] [address] [facility] [place] [address] Neutrophils # (Auto) June 17, 2024 4:13pm 5.5 10^3uL 1.8-6.6 [facility] [id number] [address] [facility] [place] [address] Lymphocytes # (Auto) June 17, 2024 4:13pm 1.2 10^3/uL 1.0-3.1 [facility] [id number] [address] [facility] [place] [address] Monocytes # (Auto) June 17, 2024 4:13pm 0.6 10^3uL 0.0-1.0 [facility] [id number] [address] [facility] [place] [address] Eosinophils # (Auto) June 17, 2024 4:13pm 0.3 10^3uL 0.0-0.5 [facility] [id number] [address] [facility] [place] [address] Basophils # (Auto) June 17, 2024 4:13pm 0.0 10^3/uL 0.0-0.1 [facility] [id number] [address] [place] [address] Urine Color June 17, 2024 4:05pm Lt yellow Yellow [facility] [id number] [address] [place] [address] Urine Clarity June 17, 2024 4:05pm Cloudy Clear [facility] [id number] [address] [place] [address] Urine pH June 17, 2024 4:05pm 6.0 6.0-8.0 [facility] [id number] [address] [place] [address] Urine Specific [place] June 17, 2024 4:05pm 1.007 1.000-1.03 0 [facility] [id number] [address] [place] [address] Urine Protein June 17, 2024 4:05pm Negative Negative [facility] [id number] [address] [place] [address] Urine Glucose (UA) June 17, 2024 4:05pm Negative Negative [facility] [id number] [address] [place] [address] Urine Ketones June 17, 2024 4:05pm Negative Negative [facility] [id number] [address] [place] [address] Urine Occult Blood June 17, 2024 4:05pm Negative Negative [facility] [id number] [address] [place] [address] Urine Nitrate June 17, 2024 4:05pm Positive Negative [facility] [id number] [address] [place] [address] Urine Bilirubin June 17, 2024 4:05pm Negative Negative [facility] [id number] [address] [place] [address] Urine Urobilinogen June 17, 2024 4:05pm 0.2 0.2-1.0 [facility] [id number] [address] [place] [address] Urine Leukocyte Esterase June 17, 2024 4:05pm 3+ Negative [facility] [id number] [address] [facility] [place] [address] Urine WBC June 17, 2024 4:05pm 20-30 /HPF 0-3 [facility] [id number] [address] [facility] [place] [address] Urine Culture Indicated June 17, 2024 4:05pm Yes Urine culture to follow. [facility] [id number] [address] [facility] [place] [address] Urine Bacteria June 17, 2024 4:05pm 2+ /HPF NONE SEEN [facility] [id number] [address] [facility] [place] [address] Sodium Level June 17, 2024 4:13pm 124 mmol/L 136-145 Results checked & Critical results called to JINNY IN ER on 06/17/24 at 1649 by YOLANDA. [facility] [id number] [address] [facility] [place] [address] Potassium Level June 17, 2024 4:13pm 4.5 mmol/L 3.5-5.1 [facility] [id number] [address] [facility] [place] [address] Chloride Level June 17, 2024 4:13pm 93 mmol/L 98-107 [facility] [id number] [address] [facility] [place] [address] Carbon Dioxide Level June 17, 2024 4:13pm 27 mmol/L 21-32 [facility] [id number] [address] [facility] [place] [address] Anion Gap June 17, 2024 4:13pm 4.0 MMOL/L 1.0-15.0 [facility] [id number] [address] [facility] [place] [address] Blood Urea Nitrogen June 17, 2024 4:13pm 24 mg/dL 7-18 [facility] [id number] [address] [facility] [place] [address] Creatinine June 17, 2024 4:13pm 1.24 mg/dL 0.70-1.30 [facility] [id number] [address] [place] [address] Estimated GFR (MDRD) June 17, 2024 4:13pm 55 UNITS= mL/min/1.73m squared Unable to flag low results Results less than 60 may warrant further investigationPat ients race is not known. If the patient is , multiply the calculated GFR result provided by 1.21. GFR Estimate should not be used to alter drug dosages. [facility] [id number] [address] [place] [address] BUN/Creatinine Ratio June 17, 2024 4:13pm 19.4 10.0-20.00 [facility] [id number] [address] [place] [address] Glucose Level June 17, 2024 4:13pm 112 mg/dL 70-99 [facility] [id number] [address] [place] [address] Calculated Osmolality June 17, 2024 4:13pm 255 275-295 [facility] [id number] [address] [place] [address] Calcium Level June 17, 2024 4:13pm 8.7 mg/dL 8.5-10.1 [facility] [id number] [address] [place] [address] Aspartate Amino Transf (AST/SGOT) June 17, 2024 4:13pm 21 U/L 15-37 [facility] [id number] [address] [place] [address] Alanine Aminotransfera se (ALT/SGPT) June 17, 2024 4:13pm 25 U/L 16-61 [facility] [id number] [address] [place] [address] Alkaline Phosphatase June 17, 2024 4:13pm 156 U/L 45-117 [facility] [id number] [address] [place] [address] [place] [address] Total Bilirubin June 17, 2024 4:13pm 0.35 mg/dL 0.20-1.00 [facility] [id number] [address] [facility] [place] [address] Total Protein June 17, 2024 4:13pm 6.9 g/dL 6.40-8.20 [facility] [id number] [address] [facility] [place] [address] Albumin June 17, 2024 4:13pm 3.7 g/dL 3.4-5.0 [facility] [id number] [address] [facility] [place] [address] Globulin June 17, 2024 4:13pm 3.2 Ratio 1.3-4.9 [facility] [id number] [address] [facility] [place] [address] Albumin/Globul in Ratio June 17, 2024 4:13pm 1.2 Ratio 1.2-2.3 [facility] [id number] [address] [facility] [place] [address] Vital Signs Vital Reading Result Reference Range [...] 10:26am Insurance Providers Guarantor Jameson Levy Address [address] [place] [address] Contact Info. Home Phone: Payer Policy Id Coverage Id Subscriber's Name Subscriber Id Effective Date Expiration Date [employer] [facility] [id number] Jameson Levy [id number] [facility] Gold MCREP [id number] Jameson Levy [id number] Self Pay Self N/A Encounters Encounter Location(s) Arrival/Admit Date Discharge/Depart Date Provider(s) Registered Referred [facility] Drop Off June 17, 2024 3:22pm Mark Ocampo MD Departed Emergency [facility]-Emergency Room June 17, 2024 3:47pm June [...]
--- OUTSIDE RECORDS SUMMARY | 2024-08-02 22:19 | External Medical Summary | Continuity of Care Document ---
Author Name Unknown Organization [facility] Address [address] [facility] [place] [address] Phone [phone] Care Team Providers Care Design Agent Name Role Phone Jb Garber DO Care Team Information Group Cio [phone] Jb Garber DO Primary Care Physician Problems [...] Qnty Indications Order ing Provider Date Ciprofloxacin [id number] Tablets 1 tab by mouth twice a day for infection 14tabs Mark Ocampo MD 06/17/2024 Tamsulosin HCL0.4mg Capsules 1 by mouth every day at bedtime for prostate 30caps Mark Ocampo MD 06/17/2024 Amlodipine Qebrzrgd2uk Tablets 1 by mouth every day 90tabs Jb Garber DO 06/08/[id number] daily 90tabs Unknown 12/22/2020 Magnesium Dapma594(240Mg) mg Tablets daily 30tabs Unknown 06/30/2020 Vitamin [id number] Tablets daily Unknown 02/24/2020 Immunizations CPT Code Status Date Vaccine Lot # [id number] Given 07/11/2021 Moderna (Covid- 19) vaccine, mRNA, [...] Range Note CBC W/ Auto Diff 06/17/2024 [facility] [address] [facility] [address] [phone] White Blood Count 7.6 10^3/uL Normal 4.1-10.2 [...] Normal 0.000-0.01 2 Comprehensive Metabolic Panel 06/17/[address] [address] [phone] Sodium 124 mmol/L Critical low 136-145 1 Potassium 4.5 mmol/L Normal 3.5-5.1 Chloride 93 mmol/L Low 98-107 Carbon Dioxide 27 mmol/L Normal 21-32 [facility] Anion Gap 4.0 mmol/L Normal 1.0-15 .0 [...] 1.2 Ratio Normal 1.2-2.3 Urine Microscopic 06/17/2024 [facility] [address] [place] [address] [phone] Color,Urine Lt Yellow Yellow Clarity,Urine Cloudy Clear PH,Urine 6.0 Normal 6.0-8.0 Specific [place],Urine 1.007 Normal 1.000-1.03 0 Protein,Urine Negative Negative [...] Trace Ua Blood Qual Trace Urine Specific [place] 1.010 Urine Ketone Auto Test Strip Negative [...] * PSA Screen, Ordered: 06/17/24 * Thyroid Ashley, Ordered: 06/17/24 * Comments:* Above Normal BMI, Diet counseling performed. Helpful resource: www.myplate.gov Exercise counseling performed. Helpful resource: www.nutrition.gov/topics/sgjyqekh-vyj-cmxkxtq * Follow up:* 1 week * All* [...] Urinate and urine infe ction Sent 07/01/[address] [place] [address] [place] [address]
--- OUTSIDE RECORDS SUMMARY | 2024-08-02 22:19 | External Medical Summary ---
Author Name Unknown Address Unknown Organization L1E:[facility] [address] [place] [address] Laboratory Report Ordering Provider Test Date Status Shirlene Muhammad 06/17/2024 16:13 Final Observation Date Value Abnormality Reference (Units ) Status White Blood Count 06/17/2024 16:18 7.6 Normal 4.1-10.2 (10 3/uL) Final RBC 06/17/2024 16:18 3.89 Below low normal 4.20-5.80 (10 6/uL) Final Hemoglobin 06/17/2024 16:18 11.8 Below low normal 13.0-17.0 (g/dL) Final HCT 06/17/2024 16:18 35.4 Below low normal 38-51 (%) Final MCV 06/17/2024 16:18 91.0 Normal 82.0-98.0 (fL) Final MCH 06/17/2024 16:18 30.3 Normal 27.0-34.0 (pg) Final MCHC 06/17/2024 16:18 33.3 Normal 31.0-36.0 (g/dL) Final Erythrocyte distribution width [Entitic volume] 06/17/2024 16:18 43.4 Normal 37-49 (fL) Final RDW 06/17/2024 16:18 13.2 Normal 11.8-14.8 (%) Final Platelets 06/17/2024 16:18 300 Normal 150-360 (10 3/uL) Final Mean Platelet Volume 06/17/2024 16:18 8.9 Below low normal 9.4-12.4 (fL) Final Segs 06/17/2024 16:18 72.8 Normal 42-75 (%) Final Lymphs, absolute 06/17/2024 16:18 15.2 Normal 14-42 (%) Final Monos 06/17/2024 16:18 8.5 Normal 4-13 (%) Final Eosinophils 06/17/2024 16:18 3.3 Normal 0-6 (%) Final Basos 06/17/2024 16:18 0.1 Normal 0-2 (%) Final Immature Granulocyte, Percent 06/17/2024 16:18 0.1 Normal 0.0-0.7 (%) Final NRBC% (Auto) 06/17/2024 16:18 0.0 Normal 0.0-0.2 (/100 WBC) Final Absolute Segs 06/17/2024 16:18 5.5 Normal 1.8-6.6 (10 3uL) Final Lymphocytes [#/volume] in Specimen by Automated count 06/17/2024 16:18 1.2 Normal 1.0-3.1 (10 3/uL) Final Monos, Abs 06/17/2024 16:18 0.6 Normal 0.0-1.0 (10 3uL) Final Eos, Abs 06/17/2024 16:18 0.3 Normal 0.0-0.5 (10 3uL) Final Basos, Abs 06/17/2024 16:18 0.0 Normal 0.0-0.1 (10 3/uL) Final Granulocytes [#/volume] in Blood by Automated count 06/17/2024 16:18 0.0 Normal 0.0-0.0 (10 3/uL) Final NRBC # (Auto) 06/17/2024 16:18 0.000 Normal 0.000-0.012 (10 3/uL) Final Performing Location [address] [address]
--- OUTSIDE RECORDS SUMMARY | 2024-08-02 22:19 | External Medical Summary ---
Author Name Unknown Address Unknown Organization L1E:[facility] [address] [place] [address] Laboratory Report Ordering Provider Test Date Status Shirlene Muhammad 06/17/2024 16:05 Final Observation Date Value Abnormality Reference (Units ) Status Color, Urine 06/17/2024 16:07 Lt Yellow Yellow Final Clarity, Urine 06/17/2024 16:07 Cloudy Clear Final pH, Urine 06/17/2024 16:07 6.0 Normal 6.0-8.0 Final Specific gravity of Urine by Automated test strip 06/17/2024 16:18 1.007 Normal 1.000-1.030 Final Protein [Presence] in Urine 06/17/2024 16:07 Negative Negative Final Glucose [Presence] in Urine 06/17/2024 16:07 Negative Negative Final Ketones [Mass/volume] in Urine by Automated test strip 06/17/2024 16:07 Negative Negative Final Blood,Urine 06/17/2024 16:07 Negative Negative Final Nitrate [Mass/volume] in Urine 06/17/2024 16:07 Positive Negative Final Bilirubin, Urine 06/17/2024 16:07 Negative Negative Final Urobilinogen [Presence] in Urine by Automated test strip 06/17/2024 16:07 0.2 0.2-1.0 Final Leukocyte esterase [Presence] in Urine by Automated test strip 06/17/2024 16:07 3+ Negative Final Leukocytes [Presence] in Urine sediment by Light microscopy 06/17/2024 16:19 20-30 0-3 (/HPF) Final Bacteria identified in Urine by Culture 06/17/2024 16:19 YES Final Urine culture to follow. Bacteria, Urine 06/17/2024 16:19 2+ NONE SE EN (/HPF) Final Performing Location [facility] [address] [place] [address]
--- OUTSIDE RECORDS SUMMARY | 2024-08-02 22:19 | External Medical Summary | Continuity of Care Document ---
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 (VIS) Detail SARS-COV-2 (COVID-19) MODERNA July 11, 2021 [id number] Relevant Diagnostic Tests and/or Laboratory Data Laboratory Results Test Date/Time Result Interpretation Reference Range Result Comment Performing Site White Blood Count June 17, 2024 4:13pm 7.6 10^3/uL 4.1-10.2 [facility] [id number] [address] [place] [id number] Red Blood Count June 17, 2024 4:13pm 3.89 10^6/uL 4.20-5.80 [facility] [id number] [address] [place] [address] Hemoglobin June 17, 2024 4:13pm 11.8 g/dL 13.0-17.0 [facility] [id number] [address] [place] [address] Hematocrit June 17, 2024 4:13pm 35.4 % 38-51 [facility] [id number] [address] [place] [address] Mean Corpuscular Volume June 17, 2024 4:13pm 91.0 fL 82.0-98.0 [facility] [id number] [address] [place] [address] Mean Corpuscular Hemoglobin June 17, 2024 4:13pm 30.3 pg 27.0-34.0 [facility] [id number] [address] [place] [address] Mean Corpuscular Hemoglobin Concent June 17, 2024 4:13pm 33.3 g/dL 31.0-36.0 [facility] [id number] [address] [place] [address] RDW Standard Deviation June 17, 2024 4:13pm 43.4 fL 37-49 [facility] [id number] [address] [facility] [place] [address] RDW Coefficient of Variation June 17, 2024 4:13pm 13.2 % 11.8-14.8 [facility] [id number] [address] [place] [address] Platelet Count June 17, 2024 4:13pm 300 10^3/uL 150-360 [facility] [id number] [address] [place] [address] Mean Platelet Volume June 17, 2024 4:13pm 8.9 fL 9.4-12.4 [facility] [id number] [address] [place] [address] Neutrophils (%) (Auto) June 17, 2024 4:13pm 72.8 % 42-75 [facility] [id number] [address] [place] [address] Lymphocytes (%) (Auto) June 17, 2024 4:13pm 15.2 % 14-42 [facility] [id number] [address] [place] [address] Monocytes (%) (Auto) June 17, 2024 4:13pm 8.5 % 4-13 [facility] [id number] [address] [place] [address] Eosinophils (%) (Auto) June 17, 2024 4:13pm 3.3 % 0-6 [facility] [id number] [address] [place] [address] Basophils (%) (Auto) June 17, 2024 4:13pm 0.1 % 0-2 [facility] [id number] [address] [place] [address] Immature Granulocytes % June 17, 2024 4:13pm 0.1 % 0.0-0.7 [facility] [id number] [address] [place] [address] Neutrophils # (Auto) June 17, 2024 4:13pm 5.5 10^3uL 1.8-6.6 [facility] [id number] [address] [place] [address] Lymphocytes # (Auto) June 17, 2024 4:13pm 1.2 10^3/uL 1.0-3.1 [facility] [id number] [address] [place] [address] Monocytes # (Auto) June 17, 2024 4:13pm 0.6 10^3uL 0.0-1.0 [facility] [id number] [address] [facility] [place] [address] Eosinophils # (Auto) June 17, 2024 4:13pm 0.3 10^3uL 0.0-0.5 [facility] [id number] [address] [facility] [place] [address] Basophils # (Auto) June 17, 2024 4:13pm 0.0 10^3/uL 0.0-0.1 [facility] [id number] [address] [place] [address] Urine Color June 17, 2024 4:05pm Lt yellow Yellow [facility] [id number] [address] [place] [address] Urine Clarity June 17, 2024 4:05pm Cloudy Clear [facility] [id number] [address] [place] [address] Urine pH June 17, 2024 4:05pm 6.0 6.0-8.0 [facility] [id number] [address] [place] [address] Urine Specific Apollo June 17, 2024 4:05pm 1.007 1.000-1.03 0 [facility] [id number] [address] [place] [address] Urine Protein June 17, 2024 4:05pm Negative Negative [facility] [id number] [address] [place] [address] Urine Glucose (UA) June 17, 2024 4:05pm Negative Negative [facility] [id number] [address] [place] [address] Urine Ketones June 17, 2024 4:05pm Negative Negative [facility] [id number] [address] [place] [address] Urine Occult Blood June 17, 2024 4:05pm Negative Negative [facility] [id number] [address] [place] [address] Urine Nitrate June 17, 2024 4:05pm Positive Negative [facility] [id number] [address] [place] [address] Urine Bilirubin June 17, 2024 4:05pm Negative Negative [facility] [id number] [address] [place] [address] Urine Urobilinogen June 17, 2024 4:05pm 0.2 0.2-1.0 [facility] [id number] [address] [place] [address] Urine Leukocyte Esterase June 17, 2024 4:05pm 3+ Negative [facility] [id number] [address] [facility] [place] [address] Urine WBC June 17, 2024 4:05pm 20-30 /HPF 0-3 [facility] [id number] [address] [facility] [place] [address] Urine Culture Indicated June 17, 2024 4:05pm Yes Urine culture to follow. [facility] [id number] [address] [facility] [place] [address] Urine Bacteria June 17, 2024 4:05pm 2+ /HPF NONE SEEN [facility] [id number] [address] [facility] [place] [address] Sodium Level June 17, 2024 4:13pm 124 mmol/L 136-145 Results checked & Critical results called to JINNY IN ER on 06/17/24 at 1649 by YOLANDA. [facility] [id number] [address] [facility] [place] [address] Potassium Level June 17, 2024 4:13pm 4.5 mmol/L 3.5-5.1 [facility] [id number] [address] [facility] [place] [address] Chloride Level June 17, 2024 4:13pm 93 mmol/L 98-107 [facility] [id number] [address] [facility] [place] [address] Carbon Dioxide Level June 17, 2024 4:13pm 27 mmol/L 21-32 [facility] [id number] [address] [facility] [place] [address] Anion Gap June 17, 2024 4:13pm 4.0 MMOL/L 1.0-15.0 [facility] [id number] [address] [facility] [place] [address] Blood Urea Nitrogen June 17, 2024 4:13pm 24 mg/dL 7-18 [facility] [id number] [address] [facility] [place] [address] Creatinine June 17, 2024 4:13pm 1.24 mg/dL 0.70-1.30 [facility] [id number] [address] [facility] [place] [address] Estimated GFR (MDRD) June 17, 2024 4:13pm 55 UNITS= mL/min/1.73m squared Unable to flag low results Results less than 60 may warrant further investigationPat ients race is not known. If the patient is , multiply the calculated GFR result provided by 1.21. GFR Estimate should not be used to alter drug dosages. [facility] [id number] [address] [facility] [place] [address] BUN/Creatinine Ratio June 17, 2024 4:13pm 19.4 10.0-20.00 [facility] [id number] [address] [facility] [address] Glucose Level June 17, 2024 4:13pm 112 mg/dL 70-99 [facility] [id number] [address] [facility] [address] Calculated Osmolality June 17, 2024 4:13pm 255 275-295 [facility] [id number] [address] [facility] [address] Calcium Level June 17, 2024 4:13pm 8.7 mg/dL 8.5-10.1 [facility] [id number] [address] [facility] [address] Aspartate Amino Transf (AST/SGOT) June 17, 2024 4:13pm 21 U/L 15-37 [facility] [id number] [address] [facility] [place] [address] Alanine Aminotransfera se (ALT/SGPT) June 17, 2024 4:13pm 25 U/L 16-61 [facility] [id number] [address] [facility] [address] Alkaline Phosphatase June 17, 2024 4:13pm 156 U/L 45-117 [facility] [id number] [address] [place] [address] [place] [address] Total Bilirubin June 17, 2024 4:13pm 0.35 mg/dL 0.20-1.00 [facility] [id number] [address] [facility] [place] [address] Total Protein June 17, 2024 4:13pm 6.9 g/dL 6.40-8.20 [facility] [id number] [address] [facility] [place] [address] Albumin June 17, 2024 4:13pm 3.7 g/dL 3.4-5.0 [facility] [id number] [address] [facility] [place] [address] Globulin June 17, 2024 4:13pm 3.2 Ratio 1.3-4.9 [facility] [id number] [address] [facility] [place] [address] Albumin/Globul in Ratio June 17, 2024 4:13pm 1.2 Ratio 1.2-2.3 [facility] [id number] [address] [facility] [place] [address] Vital Signs Vital Reading Result Reference Range [...] 10:26am Insurance Providers Guarantor Jameson Levy Address [address] [place] [address] Contact Info. Home Phone: Payer Policy Id Coverage Id Subscriber's Name Subscriber Id Effective Date Expiration Date [employer] [facility] [id number] Jameson Levy [id number] [facility] Gold MCREP [id number] Jameson Levy [id number] Self Pay Self N/A Encounters Encounter Location(s) Arrival/Admit Date Discharge/Depart Date Provider(s) Registered Referred [facility]-Lab Drop Off June 17, 2024 3:22pm Mark Ocampo MD Departed Emergency [facility]-Emergency Room June 17, 2024 3:47pm June 17, [...]
--- OUTSIDE RECORDS SUMMARY | 2024-08-02 22:19 | External Medical Summary ---
Author Name Unknown Address Unknown Organization : Laboratory Report Ordering Provider Test Date Status Shirlene Muhammad 06/17/2024 16:19 Final Clean Catch
See [id number] fo r work up Observation Date Value Abnormality Reference (Units ) Status Performing Location
[2024-08-02] MEDS: SODIUM CHLORIDE 0.9% 1,000 ML IV SCH (22:21)
[2024-08-02] MEDS: TAMSULOSIN HCL 0.4 MG CAP PO ONE (23:11)
--- NOTE | 2024-08-02 23:44 | CT Scan Report ---
Exam(s): CT ABDOMEN + PELVIS Without Contrast EXAM: CT Abdomen and Pelvis Without Intravenous Contrast CLINICAL HISTORY: Reason for exam: urinary issues, poss obstruc. TECHNIQUE: Axial computed tomography images of the abdomen and pelvis without intravenous contrast. CTDI is 16.5 mGy and DLP is 871.08 mGy-cm. Automated exposure control was utilized for the study. A dose lowering technique was utilized adhering to the principles of ALARA. COMPARISON: No relevant prior studies available. FINDINGS: Lung bases: Unremarkable. No mass. No consolidation. ABDOMEN: Liver: Unremarkable. Gallbladder and bile ducts: Unremarkable. No calcified stones. No ductal dilation. Pancreas: Unremarkable. No ductal dilation. Spleen: Calcified splenic granulomas. Adrenals: Unremarkable. No mass. Kidneys and ureters: Small bilateral renal cysts. No hydronephrosis, nephrolithiasis, or obstructive uropathy. Stomach and bowel: Large-volume fecal retention, concerning for constipation. No mucosal thickening. PELVIS: Appendix: No findings to suggest acute appendicitis. Bladder: Right-sided bladder diverticulum measures 7.1 x 3.9 cm. No stones. Reproductive: Unremarkable as visualized. ABDOMEN and PELVIS: Intraperitoneal space: Unremarkable. No free air. No significant fluid collection. Bones/joints: Degenerative changes of the spine. No acute fracture. No dislocation. Soft tissues: Unremarkable. Vasculature: Atherosclerotic changes of the aorta. No abdominal aortic aneurysm. Lymph nodes: Unremarkable. No enlarged lymph nodes. IMPRESSION: 1. No hydronephrosis, nephrolithiasis, or obstructive uropathy. 2. Large-volume fecal retention, concerning for constipation. 3. Right-sided bladder diverticulum measures 7.1 x 3.9 cm. Electronically signed by: Max Santana MD 08/02/24 23:43 PM
[2024-08-03] MEDS ORDERED: ONDANSETRON INJ 2 MG/ML 2 ML VIAL IV PRN (00:30)
[2024-08-03 01:01] LABS: BUN Creatinine Ratio 13.6 (10-20); Calcium 8.5 mg/dl (8.6-10.3); Est GFR (Non-African American) 47.5 ml/min; Potassium 5.3 mmol/L (3.5-5.1)
[2024-08-03 03:31] LABS: BUN Creatinine Ratio 13.1 (10-20); Calcium 8.3 mg/dl (8.6-10.3); Creatinine Clr Calc Pharmacy 33.5 ml/min; Est GFR (African American) 56.1 ml/min; Est GFR (Non-African American) 48.4 ml/min; Magnesium 1.9 mg/dl (1.7-2.4); Potassium 4.7 mmol/L (3.5-5.1)
[2024-08-03 03:33] LABS: Basophils # (auto) 0.02 K/uL (0.00-0.20); Basophils % (auto) 0.3 %; Eosinophils # (auto) 0.01 K/uL (0.00-0.50); Eosinophils % (auto) 0.2 %; Hematocrit (blood only) 30.4 % (42.0-52.0); Hemoglobin 10.3 g/dl (14.0-18.0); Immature Granulocytes # (auto) 0.02 K/uL (0.01-0.20); Immature Granulocytes % (auto) 0.3 %; Lymphocytes # (auto) 0.72 K/uL (1.20-3.40); Lymphocytes % (auto) 12.5 %; Mean Corpuscular Hemoglobin 29.7 pg (25.0-34.0); Mean Corpuscular Hgb Conc 33.9 g/dL (32.0-36.0); Mean Corpuscular Volume 87.6 fL (80.0-100.0); Mean Platelet Volume 8.8 fL (9.4-12.4); Monocytes # (auto) 0.77 K/uL (0.11-0.59); Monocytes % (auto) 13.4 %; Neutrophils % (auto) 73.3 %; Platelet Count 320 K/uL (130-400); RDW Coefficient of Variation 12.9 % (11.5-14.5); RDW Standard Deviation 41.1 fL (36.4-46.3); Red Blood Count 3.47 M/uL (4.70-6.10); White Blood Count 5.74 K/ul (4.8-10.8)
[2024-08-03] MEDS: LIDOCAINE 2% JELLY 5 ML TUBE EXT ONE (07:05)
[2024-08-03] MEDS: HEPARIN SOD 5,000 UNIT/0.5 ML VIAL SQ SCH (08:40)
[2024-08-03] MEDS: POLYETHYLENE (MIRALAX) 17 GM PACK PO SCH (08:40)
[2024-08-03] MEDS: amLODIPine BESYLATE 5 MG TAB PO SCH (08:41)
[2024-08-03] MEDS: DOCUSATE SODIUM 100 MG CAP PO ONE (08:41)
[2024-08-03] MEDS: SODIUM CHLORIDE 1 GM TABLET PO SCH (08:41)
[2024-08-03] MEDS: PANTOprazole 40 MG TAB PO SCH (08:41)
--- NOTE | 2024-08-03 15:03 | Hospitalist Progress Note ---
Date of Service August 03, 2024 Assessment & Plan (1) VERENICE (acute kidney injury): Plan: Mr. Levy is an 88 yo M who was admitted for nausea/vomiting and weakness on 08/02/24. (1) VERENICE (acute kidney injury): Plan: - Cr at 1.45 on arrival, up from 1.07 in 2018. down to 1.30 today --> improving - etiology likely pre-renal due to volume loss - Avoid nephrotoxic agents where possible - IVF resuscitation with NSS at 100mL/hr x 2 L - trend BMP (2) Hyponatremia: Plan: - Severe acute hyponatremia at 116 on arrival --> 121 today - likley the cause of his weakness - Serum osms low at 253, consistent with hypotonic hyponatremia - urine osms low at 300, urine sodium at 37 --> SIADH - SIADH likely secondary to VERENICE/UTI - Sodium chloride tablets 1000 mg BID - NSS 1000 mL bolus + IVF maintenance (as above) - Can consider fluid restriction -- however per nursing, he does not appear to be drinking a lot of fluid Trend BMP q4h for now; monitor for overcorrection (ie goal is to replace Na by 4-6 meq/day to avoid ODS) (3) UTI (urinary tract infection): Plan: - UA positive on arrival; follow urine culture - Of note, he had been on Bactrium course prior to admission - Clinically, patient endorses hematuria and burning with urination (which have largely resolved over the past week) - Working to obtain records from Dr. Delgado's (outside urologist) office for notes on recent urologic procedures + prior UCxs - Ceftriaxone 2000 mg IV q24h for now (4) Retention of urine: Plan: Post-void residual on bladder scan was 560cc Zimmer ordered Tansulosin 0.4mg HS (5) Vomiting: Plan: - Nausea x 3 days, and acute onset of vomiting around noon on 08/02 - A/P CT showing large volume fecal retention (ie constipation) --> this may be cause of nasuea. Orders for scheduled miralax and Colace - It is also possible Bactrim use caused the nausea (6) Hyperkalemia: Plan: K 5.5 on arrival --> has since resolved In the setting of VERENICE IVF (as above) Continuous telemetry monitoring Trend BMP (7) Anemia: Plan: Chronic; mild; Hgb 10.9 on arrival; MCV WNL at 86.9 No signs of bleeding on clinical exam Plan Disposition: Admit to [facility] telemetry Full code Regular diet VTE PPx: Heparin 5000u SQ q12h Admission and Anticipated Discharge Date Admission Date: August 02, 2024 Subjective Feeling much better -- eating well and ambulating normally Review of Systems Review of Systems: All systems reviewed & are unremarkable except as noted in HPI & below Physical Exam Constitutional: WD/WN, vitals as above Eyes: + anicteric sclerae ENMT: external ear and nose normal, oropharynx normal Neck: trachea midline, no thyromegaly Respiratory: normal respiratory effort, lungs clear to auscultation Cardiovascular: RRR, no murmur, no edema Gastrointestinal (Abdomen): normal bowel sounds, soft, nontender, no hepatosplenomegaly Musculoskeletal: Head/Neck/Chest: normocephalic and head atraumatic Skin: no rashes, warm and dry Psychiatric: A+Ox3, euthymic affect Results & Data Results & Data Vital Signs (Past 12 Hours) Vital Signs Temp Pulse Pulse Pulse Resp BP BP 08/03/24 07:24 36.6 C 83 18 131/71 08/03/24 07:17 70 08/03/24 02:59 36.2 C L 75 18 109/56 L 08/03/24 02:17 08/03/24 00:38 08/03/24 00:38 36.5 C 68 18 153/69 H 08/03/24 00:16 71 08/02/24 22:24 68 17 143/75 H 08/02/24 21:33 69 20 08/02/24 21:00 72 23 153/73 H 08/02/24 20:33 68 22 08/02/24 20:30 142/68 H 08/02/24 20:30 142/68 H 08/02/24 20:25 67 Pulse Ox O2 Del Method O2 Flow Rate 08/03/24 07:24 90 Nasal Cannula 2 08/03/24 07:17 08/03/24 02:59 94 Nasal Cannula 2 08/03/24 02:17 Nasal Cannula 2 08/03/24 00:38 Nasal Cannula 2 08/03/24 00:38 96 Nasal Cannula 2 08/03/24 00:16 08/02/24 22:24 92 Nasal Cannula 2 08/02/24 21:33 93 08/02/24 21:00 96 08/02/24 20:33 91 08/02/24 20:30 08/02/24 20:30 08/02/24 20:25 PG Care Time/CCT Total # of Minutes Spent Total Time Spent with Patient: Total time spent is greater than 50% in coordination of care (as documented) at patient's floor/unit and/or counseling patient: C[place] [address] SUB INP/OBS CARE 235MIN Patient Type Established Diagnoses VERENICE (acute kidney injury) N17.9
[2024-08-03] MEDS: POLYETHYLENE (MIRALAX) 17 GM PACK PO STA (16:57)
[2024-08-03 17:06] LABS: BUN Creatinine Ratio 12.1 (10-20); Calcium 8.3 mg/dl (8.6-10.3); Est GFR (Non-African American) 47.5 ml/min; Potassium 4.5 mmol/L (3.5-5.1)
[2024-08-03] MEDS: ACETAMINOPHEN 325 MG TAB PO PRN (19:49)
[2024-08-03] MEDS: TAMSULOSIN HCL 0.4 MG CAP PO SCH (19:52)
[2024-08-03] MEDS ORDERED: cefTRIAXone SODIUM 2,000 MG/50 ML BAG IV SCH (21:00)
[2024-08-03 21:16] LABS: BUN Creatinine Ratio 15.6 (10-20); Calcium 8.1 mg/dl (8.6-10.3); Creatinine Clr Calc Pharmacy 35.7 ml/min; Est GFR (African American) 60.5 ml/min; Est GFR (Non-African American) 52.2 ml/min; Potassium 4.7 mmol/L (3.5-5.1)
[2024-08-04 00:55] LABS: BUN Creatinine Ratio 16.1 (10-20); Creatinine Clr Calc Pharmacy 35.1 ml/min; Est GFR (African American) 59.4 ml/min; Est GFR (Non-African American) 51.2 ml/min; Potassium 4.9 mmol/L (3.5-5.1)
[2024-08-04 07:39] LABS: BUN Creatinine Ratio 15.3 (10-20); Creatinine Clr Calc Pharmacy 36.9 ml/min; Est GFR (Non-African American) 54.4 ml/min; Potassium 4.7 mmol/L (3.5-5.1)
[2024-08-04] MEDS: POLYETHYLENE (MIRALAX) 17 GM PACK PO SCH (08:02)
[2024-08-04] MEDS: SODIUM CHLORIDE 1 GM TABLET PO SCH (10:06)
[2024-08-04 11:58] LABS: Thyroid Stimulating Hormone 0.367 uIu/ml (0.300-4.500)
[2024-08-04] MEDS: DOCUSATE SODIUM 100 MG CAP PO SCH (12:05)
--- NOTE | 2024-08-04 13:11 | Electrocardiogram Report ---
Test Reason : Blood Pressure : */* mmHG Vent. Rate : 72 BPM Atrial Rate : 72 BPM P-R Int : 190 ms QRS Dur : 90 ms QT Int : 376 ms P-R-T Axes : 63 -9 55 degrees QTcB Int : 411 ms Normal sinus rhythm Normal ECG When compared with ECG of 29-Jun-2018 18:03, No significant change was found Confirmed by Jeovanny Reed ([id number]) on 08/04/2024 1:11:15 PM Referred By: Confirmed By: Jeovanny Reed
[2024-08-04] MEDS: AMOXICILLIN 500 MG CAP PO SCH (16:32)
[2024-08-04 16:45] LABS: BUN Creatinine Ratio 13.5 (10-20); Creatinine Clr Calc Pharmacy 34.6 ml/min; Est GFR (African American) 58.2 ml/min; Est GFR (Non-African American) 50.2 ml/min; Potassium 4.5 mmol/L (3.5-5.1)
[2024-08-04] MEDS: SODIUM CHLORIDE 0.9% 1,000 ML IV SCH (17:46)
--- NOTE | 2024-08-04 19:22 | Billing Data ---
Date of Service August 04, 2024 Coding Level of Care Code 34019 INT INP/OBS CARE
--- NOTE | 2024-08-04 20:24 | Hospitalist Progress Note ---
Date of Service August 04, 2024 Assessment & Plan (1) VERENICE (acute kidney injury): Plan: Mr. Levy is an 88 yo M who was admitted for nausea/vomiting and weakness on 08/02/24. (1) VERENICE (acute kidney injury): Plan: - Cr at 1.45 on arrival, up from 1.07 in 2018. 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 (3) UTI (urinary tract infection): Plan: - UA positive on arrival; urine culture grew enterococcus - Of note, he had been on Bactrium course prior to admission - Clinically, patient endorses hematuria and burning with urination (which have largely resolved over the past week) - Working to obtain records from Dr. Delgado's (outside urologist) office for notes on recent urologic procedures + prior UCxs - Ceftriaxone 2000 mg IV q24h stopped --> Transitioned to Amoxicillin PO for enterococcal coverage. (4) Retention of urine: Plan: Post-void residual on bladder scan was 560cc Zimmer ordered Tansulosin 0.4mg HS (5) Vomiting: Plan: - Nausea x 3 days, and acute onset of vomiting around noon on 08/02 - A/P CT showing large volume fecal retention (ie constipation) --> this may be cause of nasuea. Orders for scheduled miralax and Colace - It is also possible Bactrim use caused the nausea -- resolved (6) Hyperkalemia: Plan: K 5.5 on arrival --> has since resolved In the setting of VERENICE IVF (as above) (7) Anemia: Plan: Chronic; mild; Hgb 10.9 on arrival; MCV WNL at 86.9 No signs of bleeding on clinical exam Plan Disposition: Admit to [facility] telemetry Full code Regular diet VTE PPx: Heparin 5000u SQ q12h Admission and Anticipated Discharge Date Admission Date: August 02, 2024 Subjective Feeling well, wants to go home. Moving his bowels. Review of Systems Review of Systems: All systems reviewed & are unremarkable except as noted in HPI & below Physical Exam Constitutional: WD/WN, vitals as above Eyes: + anicteric sclerae ENMT: external ear and nose normal, oropharynx normal Neck: trachea midline, no thyromegaly Respiratory: normal respiratory effort, lungs clear to auscultation Cardiovascular: RRR, no murmur, no edema Gastrointestinal (Abdomen): normal bowel sounds, soft, nontender, no hepatosplenomegaly Musculoskeletal: Head/Neck/Chest: normocephalic and head atraumatic Skin: no rashes, warm and dry Psychiatric: A+Ox3, euthymic affect Results & Data Results & Data Vital Signs (Past 12 Hours) Vital Signs Temp Pulse Pulse Resp BP Pulse Ox O2 Del Method 08/04/24 19:47 36.7 C 77 18 121/74 91 Room Air 08/04/24 19:03 94 Room Air 08/04/24 17:39 36.5 C 79 18 123/70 94 Room Air 08/04/24 14:51 73 08/04/24 11:17 36.8 C 79 18 123/67 91 Room Air PG Care Time/CCT Total # of Minutes Spent Total Time Spent with Patient: Total time spent is greater than 50% in coordination of care (as documented) at patient's floor/unit and/or counseling patient: [place] [address] SUB INP/OBS CARE 2/35MIN Patient Type Established Diagnoses VERENICE (acute kidney injury) N17.9
[2024-08-05 07:41] LABS: Calcium 7.8 mg/dl (8.6-10.3); Creatinine Clr Calc Pharmacy 43.6 ml/min; Est GFR (Non-African American) 66.4 ml/min; Potassium 4.5 mmol/L (3.5-5.1)
[2024-08-05 07:51] VITALS: RESP 16
[2024-08-05 15:03] VITALS: TEMP 97.7; O2SAT 93
[2024-08-05 16:26] VITALS: PULSE 79
[2024-08-05 17:29] VITALS: BP 90/48
[2024-08-05] MEDS ORDERED: AMOXICILLIN 875 MG TAB PO SCH (17:30)
== END 2024-08-05 17:57 | disposition home or self-care (01) | DRG 683 ==
LOC: ED 18:23 → 2N 21:20 → SUATTDRO 21:20 → 2N 08-03 02:17